=== PATIENT | male | born 1945 | race Hispanic/Latino ===

== ENCOUNTER 2017-05-14 09:41 | Inpatient (IN) | payer OTHER ==
[~2017-05-14 09:41] MED LIST: ISOVUE-370 76%-LOCM 1 ML ONE
--- NOTE | 2017-05-14 11:19 | RAD ---
TWO VIEWS CHEST: HISTORY: Fever. Patient on chemotherapy for prostate cancer. FINDINGS: PA and lateral views of the chest are obtained. Calcification of the aorta is seen. The lungs are well aerated. No evidence of active intrathoraci c disease is seen. No evidence of effusions, pneumonia, or pneumothorax is seen. IMPRESSION: No evidence of acute intrathoracic abnormality is seen. POS: [facility]
[2017-05-14 11:34] LABS: Hematocrit 30.8 % (42.0-52.0); Mean Platelet Volume 7.9 fL (7.4-10.4); White Blood Cell (WBC) Count 31.3 thou/uL (4.8-10.8)
[2017-05-14 11:44] LABS: Prothrombin Time 14.7 SEC (12.0-14.7)
[2017-05-14 11:45] LABS: PTT 41.3 SEC (22.9-36.1)
[2017-05-14 11:53] LABS: ALT (SGPT) 17 U/L (8-55); AST (SGOT) 35 U/L (5-34); Alkaline Phosphatase 225 U/L (40-150); Anion Gap 17 mmol/L (10-20); BUN (Urea Nitrogen) 20 mg/dL (8.4-25.7); Band 9 % (5-11); Bilirubin, Total 0.7 mg/dL (0.2-1.2); Calc. Creatinine Clearance 0 mL/min (70-130); Calcium 8.3 mg/dL (7.8-10.44); Carbon Dioxide 17 mmol/L (23-31); Chloride 98 mmol/L (98-107); Estimated GFR-MDRD 65; Globulin 3.2 g/dL (2.4-3.5); Lipase 25 U/L (8-78); Macrocytosis SLIGHT = 6-15 cells (100X) (0-5/hpf); Magnesium 1.9 mg/dL (1.6-2.6); Metamyelocyte 1 % (0-0); Neutrophil 83 % (42-75); Poikilocytosis SLIGHT = 6-15 cells (100X) (0-5/hpf); Protein, Total 6.6 g/dL (5.8-8.1)
[2017-05-14 11:54] LABS: Lactic Acid - Sepsis 2.4 mmol/L (0.5-2.2)
[2017-05-14 12:03] LABS: Troponin I Less than 0.010 ng/mL (< 0.028)
[2017-05-14] MEDS ORDERED: Sodium Chloride 0.9% 100 ML ONE ×2 (12:16→15:49)
[2017-05-14 13:32] LABS: Bacteria/HPF 1+ HPF (None Seen); RBC/HPF GREATER THAN 50-TNTC HPF (0-3); Squamous Epithelial 0-3 HPF (0-3)
[2017-05-14 13:35] LABS: Bilirubin Moderate (Negative); Blood, Urine Large (Negative); Glucose, Urine (Dipstick) Negative (Negative); Ketone, Urine Trace mg/dL (Negative); Nitrite Positive (Negative); Protein, Urine (Dipstick) 300 mg/dL (Neg-Trace)
[2017-05-14 13:37] LABS: Bacteria/HPF 4+ HPF (None Seen)
[2017-05-14 13:39] LABS: Bilirubin Negative (Negative); Blood, Urine Large (Negative); Glucose, Urine (Dipstick) Negative (Negative); Ketone, Urine Negative (Negative); Nitrite Negative (Negative); Protein, Urine (Dipstick) 300 mg/dL (Neg-Trace); Urobilinogen 0.2 mg/dL (0.2-1.0)
[2017-05-14 13:53] LABS: Hyaline Casts/LPF NONE SEEN LPF (0-3 Hyaline); Yeast-All Forms None Seen HPF (None Seen)
[2017-05-14 13:56] LABS: Hyaline Casts/LPF NONE SEEN LPF (0-3 Hyaline); RBC/HPF GREATER THAN 50-TNTC HPF (0-3); Yeast-All Forms None Seen HPF (None Seen)
[2017-05-14] MEDS ORDERED: Meropenem 1 GM VIAL ONE (15:49)
[2017-05-14] MEDS ORDERED: Norepinephrine 8 MG/0.9% NS 250 ML ONE (15:49)
[2017-05-14 16:29] LABS: Magnesium 1.7 mg/dL (1.6-2.6); Phosphorus 3.1 mg/dL (2.3-4.7)
--- NOTE | 2017-05-14 16:32 | CT ---
HISTORY: 71-year-old with history of fever, nausea. CONTRAST ENHANCED CT IMAGES ABDOMEN AND PELVIS 05/14/[address] images abdomen and pelvis performed. Unfortunately oral contrast was not given. CT images demonstrate some atelectasis in the lung bases. Bilateral nephrostomy tubes are in place. The liver and spleen are unremarkable. The gallbladder and pancreas are unremarkable. Adrenal glands are unremarkable. Cortical cysts seen in the right kidney. No dilated loops of small bowel seen. No evidence of periaortic lymphadenopathy seen. There is a moderate amount of stool in the ascending c olon. There appears to be stool also in the distal small bowel. This has resulted in some distal sma ll bowel dilatation. Atherosclerotic calcification of the abdominal aorta seen. IMPRESSION: 1. Radiopaque material in the bladder concerning for bladder neoplasm with occlusion of the dis chetan ureters. 2. Abnormal dilatation of the distal small bowel with stool extending from the colon into the d istal small bowel. POS: [facility]
--- NOTE | 2017-05-14 16:32 | PDOC.EVN ---
Event Note - Event Note Event Note: Patient seen and examined. Full code. DPOA- makes his own decisions with the help of family.
--- NOTE | 2017-05-14 16:43 | HP ---
DATE OF ADMISSION: 05/14/2017 PRIMARY CARE PHYSICIAN: None. PRIMARY ONCOLOGIST: Dr. Ronquillo. PRIMARY UROLOGIST: Dr. Hardy. CHIEF COMPLAINT: Fever. HISTORY OF PRESENT ILLNESS: Patient is a 71-year-old male with prostate cancer, currently on chemot herapy, who presented with fever over the last 24 hours. He also had some nausea; however, denies a ny other symptoms. His maximum temperature was 101. He currently has bilateral nephrostomy that wa s placed earlier this year. He was admitted for septic shock secondary to urinary tract infection i n January of this year. His C. diff antigen was also positive. He denies any flank pain, cough, short ness of breath, wheezing, altered mentation, diarrhea, or change in the consistency of his urine. In the emergency room, his blood pressure dropped to systolic 70s requiring a central line. His tem perature in the ER was 98.3 with respiration of 18, pulse rate of 131, O2 saturation of 97% on room air. His urinalysis was consistent with UTI. His WBC count was 31.3 with 83% neutrophils. PAST MEDICAL HISTORY: 1. Metastatic prostate cancer, currently on chemotherapy per Dr. Ronquillo. 2. Paroxysmal atrial fibrillation. 3. Septic shock secondary to urinary tract infection in 02/05. 4. Clostridium difficile antigen positive in 02/05. 5. Chronic anemia. 6. Bilateral hydronephrosis, status post bilateral nephrostomy tubes. PAST SURGICAL HISTORY: Bilateral nephrostomies. ALLERGIES: No known drug allergies. CURRENT HOME MEDICATIONS: Diltiazem once a day, dose unknown; prednisone 5 mg daily. The patient d oes not remember all of his home medications. We will try to obtain an accurate list when family timoteo palma. SOCIAL HISTORY: Patient currently lives at home with his family. No current use of smoking, alcoho l or drug use. FAMILY HISTORY: Negative for inheritable diseases. REVIEW OF SYSTEMS: The following complete review of systems was negative, unless otherwise mentione d in the HPI or below: CONSTITUTIONAL: Weight loss or gain, ability to conduct usual activities. SKIN: Rash, itching. EYES: Double vision, pain. ENT/MOUTH: Nose bleeding, neck stiffness, pain, tenderness. CARDIOVASCULAR: Palpitations, dyspnea on exertion, orthopnea. RESPIRATORY: Shortness of breath, wheezing, cough, hemoptysis, fever or night sweats. GASTROINTESTINAL: Poor appetite, abdominal pain, heartburn, nausea, vomiting, constipation, or diar janette. GENITOURINARY: Urgency, frequency, dysuria, nocturia. MUSCULOSKELETAL: Pain, swelling. NEUROLOGIC/PSYCHIATRIC: Anxiety, depression. ALLERGY/IMMUNOLOGIC: Skin rash, bleeding tendency. PHYSICAL EXAMINATION: VITAL SIGNS: As discussed above. GENERAL: A 71-year-old male in no apparent distress. Denies any pain. Thin built. HEENT: Head atraumatic, normocephalic. Sclerae anicteric. Dry mucous membranes. No oral lesion. NECK: Supple, no JVD appreciated. No carotid bruit. No neck stiffness. LUNGS: Clear to auscultation bilaterally with scattered rhonchi at bases. HEART: S1, S2 present. Regular rate and rhythm, tachycardic. No rubs or gallops. ABDOMEN: Soft, nontender, bowel sounds present. Bilateral nephrostomy noted without any drainage a round the tubes. Urine appeared clear. EXTREMITIES: No edema or calf tenderness. NEUROLOGIC: Grossly nonfocal, moves all 4 extremities. PSYCHIATRY: Alert, awake, oriented x3. SKIN: Warm and dry. LYMPH NODES: No palpable lymph nodes in the neck. PERIPHERAL VASCULAR: Radial pulses palpable bilaterally. MUSCULOSKELETAL: No joint swelling or tenderness. SKIN: Warm and dry. LYMPH NODES: No palpable lymph nodes in the neck. LABORATORY FINDINGS: 1. CBC showed WBC 31.3 with hemoglobin 9.9 and platelet of 173. 2. Chemistries showed sodium 128, potassium 4.2, chloride 98, bicarbonate 17, BUN 20, creatinine 1. 12. 3. Cardiac enzymes were normal. 4. BNP 103.9. 5. Lactic acid 2.4. 6. Urinalysis showed greater than 50 wbc's and rbc's with 4+ bacteria. Chest x-ray by my review was negative for infiltrate. Telemetry monitoring by my review showed sinu s tachycardia. IMPRESSION: 1. Severe sepsis with acute organ dysfunctions/septic shock, suspected secondary to urinary tract i nfection. 2. Urinary tract infection, complicated due to indwelling nephrostomy catheter. 3. Metastatic prostate cancer, currently on chemotherapy. 4. Paroxysmal atrial fibrillation, not an anticoagulation candidate due to history of malignancy. 5. History of Clostridium difficile antigen positive. 6. Chronic macrocytic anemia. 7. Lactic acidosis/metabolic acidosis secondary to sepsis. 8. Hyponatremia, probably secondary to dehydration/sepsis. 9. History of septic shock secondary to urinary tract infection with Citrobacter, Enterococcus and pseudomonas in January of this year. He was neutropenic at that time. 10. History of bilateral hydronephrosis, status post bilateral percutaneous nephrostomy tubes. PLAN: The patient will be monitored in the Intensive Care Unit. Critical Care will be consulted. We will start him on Levophed with empiric antibiotics to cover for ESBL. We will continue IV fluid s. Confirm home medications. Deep venous thrombosis prophylaxis. We will check serum osmolality d ue to hyponatremia. We will also check cortisol and CRP. We will consider a stress dose of steroid s if his blood pressure does not respond. We will repeat lactic acid. Plan of care was discussed with the patient and he stated understanding LEVEL OF RISK: High. CONDITION OF THE PATIENT: Critical.
--- NOTE | 2017-05-14 16:45 | RAD ---
AP VIEW OF THE CHEST: 05/14/17 INDICATION: Emergency exam. COMPARISON: Prior exam dated 05/14/17. FINDINGS: Since the comparison examination there has been interval placement of a right subclavian central will ous catheter. The catheter tip projects in the region of the distal SVC. No air space consolidation, pleural effusion, or pneumothorax is evident. Heart size is accentuated by exam technique. IMPRESSION: New right subclavian central venous catheter. POS: [facility]
[2017-05-14] MEDS ORDERED: Ondansetron HCl/PF 4 MG/2 ML Vial ONE (16:56)
[2017-05-14] MEDS ORDERED: Norepinephrine 8 MG/250 ML BAG IVPB PRN (20:33)
[2017-05-14] MEDS ORDERED: Sodium Chloride 0.45% 1,000 ML IV SCH (20:45)
[2017-05-14] MEDS ORDERED: Acetaminophen 325 MG TAB PO PRN (20:49)
[2017-05-14] MEDS ORDERED: Ondansetron HCl/PF 4 MG/2 ML Vial IVP PRN (20:49)
[2017-05-14] MEDS ORDERED: Eucerin (Mineral Oil/Petrolatum,White) 30 gm Jar TOP PRN (20:49)
[2017-05-14] MEDS ORDERED: [UNRECOGNIZED DRUG - REMARK] IVPB PRN (20:49)
[2017-05-14] MEDS ORDERED: Ondansetron ODT 4 MG TAB PO PRN (20:49)
[2017-05-14] MEDS ORDERED: Norepinephrine 8 MG/0.9% NS 250 ML IVPB PRN (20:49)
[2017-05-14] MEDS ORDERED: Senokot 8.6 MG TAB PO PRN (20:49)
[2017-05-14] MEDS ORDERED: Loratadine 10 MG TAB PO PRN (20:49)
[2017-05-14] MEDS ORDERED: Nitroglycerin 0.4 MG TAB (25 Tab Bottle) PO PRN (20:49)
[2017-05-14] MEDS ORDERED: Labetalol HCl 100 MG/20 ML VIAL SLOW IVP PRN (20:49)
[2017-05-14] MEDS ORDERED: Diabetic Tussin 200 MG/10 ML UDCUP PO PRN (20:49)
[2017-05-14] MEDS ORDERED: Polyethylene Glycol 3350 17 GM Packet PO PRN (20:49)
[2017-05-14] MEDS ORDERED: Calcium Carbonate 500 MG ChewTAB PO PRN (20:49)
[2017-05-14] MEDS: Docusate 100 MG CAP PO SCH (21:39)
[2017-05-14] MEDS: Famotidine 20 MG TAB PO SCH (21:39)
[2017-05-14] MEDS: Heparin 5,000 UNITS/ML VIAL SC SCH ×2 (21:39→22:27)
[2017-05-14] MEDS: Dextrose 5 % And 0.9 % NaCl 1,000 ML IV SCH (21:42)
[2017-05-14] MEDS: Melatonin 3 MG TAB PO PRN (23:19)
[2017-05-14] MEDS: Meropenem 1 GM in Sodium Chloride 0.9% 100 ML IVPB SCH (23:36)
[2017-05-15] MEDS: Vancomycin HCl 500 MG in Sodium Chloride 0.9% 100 ML IVPB SCH ×2 (02:17→13:21)
[2017-05-15 04:51] LABS: ALT (SGPT) 14 U/L (8-55); AST (SGOT) 28 U/L (5-34); Alkaline Phosphatase 206 U/L (40-150); Anion Gap 12 mmol/L (10-20); BUN (Urea Nitrogen) 14 mg/dL (8.4-25.7); Bilirubin, Total 0.4 mg/dL (0.2-1.2); Calc. Creatinine Clearance 60 mL/min (70-130); Calcium 7.2 mg/dL (7.8-10.44); Carbon Dioxide 19 mmol/L (23-31); Chloride 108 mmol/L (98-107); Estimated GFR-MDRD 86; Globulin 2.6 g/dL (2.4-3.5); Protein, Total 5.2 g/dL (5.8-8.1)
--- NOTE | 2017-05-15 05:05 | CON ---
DATE OF CONSULTATION: 05/14/2017 INPATIENT CONSULTATION REASON FOR CONSULTATION: Sepsis. HISTORY OF PRESENT ILLNESS: A 71-year-old [place] male with history of metastatic prostate cancer with [place] sum 5+4, trilobar hyperplasia of the prostate, status post TURP, bilateral orchiectomy, radiation therapy in 2012 performed in the [facility]. He presented for new patient evaluation to establish urologic care in 08/2015. He initially presented with mild incomplete void of 124, was treated with Flomax. He was found to have diffuse metastatic disease with trigonal invasion, early rectal invasion, with diffusely metastatic disease. He has been on Taxotere, Zytiga, discontinued due to progression of disease. Patient has been on Zometa. He was also initiated on Xtandi in 10/2016, salvage chemo with Jevtana in 01/2017. cystoscopy demonstrated obliterate trigone with local invasive disease. Subsequently, he developed bilateral hydronephrosis due to tumor invasion of the trigone and has been managed with bilateral perc tubes and interval exchange by Interventional Radiology. The patient has been fully advised regarding his grim prognosis. Desired to proceed with bilateral perc tubes to prevent renal failure as he is undergoing salvage chemotherapy. He states that he is still undergoing Jevtana salvage chemotherapy, presented with fever of 101.6. He is currently hypotensive on akil drip appears comfortable. His bilateral perc tubes are in appropriate position, draining concentrated yellow urine, pink tinged. CT demonstrates no evidence of hydronephrosis or abscess. He is currently in ICU setting. PAST MEDICAL HISTORY: BPH, metastatic prostate cancer, David score of 5+4, medical oncologist Dr. Ronquillo. Atrial fibrillation followed by Dr. Monson ; Coumadin on hold due to intermittent gross hematuria, bilateral per tube PAST SURGICAL HISTORY: TURP in the [facility], bilateral simple orchiectomy also performed in the [facility], radiation therapy in 09/2012 in the [facility]. His prior cystoscopy demonstrated diffuse trigonal invasion in 2015. He has undergone bilateral nephrostomy tube since 10/2016. His recent bilateral perc tube exchange was performed on 04/21/2017. SOCIAL HISTORY: Former smoker, quit. ALLERGIES: No known drug allergies. CURRENT MEDICATIONS: Include Tylenol, calcium, vitamin B12, Cardizem, Colace, hydralazine, labetalol, meropenem, nitroglycerin, norepinephrine drip, Zofran, senna, and vancomycin. PHYSICAL EXAMINATION: VITAL SIGNS: In the emergency room, systolics in the 70s. Central line has been placed. Temperature 98, respiration rate 18, pulse of 131. GENERAL: Patient is a cachectic male, conversational, grossly metastatic lesion could be seen on his skull. LUNGS: Clear. ABDOMEN: Soft. Bilateral perc tubes are appropriately secured in position, draining concentrated yellow urine, pink tingled. EXTREMITIES: No cyanosis, clubbing, or edema. GENITOURINARY: Demonstrates circumcised phallus. Meatus is unremarkable. Bilateral scrotum is empty consistent with orchiectomy. Digital rectal exam demonstrates gross nodular prostate. PERTINENT LABORATORY DATA AND X-RAY FINDINGS: Creatinine is 1.1, lactic acid on admission is 2.4, currently 1.3. White count 31,000, hemoglobin 9.3, platelet 173. INR is 1.1, PTT is 41. Urinalysis demonstrates large blood, positive nitrites, greater than 50 wbc's, rbc's, proteinuria. Cultures have been sent. CT of the abdomen and pelvis on admission demonstrates bilateral perc tubes in appropriate position with no hydronephrosis. Trigonal bladder mass consistent with as known local invasion of the prostate into the bladder. BS 08/2016, demonstrates persistent/ progressive bony metastatic disease. IMPRESSION AND PLAN: 1. Mr. Shaffer is a 71-year-old male with diffusely metastatic prostate cancer, [place] score 5+4, status post transurethral resection of the prostate for benign prostatic hyperplasia symptoms, bilateral orchiectomy, radiation therapy in the [facility]. 2. Locally followed by Dr. Ronquillo for metastatic prostate cancer, refractory disease, currently on salvage, Jevtana. 3. 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 Repeat admission due to urosepsis, on pressors. Recommend Infectious Disease consult, Medical Oncology. Bilateral perc tubes are to continue. The patient does not require an indwelling urethral Root catheter as he has bilateral ureteral obstruction from metastatic local invasive prostate cancer. will follow along with you. The patient was previously counseled regarding palliative care, who did meet with the patient on last admission. [facility]ild[facility]
[2017-05-15 05:36] LABS: Band 5 % (5-11); Hematocrit 24.1 % (42.0-52.0); Macrocytosis MODERATE=16-30 cells (100X) (0-5/hpf); Mean Platelet Volume 8.5 fL (7.4-10.4); Metamyelocyte 19 % (0-0); Neutrophil 72 % (42-75); Red Blood Cell (RBC) Count 2.33 mill/uL (4.70-6.10); Schistocytes SLIGHT = 2-5 cells (100X) (0-1/hpf)
[2017-05-15] MEDS: Dextrose 5 % And 0.9 % NaCl 1,000 ML IV SCH ×3 (07:01→16:57)
[2017-05-15] MEDS: Famotidine 20 MG TAB PO SCH ×2 (09:07→20:00)
[2017-05-15] MEDS: HYDROcodone/Acetaminophen 5/325 mg Tablet PO PRN ×2 (09:07→20:01)
[2017-05-15] MEDS: Meropenem 1 GM in Sodium Chloride 0.9% 100 ML IVPB SCH ×2 (09:07→16:58)
[2017-05-15] MEDS: Docusate 100 MG CAP PO SCH ×2 (09:07→20:00)
[2017-05-15] MEDS: Cyanocobalamin (Vitamin B-12) 1,000 MCG TAB PO SCH (09:07)
[2017-05-15] MEDS: Multivit, Therapeutic 1 TAB PO SCH (09:08)
[2017-05-15] MEDS: Heparin 5,000 UNITS/ML VIAL SC SCH (09:09)
[2017-05-15] MEDS: Folic Acid 1 MG TAB PO SCH (09:09)
--- NOTE | 2017-05-15 11:35 | PDOC.PN ---
- Subjective Encounter Start Date: 05/15/17 Encounter Start Time: 10:55 Subjective: Expresses no specific complaint. -: Alert, in no distress. -: Expresses the desire to be DNR. - Objective Resuscitation Status: Resuscitation Status FULL:Full Resuscitation MAR Reviewed: Yes Vital Signs & Weight: Vital Signs (12 hours) Temp Pulse Resp Pulse Ox 05/15/17 08:00 98.5 F 97 24 H 05/15/17 07:00 98.5 F 05/15/17 06:40 100 05/15/17 04:00 98.3 F 05/15/17 00:00 98.8 F Weight Weight 116 lb 6.465 oz Most Recent Monitor Data Heart Rate from ECG 80 NIBP 104/76 NIBP BP-Mean 82 Respiration from ECG 26 SpO2 100 I&O: 05/14/17 05/15/17 05/16/17 06:59 06:59 06:59 Intake Total 1413 720 Output Total 1375 400 Balance 38 320 Result Diagrams: 05/15/17 04:00 05/15/17 04:00 Phys Exam - Physical Examination HEENT: sclera anicteric Neck: no JVD Respiratory: clear to auscultation bilateral Cardiovascular: RRR Gastrointestinal: soft, non-tender, no distention Musculoskeletal: no edema Psychiatric: A&O x 3 Dx/Plan (1) Bilateral hydronephrosis Code(s): N13.30 - UNSPECIFIED HYDRONEPHROSIS Status: Acute (2) Septic shock Code(s): A41.9 - SEPSIS, UNSPECIFIED ORGANISM; R65.21 - SEVERE SEPSIS WITH SEPTIC SHOCK Status: Acute Plan: continue current therapy. Comment: Improving..off levophed. BxC shows E. Coli. (3) UTI (urinary tract infection) Status: Acute Comment: per above.. (4) Atrial fibrillation Code(s): I48.91 - UNSPECIFIED ATRIAL FIBRILLATION Status: Chronic Plan: Not on heparin , due to hematuria, low platlet. Comment: Stable. (5) Hyponatremia Code(s): E87.1 - HYPO-OSMOLALITY AND HYPONATREMIA Status: Resolved (6) Leukocytosis (leucocytosis) Code(s): D72.829 - ELEVATED WHITE BLOOD CELL COUNT, UNSPECIFIED Status: Acute Comment: due to sepsis.. (7) Bilateral hydronephrosis Code(s): N13.30 - UNSPECIFIED HYDRONEPHROSIS Status: Acute Plan: seen by . Comment: s/p nephrostomy.. - Plan -: continue current therapy.DNR per patient's request. * .
[2017-05-15] MEDS: Saccharomyces boulardii 250 MG CAP PO SCH (11:36)
[2017-05-15] MEDS: Hydrocortisone Sod Succ/PF 100 mg/2 ml Vial IVP SCH ×2 (11:37→17:01)
--- NOTE | 2017-05-15 17:22 | PRG ---
DATE OF SERVICE: 05/15/2017 INPATIENT PROGRESS NOTE SUBJECTIVE: The patient without complaints, doing well. PHYSICAL EXAMINATION: VITAL SIGNS: T-max of 101.4, T-current 98, blood pressure 107/65, on 5 mcg of Levophed. I's and O's 1413 in and 1378 out, left nephrostomy tube 350, right 925. ABDOMEN: Soft. Nephrostomy tubes adequately secured demonstrating hematuria component, it was relatively clear yesterday. LABORATORY DATA: Today's, white count has decreased from 31-22, hemoglobin 9.9 , today is 8.0, platelets are 97, creatinine is 0.8. Urine culture preliminary gram-negative josef. Blood culture and E. coli, 1 out of 2 sets positive. Sensitivity is yet pending. IMPRESSION AND PLAN: 1. Mr. Shaffer is a pleasant 71-year-old male with history of high-grade prostate cancer, status post bilateral orchiectomy, transurethral resection of the prostate, radiation therapy in the [facility]. 2. The patient has failed standard treatment and has been on Jevtana with progression of disease. The patient is fully aware of his poor prognosis. 3. Bilateral ureteral obstruction due to trigonal invasion of metastatic prostate cancer, currently managed with bilateral NT ; currently on pressure support,on broad spectrum antibiotic therapy. patient was previously seen by Infectious Disease. It will be prudent to get Dr. Sanchez involved as well as there is recurrent bacteremia sepsis due to his comorbidities, immunocompromised state. 4. As he demonstrates hematuria component with decreased hemoglobin, recommend holding his heparin. We will notify Hospitalist. We will follow with you on this admission. The patient will most likely require a PICC line for outpatient IV antibiotic therapy. NANCID
--- NOTE | 2017-05-15 18:06 | CON ---
DATE OF CONSULTATION: 05/15/2017 REASON FOR CONSULTATION: Metastatic prostate cancer and sepsis. HISTORY OF PRESENT ILLNESS: The patient is a 71-year-old man with known metastatic prostate carcino ma for the past 1-2 years, treated in our office with hormonal therapy followed by, most recently, Lelo clayton this summer. He received his last dose with Neulasta support within the last 1-2 w eeks. He was admitted for fever and was found to be markedly hypotensive, prompting admission to [facility] Intensive Care Unit. He has now improved with antibiotics, fluids, but continues to require low d ose pressors. Cultures have shown an E. coli in blood and urine consistent with urosepsis. I am as ked to see the patient to provide further management and recommendations for this patient with metas tatic malignancy. ALLERGIES: None. MEDICATIONS ON ADMISSION: Low dose prednisone. CURRENT MEDICATIONS: Includes diltiazem, Pepcid, hydralazine, labetalol, and meropenem with intrave nous Levophed titrated to blood pressure. He also takes ondansetron as needed. He is on vancomycin intravenously as well. PAST MEDICAL HISTORY: The patient has no history of hypertension, diabetes mellitus, or atheroscler otic heart disease. He does have history of Clostridium difficile infection in January of this year. He did have an episode of septic shock in 01/2017, again, secondary to urinary tract infection. The re is a history of paroxysmal atrial fibrillation. PAST SURGICAL HISTORY: He has had bilateral nephrostomies. SOCIAL HISTORY: He lives at home with his family. He does not use alcohol or tobacco. FAMILY HISTORY: No relevant findings. REVIEW OF SYSTEMS: He denies significant cardiopulmonary, GI, , musculoskeletal, or neurological complaints. PHYSICAL EXAMINATION: VITAL SIGNS: Blood pressure 104/73, pulse 80 and regular, respirations 20. GENERAL: The patient is a well-developed and well-nourished man in no acute distress. He is alert, oriented, and cooperative. He is appropriate in conversation and appears comfortable. HEENT: The extraocular movements are intact. Pupils equal, round, and reactive to light. NECK: Supple. LUNGS: Clear. CARDIOVASCULAR: Regular rate and rhythm without murmur, rub, gallop or click. ABDOMEN: No tenderness, organomegaly, masses, bruits or ascites. EXTREMITIES: No clubbing, cyanosis or edema. There are percutaneous nephrostomy leg bags and on ea ch leg. LYMPH: No adenopathy. MUSCULOSKELETAL: No active arthritis. NEUROLOGICAL: No focal findings. LABORATORY: White blood cell count 22.0 with 72% neutrophils, 5 bands, 2 lymphocytes, 2 monocytes, 19 metamyelocytes. The hemoglobin is 8.0, MCV 104, and platelet count 97,000 decreased from 173,000 on admission. Chemistries show sodium 135, potassium 4.2, chloride 108 and carbon dioxide 19. Cre atinine 0.88. A random blood sugar is 133. The albumin is 2.6 and alkaline phosphatase 206. IMPRESSION: 1. Metastatic prostate carcinoma with bilateral ureteral obstruction requiring bilateral nephrostom ies. 2. Escherichia coli urosepsis. RECOMMENDATIONS: We will continue current antibiotic therapy and general supportive measures as he is improving. It should be noted that he did receive Neulasta within the last 10 days, which may ar tifactually increase the white blood cell count. No further specific oncological recommendations at this time. Thanks very much for allowing me to provide my recommendations.
--- NOTE | 2017-05-15 18:43 | CON ---
DATE OF SERVICE: 05/15/2017 A 71-year-old gentleman admitted with recurrent urosepsis who had been in the hospital here before s [facility] several times. He saw Dr. Hardy yesterday, his urologist. He had fever, chills, sweats. Marked weakness in the ER, he was hypotensive, started on fluids and Levophed. We have been consulted regarding the ICU care. He denies any difficulty breathing, coughing, or whe ezing. PAST MEDICAL HISTORY: Prostate cancer with multiple metastases, on chemotherapy. He has had bilate ral nephrostomy tubes in place. Past medical history, otherwise, pertinent for atrial fibrillation. His previous urine showed multiple organisms. PAST SURGICAL HISTORY: Cystoscopy, prostate surgery, orchiectomy, nephrostomy tubes. SOCIAL HISTORY: Presently, nonsmoker. MEDICATIONS: His medicine from home includes prednisone 5, vitamin, hydrocodone, Cardizem, and Cipr o. He is now started on meropenem. REVIEW OF SYSTEMS: Otherwise negative. PHYSICAL EXAMINATION: VITAL SIGNS: Blood pressure is improved 112/66, pulse 80, sats 97%, respirations 22. His I's and O 's are 1413 in and 1375 out. CHEST: Reveals decreased breath sounds, no wheezing. CARDIAC: Normal S1, S2. ABDOMEN: Soft, no masses. LABORATORY DATA: So far, his blood culture is growing E. coli. IMPRESSION: 1. Sepsis syndrome, probably secondary to a renal source. 2. Bilateral nephrostomy tube. PLAN: Continue meropenem, continue thiamine, vitamins C, and steroids. We will notify Dr. Rose.
[2017-05-15] MEDS: Melatonin 3 MG TAB PO PRN (21:59)
[2017-05-16] MEDS: Hydrocortisone Sod Succ/PF 100 mg/2 ml Vial IVP SCH ×4 (00:22→17:56)
[2017-05-16] MEDS: Meropenem 1 GM in Sodium Chloride 0.9% 100 ML IVPB SCH ×2 (00:23→08:00)
[2017-05-16 01:37] LABS: Vancomycin, Trough 6.9 ug/mL
[2017-05-16] MEDS: Vancomycin HCl 500 MG in Sodium Chloride 0.9% 100 ML IVPB SCH (02:58)
[2017-05-16] MEDS ORDERED: Vancomycin HCl 1 GM in Premix Bag 1 BAG IVPB SCH (03:00)
[2017-05-16] MEDS: Dextrose 5 % And 0.9 % NaCl 1,000 ML IV SCH ×2 (04:32→13:50)
[2017-05-16 05:58] LABS: ALT (SGPT) 10 U/L (8-55); AST (SGOT) 26 U/L (5-34); Alkaline Phosphatase 173 U/L (40-150); Anion Gap 10 mmol/L (10-20); BUN (Urea Nitrogen) 9 mg/dL (8.4-25.7); Bilirubin, Total 0.4 mg/dL (0.2-1.2); Calc. Creatinine Clearance 67 mL/min (70-130); Calcium 7.3 mg/dL (7.8-10.44); Carbon Dioxide 21 mmol/L (23-31); Chloride 107 mmol/L (98-107); Estimated GFR-MDRD Greater than 90; Globulin 2.3 g/dL (2.4-3.5); Protein, Total 4.7 g/dL (5.8-8.1)
[2017-05-16 06:27] LABS: Band 35 % (5-11); Hematocrit 21.3 % (42.0-52.0); Hypochromia SLIGHT = 6-15 cells (100X) (0-5/hpf); Metamyelocyte 3 % (0-0); Microcytosis SLIGHT = 6-15 cells (100X) (0-5/hpf); Neutrophil 60 % (42-75); Red Blood Cell (RBC) Count 2.04 mill/uL (4.70-6.10); White Blood Cell (WBC) Count 12.5 thou/uL (4.8-10.8)
--- NOTE | 2017-05-16 07:44 | PRG ---
DATE OF SERVICE: 05/16/2017 SUBJECTIVE: The patient without flank pain, complains of left nephrostomy tube leakage. Denies abdominal pain, nausea, vomiting, chest pain, shortness of breath. PHYSICAL EXAMINATION: VITAL SIGNS: Vasopressors has been off. Blood pressure currently is running at systolic 80s-94, diastolic 67, otherwise unremarkable. GENERAL: No fever for the last 36-48 hours. Left nephrostomy tube output 3500 , right 1200. ABDOMEN: Soft, nontender, nondistended. GENITOURINARY: Nephrostomy tube on the left was assessed as there is leakage, I was able to irrigate and aspirate appears to be in appropriate position; however, it is somewhat slow to aspirate. EXTREMITIES: No cyanosis, clubbing or edema. PERTINENT LABORATORY DATA: White count has decreased to 12,000 from 22,000, hemoglobin has decreased from 8-6.7, platelets 97,000-50,000, creatinine 0.7. Blood culture demonstrates E. coli, sensitivities pending, currently on meropenem and vancomycin. IMPRESSION AND PLAN: Mr. Shaffer is a 71-year-old male with history of metastatic prostate cancer, chemo refractory on salvage chemotherapy, immunocompromised state. The patient presents with E. coli urosepsis. 1. History of bilateral ureteral obstruction due to advanced prostate cancer, managed with bilateral perk tubes. His left nephrostomy tube was upsized to 10 Faroese caliber, exchange 04/21/[address] Oliva. He was tentatively scheduled for 6 week interval nephrostomy tube exchange 06/07, currently admitted for Escherichia coli urosepsis. We will transfuse 2 units due to anemia, patient was previously on heparin which was discontinued. Oncology following. Currently, he has thrombocytopenia and anemia. Recommend continue monitoring CBC. Medical evaluation regarding thrombocytopenia would be prudent, likely heparin induced. monitor his CBC and platelets closely. Patient is currently n.p.o., we will have Interventional Radiology perform a nephrostogram and possible nephrostomy tube exchange today. Continue meropenem and vancomycin, Infectious Disease consult pending. [facility]
--- NOTE | 2017-05-16 07:53 | PRG ---
DATE OF SERVICE: 05/16/2017 He was taken off the Levophed earlier this morning. He is scheduled to go down to specials to have his nephrostomy tubes adjusted today. PHYSICAL EXAMINATION: VITAL SIGNS: Temperature is 98.3, pulse 87, blood pressure 94/67, 24-hour intake is 4112, output 23 75. HEENT: Unremarkable. NECK: No JVD. CHEST: Clear. CARDIAC: S1 and S2 regular. ABDOMEN: Soft. EXTREMITIES: No edema. He has bilateral nephrostomy tubes extending to leg urinal bag in both legs . LABORATORY DATA: Sodium 134, potassium 3.6, chloride 107, CO2 21, BUN 9, creatinine 0.7, glucose 13 5. White blood cell count 12.5, hematocrit 21.3, platelet count 50. Cultures are growing out E. co li that is sensitive to everything except for Cipro, Levaquin, and Bactrim. ASSESSMENT: 1. Urosepsis. 2. Anemia of chronic disease. PLAN: 1. Discontinue the vancomycin since no Staph is growing from cultures. 2. Continue the meropenem. 3. Adjust nephrostomy tubes. 4. Will leave in ICU until he is done with interventional procedure.
--- NOTE | 2017-05-16 08:42 | PDOC.PN ---
- Subjective Encounter Start Date: 05/16/17 Encounter Start Time: 08:41 Patient seen and examined. No new complaints. No overnight events.\ feeling good today. No c/o pain today. - Objective Resuscitation Status: Resuscitation Status DNR:Do Not Resuscitate MAR Reviewed: Yes Vital Signs & Weight: Vital Signs (12 hours) Temp Pulse Ox 05/16/17 07:03 94 L 05/16/17 04:00 98.3 F 05/16/17 00:00 97.9 F Weight Weight 107 lb 5.842 oz Most Recent Monitor Data Heart Rate from ECG 77 NIBP 94/67 NIBP BP-Mean 73 Respiration from ECG 16 SpO2 100 I&O: 05/15/17 05/16/17 05/17/17 06:59 06:59 06:59 Intake Total 1413 4112.4 Output Total 1375 2375 Balance 38 1737.4 Result Diagrams: 05/16/17 04:45 05/16/17 04:45 Phys Exam - Physical Examination HEENT: sclera anicteric Neck: supple Respiratory: no wheezing, no rales Cardiovascular: RRR Gastrointestinal: soft Musculoskeletal: no edema Neurological: non-focal, moves all 4 limbs Psychiatric: normal affect, A&O x 3 Skin: no rash Dx/Plan (1) Bilateral hydronephrosis Code(s): N13.30 - UNSPECIFIED HYDRONEPHROSIS Status: Acute (2) Leukocytosis (leucocytosis) Code(s): D72.829 - ELEVATED WHITE BLOOD CELL COUNT, UNSPECIFIED Status: Acute Comment: due to sepsis.. (3) Septic shock Code(s): A41.9 - SEPSIS, UNSPECIFIED ORGANISM; R65.21 - SEVERE SEPSIS WITH SEPTIC SHOCK Status: Acute Comment: Improving..off levophed. BxC shows E. Coli. (4) UTI (urinary tract infection) Status: Acute Comment: per above.. (5) Sepsis Code(s): A41.9 - SEPSIS, UNSPECIFIED ORGANISM Status: Resolved - Plan cont current plan of care, plan discussed w/ family, continue antibiotics, DVT proph w/heparin * . Vanc stopped WBC better culture with Ecoli continue Merrem Nephrostomy tube exchange today. Appreciated PCCM, oncology and urology input. AM labs.
[2017-05-16] MEDS: Multivit, Therapeutic 1 TAB PO SCH ×2 (09:00→13:47)
[2017-05-16] MEDS: Folic Acid 1 MG TAB PO SCH ×2 (09:00→13:47)
[2017-05-16] MEDS: Cyanocobalamin (Vitamin B-12) 1,000 MCG TAB PO SCH (09:00)
[2017-05-16] MEDS: Docusate 100 MG CAP PO SCH ×3 (09:00→20:53)
[2017-05-16] MEDS: Famotidine 20 MG TAB PO SCH ×3 (09:00→20:53)
--- NOTE | 2017-05-16 11:53 | SPC ---
FLUOROSCOPIC GUIDED RIGHT NEPHROSTOMY CATHETER EXCHANGE FLUOROSCOPIC GUIDED LEFT PERCUTANEOUS NEPHROSTOMY CATHETER EXCHANGE BILATERAL NEPHROSTOGRAMS: FINDINGS: After explaining the procedure and answering all questions, Each flank and percutaneous nephrostomy drain was prepped and draped in the usual sterile fashion. A small amount of contrast was used to o pacify the nondilated right renal collecting system and ureter. Contrast material extended to the d istal right ureter but not into the urinary bladder. An 0.035 Bentsen wire was used to hold position, and the catheter was exchanged for a new 10 German percutaneous nephrostomy drain. The catheter was secured externally with 2-0 Ethilon suture and bu ffered local anesthesia and left draining to gravity. The left nephrostomy catheter was then carefully injected with a small amount of contrast material. The left renal collecting system and ureter was decompressed. Some leakage was confirmed at the ne phrostomy site. Initially, contrast material extended to but not beyond the left ureterovesicular j unction. At the end of the procedure, some contrast material was seen within the urinary bladder. A 0.035 Amplatz wire was used to hold position while the old left nephrostomy catheter was exchanged for a new 12 German locking loop nephrostomy catheter, with the coil placed in the nondilated left renal pelvis. Position was confirmed. The catheter was left draining to gravity and secured inspector scales ally with 2-0 Ethilon suture and buffered local anesthesia. The patient tolerated the procedure wel l and was returned in unchanged condition. IMPRESSION: 1. Technically successful bilateral percutaneous nephrostomy exchange, upsizing the left PCN to 12 German drainage catheter due to previous leaking. 2. Obstruction of the right ureterovesicular junction and partial obstruction of the left ureterove sicular junction. POS: KOFFI
[2017-05-16] MEDS: HYDROcodone/Acetaminophen 5/325 mg Tablet PO PRN ×2 (13:28→17:55)
[2017-05-16] MEDS: Saccharomyces boulardii 250 MG CAP PO SCH (13:30)
[2017-05-16] MEDS: cefTRIAXone\\ROCEPHIN 2 GM in Sodium Chloride 0.9% 100 ML IVPB SCH (13:58)
--- NOTE | 2017-05-16 15:40 | CON ---
DATE OF CONSULTATION: 05/16/2017 REASON FOR CONSULTATION: Bacteremia. HISTORY OF PRESENT ILLNESS: A 71-year-old gentleman, whom I had seen in 01/2017 when he presented w ith a history of metastatic prostate cancer, prior TURP and bilateral orchiectomy in [facility] as well as radiation therapy. When he arrived in [facility], he was seen by Dr. Hardy and dem onstrated postvoid residual increased, which was managed with Flomax. CT of bone then showed diffus e metastatic disease and local invasion of rectum and trigonal area. He developed progression of di sease with bilateral hydronephrosis, initially declined nephrostomy tube placement. He was given ch emotherapy and eventually underwent bilateral nephrostomy tube placement first one in December and second in January. I saw him in January with neutropenic fever and microbiology data included Citrobacter and E nterococcus and eventually he was transitioned to oral antimicrobial regimen and discharged. He is admitted at this time, which is the first admission after last discharge, has been referred because of fever and nausea. There is a reported C. diff antigen test positive. Initial exam showed a syst olic in the 70s, which required central line placement. Initial temperature 98.3, respiratory rate 18, pulse is 131, O2 sat 97%. White cell count was 31,000 with 83% neutrophils. The patient was gi will broad spectrum coverage with meropenem, which is still receiving; he had a dose of vancomycin as well. Currently, Mr. Shaffer is sitting up in bed, eating a big hamburger. He had his stents replac ed this morning and feels much better. No headaches, visual symptoms, sore throat, odynophagia, dys phagia, no cough or sputum production or chest pain. No abdominal pain. No neurological symptoms. PAST MEDICAL HISTORY: BPH, prostate cancer with bone mets and local invasion, urinary obstruction r equiring bilateral nephrostomy tubes, chemotherapy with a Taxol derivative, history of atrial fibril lation on and off anticoagulation due to prior hematuria. PAST SURGICAL HISTORY: Includes TURP in [facility], orchiectomy bilateral, RXT. SOCIAL HISTORY: Former smoker, immigrant from [facility]. CURRENT MEDICATION LIST: Includes [place], ascorbic acid, diltiazem, docusate, Pepcid, Solu-Cortef, m eropenem, he had a dose of vancomycin and thiamine. PHYSICAL EXAMINATION: VITAL SIGNS: T-max 101.4 on arrival, he is down to 98.3, blood pressure 94/67, pulse 77, supplement ation of 2 L, O2 sat 94%. SKIN: With bilateral nephrostomy tubes which have been replaced this morning by Radiology. The pat ient has central line in place in the right subclavian location. No lymphadenopathy. HEENT: Ocular movements are conjugate. Sclerae are white. Oral cavity with moist oral mucosa, no lesions. NECK: Supple. LUNGS: With symmetric air entry. HEART: S1, S2, regular rate. ABDOMEN: Soft. Not distended. No ascites. No bladder distention. EXTREMITIES: Moves his extremities equally without focal weakness, although he is diffusely weak an d trace edema in lower extremities. Pulses are 1+ in dorsalis pedis. Plantar responses are flexor. No clonus. NEUROLOGIC: His cognitive function appears to be intact. LABORATORY DATA: White cell count is down to 12,000, hemoglobin 6.7, MCV 104, platelets 50,000. IN R 1.1. Sodium 134, creatinine 0.72 with a normal liver profile except for alkaline phosphatase 173, which is probably bone origin. Albumin 2.4. Urinalysis with greater than 50 wbc's, greater than 5 0 rbc's. Vancomycin trough 6.9. Microbiology with E. coli with a very broad susceptibility profile except for quinolones. It is also resistant to Bactrim. It is susceptible to ampicillin. ASSESSMENT: Metastatic prostate cancer with bone and local invasion, and urosepsis secondary to larry rly susceptible Escherichia coli except for quinolones and Bactrim. The patient has had stents repl aced and will transition him to oral IV Rocephin and eventually for discharge planning, transition t o amoxicillin 500 mg 3 times daily. Duration of therapy around 2 weeks.
[2017-05-16] MEDS: Melatonin 3 MG TAB PO PRN (21:38)
[2017-05-17 04:40] LABS: Hematocrit 28.2 % (42.0-52.0); Mean Platelet Volume 11.7 fL (7.4-10.4); Red Blood Cell (RBC) Count 2.83 mill/uL (4.70-6.10); White Blood Cell (WBC) Count 5.6 thou/uL (4.8-10.8)
[2017-05-17] MEDS: Dextrose 5 % And 0.9 % NaCl 1,000 ML IV SCH ×3 (05:12→22:19)
[2017-05-17 05:13] LABS: ALT (SGPT) 8 U/L (8-55); AST (SGOT) 21 U/L (5-34); Alkaline Phosphatase 116 U/L (40-150); Anion Gap 13 mmol/L (10-20); BUN (Urea Nitrogen) 11 mg/dL (8.4-25.7); Bilirubin, Total 0.3 mg/dL (0.2-1.2); Calc. Creatinine Clearance 67 mL/min (70-130); Calcium 7.2 mg/dL (7.8-10.44); Carbon Dioxide 19 mmol/L (23-31); Chloride 108 mmol/L (98-107); Estimated GFR-MDRD Greater than 90; Globulin 2.4 g/dL (2.4-3.5); Protein, Total 4.9 g/dL (5.8-8.1)
[2017-05-17] MEDS: Hydrocortisone Sod Succ/PF 100 mg/2 ml Vial IVP SCH ×5 (05:13→23:46)
[2017-05-17 05:59] LABS: Anisocytosis SLIGHT = 6-15 cells (100X) (0-5/hpf); Band 4 % (5-11); Macrocytosis MODERATE=16-30 cells (100X) (0-5/hpf); Metamyelocyte 22 % (0-0); Myelocyte 1 % (0-0); Neutrophil 66 % (42-75); Ovalocytes SLIGHT = 2-5 cells (100X) (0-1/hpf); Tear Drops SLIGHT = 2-5 cells (100X) (0-1/hpf)
--- NOTE | 2017-05-17 07:24 | PRG ---
DATE OF SERVICE: 05/17/2017 SUBJECTIVE: The patient is feeling well. Denies chest pain, shortness of breath. PHYSICAL EXAMINATION: VITAL SIGNS: Stable. He is off pressors, 98.6, 99, 114/70. I's and O's 3 liters in, the left neph rostomy tube 880, right nephrostomy tube 810. Bilateral neph tube demonstrating red tinge hematuria . No clots draining uneventfully with no significant leak. ABDOMEN: Soft, nontender, nondistended, no CVA tenderness. EXTREMITIES: No cyanosis, clubbing or edema. LABORATORY DATA: This morning, white count 5, hemoglobin 9.1 appropriately after 2 units of packed RBCs, platelets have decreased to 32,000. Creatinine 0.7. IMPRESSION AND PLAN: 1. Mr. Shaffer is a 71-year-old male with metastatic prostate cancer, [place] score metastatic prosta te cancer progression of disease chemo refractory status post TURP, radiation therapy, bilateral orc hiectomy in the [facility]. 2. Bilateral hydronephrosis, secondary to ureteral obstruction from local invasion of prostate canc er, bilateral neph tubes have been changed due to leakage. 3. Anemia, status post 2 units of packed RBCs. 4. Thrombocytopenia. Heparin has been discontinued. Dr. Rose will provide platelet transfusion today, he is off pressors, stable to be transferred to Medical Floor/Oncology. Recommend Hematolog y assessment regarding thrombocytopenia. Fall precaution advised due to low platelet count, increas ed risk of bleeding episode. I appreciate Infectious Disease consult, antibiotic regimen advised by Dr. Sanchez.
--- NOTE | 2017-05-17 07:27 | PRG ---
DATE OF SERVICE: 05/17/2017 He is doing well, had no acute complaints. His urostomy tubes were reconfigured yesterday. PHYSICAL EXAMINATION: VITAL SIGNS: Temperature is 98.6, pulse 64, blood pressure 114/70. He is on no vasopressors, his O 2 sat is 99%. Total intake for 24 hours 3072, output 2215. HEENT: Unremarkable. NECK: No JVD. CHEST: Clear to auscultation. CARDIAC: S1 and S2 regular. ABDOMEN: Soft. EXTREMITIES: No edema. His urine is bloody. LABORATORY DATA: White blood cell count 5.6, hematocrit 28.2, and platelet count 32. Sodium 136, p otassium 3.7, chloride 108, CO2 19, BUN 11, creatinine 0.7, glucose 143. ASSESSMENT: 1. Metastatic prostate cancer. 2. Ureteral obstruction. 3. Escherichia coli sepsis. PLAN: 1. He will be transferred out to the floor. He will be given platelets for his thrombocytopenia. 2. He will continue IV Rocephin. He will continue hydrocortisone, thiamine, and vitamin C for the next couple of days. 3. Increase activity as tolerated.
[2017-05-17] MEDS: Docusate 100 MG CAP PO SCH ×2 (09:09→20:22)
[2017-05-17] MEDS: Multivit, Therapeutic 1 TAB PO SCH (09:09)
[2017-05-17] MEDS: Folic Acid 1 MG TAB PO SCH (09:09)
[2017-05-17] MEDS: Famotidine 20 MG TAB PO SCH ×2 (09:09→20:19)
[2017-05-17] MEDS: Cyanocobalamin (Vitamin B-12) 1,000 MCG TAB PO SCH (10:19)
[2017-05-17] MEDS: Saccharomyces boulardii 250 MG CAP PO SCH (10:19)
--- NOTE | 2017-05-17 12:49 | PDOC.PN ---
- Subjective Encounter Start Date: 05/17/17 Encounter Start Time: 12:46 Patient seen and examined. No new complaints. No overnight events feels better today. at bedside No pain reported. No N/V. - Objective Resuscitation Status: Resuscitation Status DNR:Do Not Resuscitate MAR Reviewed: Yes Vital Signs & Weight: Vital Signs (12 hours) Temp Pulse Pulse Resp BP BP Pulse Ox 05/17/17 09:27 97.4 F L 86 18 122/75 100 05/17/17 09:05 98.2 F 86 20 128/88 98 05/17/17 08:32 99.0 F 88 18 120/82 98 05/17/17 08:11 98.4 F 87 20 115/80 97 05/17/17 08:00 98.2 F 86 20 98 05/17/17 07:00 98.4 F 05/17/17 06:43 99 05/17/17 06:42 99 05/17/17 04:00 98.6 F 05/17/17 01:24 100 Weight Admit Weight 107 lb Weight 112 lb 6.972 oz Most Recent Monitor Data Heart Rate from ECG 81 NIBP 128/88 NIBP BP-Mean 107 Respiration from ECG 20 SpO2 99 I&O: 05/16/17 05/17/17 05/18/17 06:59 06:59 06:59 Intake Total 4112.4 3072 974 Output Total 2375 2115 190 Balance 1737.4 957 784 Result Diagrams: 05/17/17 03:41 05/17/17 03:41 Phys Exam - Physical Examination Constitutional: NAD HEENT: sclera anicteric Neck: supple Respiratory: no wheezing, no rales Cardiovascular: RRR Gastrointestinal: soft Musculoskeletal: no edema Neurological: non-focal, moves all 4 limbs Psychiatric: normal affect, A&O x 3 Skin: no rash Dx/Plan (1) Bilateral hydronephrosis Code(s): N13.30 - UNSPECIFIED HYDRONEPHROSIS Status: Acute (2) Leukocytosis (leucocytosis) Code(s): D72.829 - ELEVATED WHITE BLOOD CELL COUNT, UNSPECIFIED Status: Acute Comment: due to sepsis.. (3) Septic shock Code(s): A41.9 - SEPSIS, UNSPECIFIED ORGANISM; R65.21 - SEVERE SEPSIS WITH SEPTIC SHOCK Status: Acute Comment: Improving..off levophed. BxC shows E. Coli. (4) UTI (urinary tract infection) Status: Acute Comment: per above.. - Plan cont current plan of care, continue antibiotics, PT/OT, social worker masters, DVT proph w/SCDs * . continue Abx which was changed to Rocephin No heparin SCDS PT to eval and treat Appreciate input from urology, PCCM and ID. s/p PRBC and platelets. AM labs. Monitor counts. f/u with Onc for recs.
[2017-05-17] MEDS: cefTRIAXone\\ROCEPHIN 2 GM in Sodium Chloride 0.9% 100 ML IVPB SCH (14:54)
[2017-05-17] MEDS: HYDROcodone/Acetaminophen 5/325 mg Tablet PO PRN (20:24)
[2017-05-17] MEDS: Melatonin 3 MG TAB PO PRN (20:41)
[2017-05-18] MEDS: Hydrocortisone Sod Succ/PF 100 mg/2 ml Vial IVP SCH ×3 (06:07→17:22)
[2017-05-18 06:19] LABS: Band 14 % (5-11); Hematocrit 28.9 % (42.0-52.0); Mean Platelet Volume 12.3 fL (7.4-10.4); Metamyelocyte 3 % (0-0); Neutrophil 64 % (42-75); Nucleated RBC 1 % (0); Red Blood Cell (RBC) Count 2.91 mill/uL (4.70-6.10); White Blood Cell (WBC) Count 3.4 thou/uL (4.8-10.8)
--- NOTE | 2017-05-18 07:13 | PRG ---
DATE OF SERVICE: 05/18/2017 SUBJECTIVE: The patient without complaints, doing well. PHYSICAL EXAMINATION: VITAL SIGNS: Stable. He is afebrile. I's and O's 3045 in, 2900 out, left nephrostomy tube. 1525, right 1175. ABDOMEN: Soft, nontender, nondistended. No CVA tenderness. Bilateral neph tubes draining transparent red urine output. EXTREMITIES: No cyanosis, clubbing, edema. LABORATORY DATA: White count 3.4, hemoglobin stable at 9.4, platelets improved after transfusion of platelets yesterday of 53. IMPRESSION AND PLAN: 1. Mr. Shaffer is a 71-year-old male with history of metastatic prostate cancer, status post transurethral resection of prostate, bilateral orchiectomy, radiation therapy in the [facility]. 2. Chemo refractory disease on salvage chemo. 3. Admitted for recurrent urosepsis. 4. Bilateral NT secondary to ureteral obstruction from local invasion of the trigone. 5. Thrombocytopenia. The patient had his nephrostomy tube exchanged 05/16 with no subsequent leakage. From sepsis perspective, he is doing well off pressors, hemodynamically stable. Monitor CBC. From a urologic perspective, the patient is cleared to be discharged once hematuria is relatively clear, hemoglobin/PLT stable. Antibiotic regimen per Infectious Disease. We will continue to perform interval nephrostomy tube exchanges per Interventional Radiology. I appreciate Medical Oncology consult. Contraindicated for heparin, Lovenox anticoagulation for thrombosis prophylaxis due to hematuria, thrombocytopenia. MTDD
--- NOTE | 2017-05-18 07:26 | PDOC.PN ---
- Subjective Encounter Start Date: 05/18/17 Encounter Start Time: 07:23 - Objective Resuscitation Status: Resuscitation Status DNR:Do Not Resuscitate MAR Reviewed: Yes Vital Signs & Weight: Vital Signs (12 hours) Temp Pulse Resp BP Pulse Ox 05/17/17 23:52 98.1 F 05/17/17 19:49 99.0 F 94 16 98 05/17/17 19:33 99.0 F 94 16 120/77 98 Weight Admit Weight 107 lb Weight 112 lb 6.972 oz Most Recent Monitor Data Heart Rate from ECG 81 NIBP 128/88 NIBP BP-Mean 107 Respiration from ECG 20 SpO2 99 I&O: 05/17/17 05/18/17 05/19/17 06:59 06:59 06:59 Intake Total 3072 5345 Output Total 2221 2900 Balance 957 9795 Result Diagrams: 05/18/17 05:43 05/17/17 03:41 Phys Exam - Physical Examination Constitutional: NAD HEENT: moist MMs, sclera anicteric Neck: no nodes, no JVD Respiratory: no wheezing, no rales, no rhonchi Cardiovascular: no significant murmur, no rub Gastrointestinal: soft, non-tender, positive bowel sounds Neurological: non-focal, moves all 4 limbs Lymphatic: no nodes Psychiatric: normal affect Skin: no rash, normal turgor -: b/l perc neph tubes with bloody urine Dx/Plan (1) Bilateral hydronephrosis Code(s): N13.30 - UNSPECIFIED HYDRONEPHROSIS Status: Acute (2) Septic shock Code(s): A41.9 - SEPSIS, UNSPECIFIED ORGANISM; R65.21 - SEVERE SEPSIS WITH SEPTIC SHOCK Status: Acute Comment: Improving..off levophed. BxC shows E. Coli. (3) UTI (urinary tract infection) Status: Acute Comment: per above.. - Plan Metastatic Prostate Cancer s/p TURP with b/l Ureteral obstruction * s/p bilateral percutaneous nephrostomy tubes E. coli UTI with septic shock * pressors weaned off * appreciate Urology, Pulm and ID input * continue Rocephin - upon discharge, will convert to Amoxicillin 500mg PO TID for 2 weeks * check labs in AM Physical Debility * PT Dispo: Oncology unit.
[2017-05-18] MEDS: Docusate 100 MG CAP PO SCH ×2 (08:21→20:50)
[2017-05-18] MEDS: Dextrose 5 % And 0.9 % NaCl 1,000 ML IV SCH ×2 (08:22→19:03)
[2017-05-18] MEDS: Cyanocobalamin (Vitamin B-12) 1,000 MCG TAB PO SCH (08:22)
[2017-05-18] MEDS: Multivit, Therapeutic 1 TAB PO SCH (08:22)
[2017-05-18] MEDS: Folic Acid 1 MG TAB PO SCH (08:22)
[2017-05-18] MEDS: Famotidine 20 MG TAB PO SCH ×3 (10:35→20:51)
[2017-05-18] MEDS: Saccharomyces boulardii 250 MG CAP PO SCH (13:11)
[2017-05-18] MEDS: cefTRIAXone\\ROCEPHIN 2 GM in Sodium Chloride 0.9% 100 ML IVPB SCH (13:14)
--- NOTE | 2017-05-18 13:20 | PRG ---
DATE OF SERVICE: 05/18/2017 He is feeling better, noticed changed from a more hemorrhagic content of the nephrostomy bags. His spontaneous urethral voiding also has that color. No respiratory symptoms or abdominal pain, no laura rrhea. He has been afebrile. Lungs clear. S1, S2, regular rate. Bilateral nephrostomy tubes. Abdomen is soft. Moves all extremities equally. Cognitive function appears to be intact. LABORATORY DATA: White cell count 3.4, hemoglobin 9.4, platelets 53,000, differential with 64% neut rophils, 14% lymphocytes, 14% bands actually. Sodium 136, creatinine 0.72 with normal transaminases . Microbiology with the quite susceptible E. coli except for quinolones. The plan is to transition to amoxicillin or ampicillin 500 mg 3 times a day for discharge planning for 2 weeks of treatment d uration. ASSESSMENT AND DISCUSSION: Metastatic prostate cancer with bone local invasion, urosepsis with obs truction. The patient has had stents replaced and is currently receiving Rocephin to be transitione d to amoxicillin for discharge planning.
[2017-05-18] MEDS ORDERED: Temazepam 15 MG CAP PO PRN (21:03)
[2017-05-18] MEDS: Temazepam 15 MG CAP PO SCH (21:25)
[2017-05-19] MEDS: Dextrose 5 % And 0.9 % NaCl 1,000 ML IV SCH ×3 (04:00→21:28)
[2017-05-19 04:42] LABS: Band 13 % (5-11); Mean Platelet Volume 10.8 fL (7.4-10.4); Metamyelocyte 3 % (0-0); Neutrophil 61 % (42-75); Nucleated RBC 1 % (0); Red Blood Cell (RBC) Count 2.84 mill/uL (4.70-6.10); White Blood Cell (WBC) Count 3.7 thou/uL (4.8-10.8)
[2017-05-19 04:48] LABS: Anion Gap 13 mmol/L (10-20); BUN (Urea Nitrogen) 7 mg/dL (8.4-25.7); Calc. Creatinine Clearance 74 mL/min (70-130); Calcium 7.4 mg/dL (7.8-10.44); Carbon Dioxide 25 mmol/L (23-31); Chloride 106 mmol/L (98-107); Estimated GFR-MDRD Greater than 90
[2017-05-19] MEDS: Hydrocortisone Sod Succ/PF 100 mg/2 ml Vial IVP SCH ×2 (06:41)
--- NOTE | 2017-05-19 07:29 | PDOC.PN ---
- Subjective Encounter Start Date: 05/19/17 Encounter Start Time: 07:25 - Objective Resuscitation Status: Resuscitation Status DNR:Do Not Resuscitate MAR Reviewed: Yes Vital Signs & Weight: Vital Signs (12 hours) Temp Pulse Resp BP BP Pulse Ox 05/19/17 04:00 98.7 F 84 16 125/80 96 05/18/17 23:40 97.9 F 99 16 140/88 100 05/18/17 20:00 98.4 F 90 16 99 05/18/17 19:42 98.4 F 90 16 139/85 99 Weight Admit Weight 107 lb Weight 135 lb 6.4 oz Most Recent Monitor Data Heart Rate from ECG 81 NIBP 128/88 NIBP BP-Mean 107 Respiration from ECG 20 SpO2 99 I&O: 05/18/17 05/19/17 05/20/17 06:59 06:59 06:59 Intake Total 5345 2570 Output Total 2900 3975 Balance 2445 -1405 Result Diagrams: 05/19/17 03:58 05/19/17 03:58 Phys Exam - Physical Examination Constitutional: NAD HEENT: moist MMs, sclera anicteric Neck: no nodes, no JVD Respiratory: no wheezing, no rales, no rhonchi Cardiovascular: no significant murmur, no rub Gastrointestinal: soft, non-tender, positive bowel sounds Psychiatric: normal affect Dx/Plan (1) Bilateral hydronephrosis Code(s): N13.30 - UNSPECIFIED HYDRONEPHROSIS Status: Acute (2) Septic shock Code(s): A41.9 - SEPSIS, UNSPECIFIED ORGANISM; R65.21 - SEVERE SEPSIS WITH SEPTIC SHOCK Status: Acute Comment: Improving..off levophed. BxC shows E. Coli. (3) UTI (urinary tract infection) Status: Acute Comment: per above.. - Plan Metastatic Prostate Cancer s/p TURP with b/l Ureteral obstruction * s/p bilateral percutaneous nephrostomy tubes * check labs in AM E. coli UTI with septic shock * pressors weaned off * appreciate Urology, Pulm and ID input * continue Rocephin - upon discharge, will convert to Amoxicillin 500mg PO TID for 2 weeks * check labs in AM Physical Debility * PT Hypokalemia * will replace today to prevent cardiac arrhythmias * check K and Mg in AM Dispo: Oncology unit.
[2017-05-19] MEDS ORDERED: Potassium Chloride 20 MEQ TAB PO SCH (07:30)
--- NOTE | 2017-05-19 07:33 | PRG ---
DATE OF SERVICE: 05/19/2017 SUBJECTIVE: The patient without complaints. OBJECTIVE: VITAL SIGNS: Stable, afebrile. I's and O's 2670 in, 3975 out. Left nephrostomy 2325. Right nephrostomy tube 1650, no significant leakage per patient, no CVA tenderness. ABDOMEN: Soft, nontender, nondistended. Bilateral nephrostomy tube is in appropriate position. I did irrigate the right nephrostomy tube as the patient was concerned about asymmetric output. He continues to have hematuria per nephrostomy tube. The right has more hematuria component than the left. I did irrigate and flush the right nephrostomy tube with a small scant clot evacuated, irrigates without difficulty. There appears to be a small kink in the tubing which resecured. Patient reassured. LABORATORY DATA: White count 3.7, hemoglobin 9.2, platelets 60,000. Renal function stable, creatinine of 0.68. IMPRESSION AND PLAN: 1. Mr. Shaffer is a 71-year-old male with metastatic prostate cancer, status post transurethral resection of prostate, bilateral orchiectomy, radiation therapy in the [facility]. 2. Chemo refractory disease. Recently finished salvage chemo. 3. Admitted for recurrent Escherichia coli urosepsis. Sepsis has resolved. The patient is hemodynamically stable. 4. Pancytopenia, decreased platelets status post 2 units, transfusion of platelets, platelet count is improving. He continues to have hematuria; however , hemoglobin is stable. If decreased hemoglobin would recommend transfusion of blood products as needed. I discussed with patient regarding contraindicates of anticoagulation, aspirin, ibuprofen products as well. 5. Recheck CBC, if H\H, platelets, continues to increase, consideration for discharge tomorrow if cleared by Medical, Oncology Service. I do recommend close followup with Medical Oncology as he needs his CBC monitored. He has routine follow up with me early May. ROBERTO
--- NOTE | 2017-05-19 08:50 | PRG ---
DATE OF SERVICE: 05/19/2017 SUBJECTIVE: The patient seems to be doing reasonably well. He still has blood in his urine. PHYSICAL EXAMINATION: VITAL SIGNS: Temperature is 98.0, pulse 101, respiratory rate 20, O2 saturation 97%. HEENT: Unremarkable. NECK: No JVD. CHEST: Clear. CARDIAC: S1 and S2 regular. ABDOMEN: Soft. EXTREMITIES: No edema. ASSESSMENT: 1. Prostate cancer which is metastatic. 2. Urostomy tubes in both kidneys with bloody urine. 3. History of Escherichia coli sepsis. PLAN: The hydrocortisone can be changed to oral prednisone. Thiamine will be stopped. Vitamin C h as been stopped.
[2017-05-19] MEDS: Famotidine 20 MG TAB PO SCH ×2 (09:42→21:25)
[2017-05-19] MEDS: Folic Acid 1 MG TAB PO SCH (09:42)
[2017-05-19] MEDS: Potassium Chloride 20 MEQ TAB PO SCH ×2 (09:42→18:23)
[2017-05-19] MEDS: Multivit, Therapeutic 1 TAB PO SCH (09:42)
[2017-05-19] MEDS: Cyanocobalamin (Vitamin B-12) 1,000 MCG TAB PO SCH (09:43)
[2017-05-19] MEDS: Saccharomyces boulardii 250 MG CAP PO SCH (09:43)
[2017-05-19] MEDS: Docusate 100 MG CAP PO SCH ×2 (09:43→21:13)
[2017-05-19] MEDS: predniSONE 5 MG TAB PO SCH (09:46)
[2017-05-19 10:14] VITALS: BMI 21.2
[2017-05-19] MEDS: HYDROcodone/Acetaminophen 5/325 mg Tablet PO PRN ×2 (12:31→18:23)
[2017-05-19] MEDS: cefTRIAXone\\ROCEPHIN 2 GM in Sodium Chloride 0.9% 100 ML IVPB SCH (12:33)
[2017-05-19] MEDS ORDERED: Melatonin 3 MG TAB PO PRN (18:37)
[2017-05-19] MEDS: Temazepam 15 MG CAP PO SCH (21:13)
[2017-05-19] MEDS: Melatonin 3 MG TAB PO PRN (21:25)
[2017-05-20 04:54] LABS: Anion Gap 10 mmol/L (10-20); BUN (Urea Nitrogen) 6 mg/dL (8.4-25.7); Calc. Creatinine Clearance 90 mL/min (70-130); Calcium 7.4 mg/dL (7.8-10.44); Carbon Dioxide 26 mmol/L (23-31); Chloride 107 mmol/L (98-107); Estimated GFR-MDRD Greater than 90; Magnesium 1.2 mg/dL (1.6-2.6)
[2017-05-20 04:56] LABS: Band 12 % (5-11); Mean Platelet Volume 10.1 fL (7.4-10.4); Neutrophil 76 % (42-75); Red Blood Cell (RBC) Count 2.51 mill/uL (4.70-6.10); White Blood Cell (WBC) Count 5.8 thou/uL (4.8-10.8)
[2017-05-20 05:02] LABS: Phosphorus 1.1 mg/dL (2.3-4.7)
[2017-05-20] MEDS ORDERED: Potassium Chloride 40 MEQ in Sodium Chloride 0.9% 500 ML IVPB SCH (05:30)
[2017-05-20] MEDS ORDERED: Potassium Phosphate 30 MMOL in Sodium Chloride 0.9% 500 ML IVPB SCH (05:30)
[2017-05-20] MEDS: Dextrose 5 % And 0.9 % NaCl 1,000 ML IV SCH (05:30)
--- NOTE | 2017-05-20 07:22 | PRG ---
DATE OF SERVICE: 05/20/2017 SUBJECTIVE: The patient without complaints, resting comfortably. OBJECTIVE: VITAL SIGNS: Stable. GENERAL: I's and O's are 2570 in, 3970 out, left nephrostomy tube 2325, right 1650, degree of hematuria is improving, transparent light red, no clots, minimal leakage. ABDOMEN: Soft, nontender, nondistended. Bilateral perk tube is in appropriate position. EXTREMITIES: No cyanosis, clubbing or edema. PERTINENT LABORATORY DATA: White blood cell count 5.8, hemoglobin 8.2, platelet count has improved to 83,000. Potassium 2.5, which has been replaced. Creatinine is 0.6. IMPRESSION AND PLAN: Mr. Shaffer is a 71-year-old male with history of metastatic prostate cancer, status post transurethral resection of prostate, bilateral orchiectomy, radiation therapy in the [facility]. 1. Progression of metastatic disease, chemo refractory. 2. Immunocompromised state. 3. Current admission due to Escherichia coli urosepsis, resolved. Outpatient antibiotic regimen per infectious disease 4. Pancytopenia, multifactorial. The patient previously had no significant hematuria per nephrostomy tube, hematuria secondary to thrombocytopenia.. With improving platelet count, degree of hematuria continues to improve; however, persistent. His platelet count is on the rise, which is reassuring. He is hemodynamically stable. 5. Hypokalemia. Recommend the patient be on daily regimen of potassium replacement. We will recheck H\H this afternoon, if stable, from urologic perspective, the patient may be discharged home with bilateral PCNT. I did discuss the case with Dr. Ronquillo, who will see the patient in next week Tue/ or Tuesday for repeat CBC. Patient's case discussed with hospitalist, due to hypokalemia will need observation overnight for recheck potassium. Discharge when medically stable. Appointment with in chart. . Dr. Small from [facility] covering me this weekend if needed. ROBERTO
[2017-05-20] MEDS ORDERED: Potassium Chloride 20 MEQ TAB PO SCH (07:45)
[2017-05-20] MEDS ORDERED: Magnesium Sulfate 4 GM, Admixture Fee 1 EACH in Sodium Chloride 0.9% 250 ML 250 ML IVPB SCH (08:30)
[2017-05-20] MEDS: Cyanocobalamin (Vitamin B-12) 1,000 MCG TAB PO SCH (09:39)
[2017-05-20] MEDS: Docusate 100 MG CAP PO SCH ×2 (09:39→20:38)
[2017-05-20] MEDS: Magnesium Oxide 400 MG TAB PO SCH (09:40)
[2017-05-20] MEDS: Famotidine 20 MG TAB PO SCH ×2 (09:40→20:38)
[2017-05-20] MEDS: Multivit, Therapeutic 1 TAB PO SCH (09:40)
[2017-05-20] MEDS: Folic Acid 1 MG TAB PO SCH (09:40)
[2017-05-20] MEDS: predniSONE 5 MG TAB PO SCH (09:42)
[2017-05-20] MEDS: Saccharomyces boulardii 250 MG CAP PO SCH (09:47)
[2017-05-20] MEDS: HYDROcodone/Acetaminophen 5/325 mg Tablet PO PRN ×2 (09:47→18:38)
[2017-05-20 10:59] LABS: Hematocrit 26.3 % (42.0-52.0)
[2017-05-20] MEDS: cefTRIAXone\\ROCEPHIN 2 GM in Sodium Chloride 0.9% 100 ML IVPB SCH (12:35)
[2017-05-20] MEDS: K-Phos Neutral 250 MG TAB PO SCH ×3 (12:35→20:38)
--- NOTE | 2017-05-20 13:58 | PDOC.PN ---
- Subjective Encounter Start Date: 05/20/17 Encounter Start Time: 08:00 Patient seen and examined. No new complaints. No overnight events - Objective Resuscitation Status: Resuscitation Status DNR:Do Not Resuscitate MAR Reviewed: Yes Vital Signs & Weight: Vital Signs (12 hours) Temp Pulse Resp BP Pulse Ox 05/20/17 08:00 98.0 F 94 16 97 05/20/17 07:27 98.0 F 94 16 128/72 97 05/20/17 03:40 99.4 F 88 16 128/80 97 Weight Admit Weight 107 lb Weight 142 lb 11.2 oz Most Recent Monitor Data Heart Rate from ECG 81 NIBP 128/88 NIBP BP-Mean 107 Respiration from ECG 20 SpO2 99 I&O: 05/19/17 05/20/17 05/21/17 06:59 06:59 06:59 Intake Total 2570 360 Output Total 3975 2800 650 Balance -1405 -2800 -290 Result Diagrams: 05/20/17 10:45 05/20/17 04:04 Phys Exam - Physical Examination Constitutional: NAD Respiratory: no wheezing, no rhonchi Cardiovascular: RRR, no rub Gastrointestinal: soft, non-tender, positive bowel sounds Nephrostomy tube + Musculoskeletal: no edema Neurological: moves all 4 limbs Dx/Plan - Plan DVT proph w/SCDs IMPRESSION: 1. Severe sepsis with acute organ dysfunctions/septic shock secondary to E coli urinary tract infection with bacteremia 2. Urinary tract infection, complicated due to indwelling nephrostomy catheter. 3. Electrolyte abnormality - Hypokalemia, hypophosphatemia, hypomagnesemia. 4. Paroxysmal atrial fibrillation, not an anticoagulation candidate due to history of malignancy. 5. History of Clostridium difficile antigen positive. 6. Chronic macrocytic anemia - s/p PRBC 7. Lactic acidosis/metabolic acidosis secondary to sepsis. 8. Hyponatremia, probably secondary to dehydration/sepsis. 9. History of septic shock secondary to urinary tract infection with Citrobacter, Enterococcus and pseudomonas in January of this year. 10. History of bilateral hydronephrosis, status post bilateral percutaneous nephrostomy tubes. 11. Thrombocytopenia s/p transfusion 12. Metastatic prostate cancer, currently on chemotherapy. PLAN: * Replace electrolytes * Cont other meds as below * AM labs * Possible dc in AM if stable Review of Systems - Review of Systems Constitutional: negative: Fever, Chills, Sweats, Weakness, Malaise, Other Respiratory: negative: Cough, Dry, Shortness of Breath, Hemoptysis, SOB with Excertion, Pleuritic Pain, Sputum, Wheezing Cardiovascular: negative: Chest Pain, Palpitations, Orthopnea, Paroxysmal Noc. Dyspnea, Edema, Light Headedness, Other Gastrointestinal: negative: Nausea, Vomiting, Abdominal Pain, Diarrhea, Constipation, Melena, Hematochezia, Other - Medications/Allergies Allergies/Adverse Reactions: Allergies Allergy/AdvReac Type Severity Reaction Status Date / Time No Known Allergies Allergy Verified 04/20/17 08:40 Medications: Current Medications Acetaminophen (Tylenol) 650 mg PO Q4H PRN PRN Reason: Headache/Fever or Pain Last Admin: 05/14/17 22:14 Dose: 650 mg Hydrocodone Bitart/Acetaminophen ([place] 5/325) 1 tab PO Q6H PRN PRN Reason: Pain Last Admin: 05/20/17 09:47 Dose: 1 tab Hydrocodone Bitart/Acetaminophen ([place] 5/325) 2 tab PO Q6H PRN PRN Reason: Moderate to Severe Pain (6-10) Last Admin: 05/19/17 18:23 Dose: 2 tab Albuterol/Ipratropium (Duoneb) 3 ml NEB [id number] PRN PRN Reason: SOB &/or Wheezing Calcium Carbonate (Tums) 1,000 mg PO Q4H PRN PRN Reason: Heartburn or Indigestion Cyanocobalamin (Vitamin B-12) 1,000 mcg PO DAILY [facility] Last Admin: 05/20/17 09:39 Dose: 1,000 mcg Diltiazem HCl (Cardizem) 30 mg PO Q6HR PRN PRN Reason: HR >120 sustained Docusate Sodium (Colace) 100 mg PO BID [facility] Last Admin: 05/20/17 09:39 Dose: Not Given Famotidine (Pepcid) 20 mg PO BID [facility] Last Admin: 05/20/17 09:40 Dose: 20 mg Folic Acid (Folvite) 1 mg PO DAILY [facility] Last Admin: 05/20/17 09:40 Dose: 1 mg Guaifenesin (Robitussin Sf) 200 mg PO Q4H PRN PRN Reason: Cough Hydralazine HCl (Apresoline) 5 mg SLOW IVP Q4H PRN PRN Reason: SBP Greater Than 180 Ceftriaxone Sodium 2 gm/ (Sodium Chloride) 100 mls @ 200 mls/hr IVPB Q24HR [facility] Last Admin: 05/20/17 12:35 Dose: 100 mls Labetalol HCl (Normodyne) 10 mg SLOW IVP Q4H PRN PRN Reason: Systolic BP > 180 Loratadine (Claritin) 10 mg PO DAILYPRN PRN PRN Reason: Sinus Symptoms Magnesium Oxide (Magnesium Oxide) 400 mg PO DAILY [facility] Last Admin: 05/20/17 09:40 Dose: 400 mg Melatonin (Melatonin) 3 mg PO HSPRN PRN PRN Reason: Insomnia Last Admin: 05/19/17 21:25 Dose: 3 mg Melatonin (Melatonin) 3 mg PO HS PRN PRN Reason: Insomnia Mineral Oil/White Petrolatum (Eucerin Cream) 0 gm TOP BIDPRN PRN PRN Reason: Dry Skin Multivitamins (Theragran) 1 tab PO DAILY [facility] Last Admin: 05/20/17 09:40 Dose: 1 tab Nitroglycerin (Nitrostat) 0.4 mg PO Q5MIN PRN PRN Reason: Chest Pain Ondansetron HCl (Zofran Odt) 4 mg PO Q6H PRN PRN Reason: Nausea/Vomiting Ondansetron HCl (Zofran) 4 mg IVP Q6H PRN PRN Reason: Nausea/Vomiting Phosphorus (Kphos Neutral) 500 mg PO QID-WM [facility] Last Admin: 05/20/17 12:35 Dose: 500 mg Polyethylene Glycol (Miralax) 17 gm PO DAILY PRN PRN Reason: Constipation Potassium Chloride (K-Dur) 40 meq PO DAILY [facility] Prednisone (Prednisone) 15 mg PO DAILY [facility] Last Admin: 05/20/17 09:42 Dose: 15 mg Saccharomyces Boulardii (Florastor) 250 mg PO 1100 [facility] Last Admin: 05/20/17 09:47 Dose: 250 mg Senna (Senokot) 2 tab PO HSPRN PRN PRN Reason: Constipation Sodium Chloride (Flush - Normal Saline) 10 ml IVF PRN PRN PRN Reason: Saline Flush Last Admin: 05/15/17 20:01 Dose: 10 ml Temazepam (Restoril) 15 mg PO HS [facility] Last Admin: 05/19/17 21:13 Dose: Not Given
[2017-05-20] MEDS: Temazepam 15 MG CAP PO SCH (20:38)
[2017-05-21 05:55] LABS: Anion Gap 12 mmol/L (10-20); BUN (Urea Nitrogen) 5 mg/dL (8.4-25.7); BUN/Creatinine Ratio 6.85; Calc. Creatinine Clearance 87 mL/min (70-130); Calcium 7.5 mg/dL (7.8-10.44); Carbon Dioxide 27 mmol/L (23-31); Chloride 103 mmol/L (98-107); Estimated GFR-MDRD Greater than 90; Magnesium 1.9 mg/dL (1.6-2.6); Phosphorus 3.1 mg/dL (2.3-4.7)
[2017-05-21] MEDS ORDERED: Potassium Chloride 20 MEQ TAB PO SCH (09:00)
[2017-05-21] MEDS ORDERED: DILTIAZEM HCL 120 MG PO SCH (09:00)
[2017-05-21] MEDS: HYDROcodone/Acetaminophen 5/325 mg Tablet PO PRN (09:06)
[2017-05-21] MEDS: Magnesium Oxide 400 MG TAB PO SCH (09:08)
[2017-05-21] MEDS: Folic Acid 1 MG TAB PO SCH (09:08)
[2017-05-21] MEDS: Multivit, Therapeutic 1 TAB PO SCH (09:08)
[2017-05-21] MEDS: Famotidine 20 MG TAB PO SCH (09:08)
[2017-05-21] MEDS: predniSONE 5 MG TAB PO SCH (09:08)
[2017-05-21] MEDS: Cyanocobalamin (Vitamin B-12) 1,000 MCG TAB PO SCH (09:09)
[2017-05-21] MEDS: K-Phos Neutral 250 MG TAB PO SCH ×2 (09:09→15:04)
[2017-05-21] MEDS: Docusate 100 MG CAP PO SCH (09:09)
--- NOTE | 2017-05-21 09:10 | DIS ---
DATE OF ADMISSION: 05/14/2017 DATE OF DISCHARGE: 05/21/2017 DISCHARGE DISPOSITION: Home. FOLLOWUP: Follow up with primary care physician, Dr. Ronquillo in 1 week. Please note that patient does not follow any other primary care physician. ALLERGIES: No known drug allergies. CODE STATUS: DO NOT RESUSCITATE. The patient was seen and examined on the day of discharge. Denies any new complaints. Patient is a febrile with blood pressure of 131/90. DISCHARGE MEDICATIONS: 1. Amoxicillin 500 mg every 8 hourly for next week. 2. Ciprofloxacin 500 mg as directed, during nephrostomy change. 3. Diltiazem 120 mg daily. 4. Waldron as needed. 5. Multivitamin 1 tablet daily. 6. Potassium chloride 20 mEq daily for the next 7 days. 7. Prednisone 15 mg daily for next 4 days, then 10 mg daily for the next 4 days, then resume home d ose of 5 mg daily. 8. Repeat labs in less than 1 week is recommended. Primary care physician is advised to follow. INPATIENT CONSULTANTS: Urology, Dr. Hardy; Pulmonary, Dr. Rose; Oncology, Dr. Ronquillo. BRIEF HOSPITAL COURSE: Patient is a 71-year-old male with prostate cancer, currently on chemotherap y who presented to the hospital with fever along with nausea. His maximum temperature at home was 1 01. He was admitted in 01/2017 for UTI with septic shock. Please refer to the history and physical dated 05/14/2017 for further details. The patient was admitted to the Intensive Care Unit with a diagnosis of severe sepsis with acute org an dysfunction/septic shock secondary to UTI. His urine culture and blood culture both were positiv e for E. coli. Stool for C. difficile was negative. He was placed on pressors with broad spectrum antibiotics. He was then transferred to the medical floor. He underwent nephrostomy tube change. He was also seen by Infectious Disease, Dr. Sanchez. He was started on stress dose steroid that has b een gradually tapered. He also had some electrolyte imbalance including potassium of 2.6, phosphoru s of 1.1, magnesium of 1.2 that has been replaced. He will follow up with Dr. Ronquillo next week. Repeat electrolyte in a week is recommended. Primary care physician is advised to follow. He also received 2 units of blood transfusion and 1 unit of platelets during this hospital stay. FINAL DIAGNOSES: 1. Severe sepsis with acute organ dysfunction/septic shock secondary to Escherichia coli urinary tr act infection with Escherichia coli bacteremia. 2. Complicated urinary tract infection. Patient has 2 indwelling nephrostomy catheters. 3. Metastatic prostate cancer, currently on chemotherapy. 4. Paroxysmal atrial fibrillation, not a candidate for anticoagulation. 5. History of Clostridium difficile antigen positive in the past. Clostridium difficile antigen an d toxin were both negative this admission. 6. Chronic microcytic anemia. Patient received 2 units of packed red blood cells this hospital sta y. 7. Metabolic acidosis/lactic acidosis on admission, resolved. 8. Hyponatremia. 9. Multiple electrolyte imbalance including hypokalemia. 10. Hypophosphatemia and hypomagnesemia, replaced. 11. History of septic shock secondary to urinary tract infection with Citrobacter, Enterococcus, an d Pseudomonas in 01/2017. 12. History of bilateral hydronephrosis, status post bilateral percutaneous nephrostomy tubes. 13. Thrombocytopenia, status post transfusion this admission. 14. Moderate protein calorie malnutrition. 15. DO NOT RESUSCITATE. 16. Elevated inflammatory markers. 17. Plan of care was discussed with the patient, he stated understanding. Total time coordinating the discharge of this patient was 33 minutes.
[2017-05-21] MEDS: Saccharomyces boulardii 250 MG CAP PO SCH (11:36)
[2017-05-21] MEDS: cefTRIAXone\\ROCEPHIN 2 GM in Sodium Chloride 0.9% 100 ML IVPB SCH (11:36)
[2017-05-21 11:59] VITALS: BP 138/69; TEMP 98.3
--- NOTE | 2017-05-21 14:28 | PRG ---
DATE OF SERVICE: 05/21/2017 SUBJECTIVE: The patient is well known to me for metastatic prostate cancer. He has been on chemoth erapy. He was admitted with E. coli urosepsis. Today, he is feeling better. He does not have any pain. OBJECTIVE: VITAL SIGNS: Temperature 98.3, pulse 127, blood pressure 138/69. Chest, heart and abdomen were unremarkable except for tachycardia. LABORATORY DATA: WBC today is 5800, which is improving compared to 3400 on 05/18 and 3700 on 05/19. Hemoglobin is 8.5 and platelet count is 83,000, which again shows progressive improvement compared to 60,000 on 05/19 and 53,000 on 05/18. I have asked patient to keep his previous appointment to yoselin hernandez in next week Tuesday. He does not need to be seen on Tuesday. If he has any problem, he ruth l get in touch with me.
== END 2017-05-21 15:17 | disposition home or self-care (01) | DRG 698 ==
LOC: ERS 09:41 → CCU 20:25 → ONC 05-17 09:34
PROVIDERS: ADMIT Internal Medicine; ATTEND Internal Medicine
PROC: 0T25X0Z Change Drainage Device in Kidney, External Approach (ICD-10-PCS; principal; 2017-05-16)
PROC: 0T25X0Z Change Drainage Device in Kidney, External Approach (ICD-10-PCS; 2017-05-16)
PROC: BT13YZZ Fluoroscopy of Bilateral Kidneys using Other Contrast (ICD-10-PCS; 2017-05-16)
PROC: 30233N1 Transfusion of Nonautologous Red Blood Cells into Peripheral Vein, Percutaneous Approach (ICD-10-PCS; 2017-05-16)
PROC: 30233R1 Transfusion of Nonautologous Platelets into Peripheral Vein, Percutaneous Approach (ICD-10-PCS; 2017-05-16)
DX: N99.521 Infection of incontinent external stoma of urinary tract (principal); A41.51 Sepsis due to Escherichia coli [E. coli]; R65.21 Severe sepsis with septic shock; D61.818 Other pancytopenia; E87.2 Acidosis; C79.51 Secondary malignant neoplasm of bone; E83.42 Hypomagnesemia; D69.6 Thrombocytopenia, unspecified; E87.1 Hypo-osmolality and hyponatremia; N39.0 Urinary tract infection, site not specified; Z66 Do not resuscitate; I48.0 Paroxysmal atrial fibrillation; E86.0 Dehydration; C61 Malignant neoplasm of prostate; Y84.6 Urinary catheterization as the cause of abnormal reaction of the patient, or of later complication, without mention of misadventure at the time of the procedure; Y73.3 Surgical instruments, materials and gastroenterology and urology devices (including sutures) associated with adverse incidents; D53.9 Nutritional anemia, unspecified; E87.6 Hypokalemia; E83.39 Other disorders of phosphorus metabolism; N13.9 Obstructive and reflux uropathy, unspecified; Z87.891 Personal history of nicotine dependence
CPT/HCPCS: 36415; 36430; 36556; 50431; 50435; 71010; 71020; 74177; 80048; 80053; 80069; 80202; 81003; 81015; 82533; 82553; 83605; 83690; 83735; 83880; 83930; 84100; 84484; 85007; 85025; 85027; 85610; 85730; 86140; 86850; 86900; 86901; 87040; 87077; 87086; 87149; 87186; 87324; 87449; 93005; 94760; 96361; 96365; 96366; 96367; 96368; 96375; C1729; G8978-GP-CJ; G8979-GP-CJ; G8980-GP-CJ; J0696; J1644; J1720; J2185; J2405; J3370; J3411; J3475; J3480; J7042; J7050; P9016; P9035

== ENCOUNTER 2017-05-30 09:42 | Outpatient (CLI) | payer OTHER ==
--- NOTE | 2017-05-30 14:37 | NM ---
WHOLE BODY BONE SCAN: Date: 05/30/17 HISTORY: Malignant neoplasm of prostate. RADIOPHARMACEUTICAL: 33 mCi technetium-99m MDP injected intravenously. COMPARISON: 09/16/16. FINDINGS: There are multiple foci of abnormally increased tracer localization in the skeleton consistent with metastatic disease. The calvarial activity is again seen with a new small focus in the right orbital wall. There has been increase in area of uptake in the strenum, right proximal femur, mid thoracic spine, and right lateral ribs since the last study. New foci of increased uptake is seen in the upper thora cic spine, left side of the manubrium sterna, right 8th and left 10th ribs. A new focus of uptake is also seen in the right iliac crest and the cervical spine. There is tracer excretion by the kidneys. Bilateral nephrostomy tubes are present. IMPRESSION: Interval worsening of osseous metastatic disease since 05/30/17. POS: [facility]
== END 2017-05-30 09:43 | disposition home or self-care (01) ==
LOC: NM 09:42
PROVIDERS: ATTEND Internal Medicine Medical Oncology
DX: C79.51 Secondary malignant neoplasm of bone (principal); C61 Malignant neoplasm of prostate
CPT/HCPCS: 78306; A9503

== ENCOUNTER 2017-06-07 08:10 | Day surgery (SDC) | payer OTHER ==
[~2017-06-07 08:10] MED LIST changes: +FLU VACC TS2017-18 (>65YR) 0.5 ML SYRINGE IM ONE; -ISOVUE-370 76%-LOCM 1 ML ONE
[2017-06-07 08:56] VITALS: BP 106/73; TEMP 97.6
--- NOTE | 2017-06-07 10:47 | SPC ---
BILATERAL PERCUTANEOUS NEPHROSTOMY TUBE REPLACEMENT: Date: 06-07-17 History: Malignant neoplasm prostate with bilateral ureteral obstructions. Fluoroscopy: Total fluoroscopy time is 2.6 [place] [address] mGy*cm\S\2. Technique: After informed consent was obtained, the bilateral nephrostomy tubes and surrounding area s were prepped and draped in the usual sterile fashion. The right nephrostomy tube was punctured with an 18 gauge needle and contrast was injected for nephr ostogram which demonstrates defects in the region of the catheter and UVJ with tortuosity and mild d ilatation of the right ureter. The nephrostomy tube was then cut and exchanged over a .035 inch [place] on guidewire for a new 10 Ethiopian percutaneous nephrostomy tube. The original nephrostomy tube was co iled within a upper pole infundibulum. As a result, the catheter was repositioned with the pigtail p ortion within the right renal pelvis. Contrast injection was performed indicating good positioning o f the nephrostomy tube. Catheter was sutured in place utilizing 2-0 ethilon suture material sutured in place to gravity drainage. The left nephrostomy tube was then punctured with an 18 gauge needle and nephrostogram was performed . Catheter was cut and exchanged over a .035 inch [place] guidewire for a new 12 Ethiopian nephrostomy t ube. The distal portion of the nephrostomy tube was positioned in the renal pelvis. No significant h ydronephrosis was present but there is mild dilation of the left ureter. Catheter was flushed and pl aced to gravity drainage. Catheter was secured in place utilizing 2-0 ethilon suture material. Dress ings were placed at each nephrostomy tube site. Patient tolerated the procedure well and without immediate complication. IMPRESSION: Technically successful bilateral nephrostomy tube exchanges. POS: [facility]
[2017-06-07] MEDS ORDERED: Iopamidol 370 76% 50 ML VIAL FS ONE (16:13)
== END 2017-06-07 10:10 | disposition home or self-care (01) ==
LOC: SPEC 08:10
PROVIDERS: ATTEND Urology
PROC: 0T9330Z Drainage of Right Kidney Pelvis with Drainage Device, Percutaneous Approach (ICD-10-PCS; principal; 2017-06-07)
PROC: 0T9430Z Drainage of Left Kidney Pelvis with Drainage Device, Percutaneous Approach (ICD-10-PCS; principal; 2017-06-07)
DX: N13.1 Hydronephrosis with ureteral stricture, not elsewhere classified (principal); C79.82 Secondary malignant neoplasm of genital organs; I48.0 Paroxysmal atrial fibrillation; D64.9 Anemia, unspecified; Z79.899 Other long term (current) drug therapy; Z87.440 Personal history of urinary (tract) infections; Z87.891 Personal history of nicotine dependence; Z66 Do not resuscitate
CPT/HCPCS: 50431; 50435; C1729

== ENCOUNTER 2017-07-02 08:04 | Inpatient (IN) | payer OTHER ==
[2017-07-02 08:32] LABS: #Basophils 0.1 thou/uL (0.0-0.2); #Lymphocytes 0.5 thou/uL (1.20-3.40); #Monocytes 0.1 thou/uL (0.11-0.59); #Neutrophils 9.5 thou/uL (1.40-6.50); %Basophils 0.5 % (0.0-1.0); %Eosinophils 0.4 % (0.0-10.0); %Lymphocytes 5.3 % (21.0-51.0); %Monocytes 0.8 % (0.0-10.0); Hematocrit 28.4 % (42.0-52.0); Red Blood Cell (RBC) Count 3.11 mill/uL (4.70-6.10); White Blood Cell (WBC) Count 10.2 thou/uL (4.8-10.8)
[2017-07-02 08:48] LABS: Bilirubin Negative (Negative); Blood, Urine Small (Negative); Glucose, Urine (Dipstick) Negative (Negative); Ketone, Urine Negative (Negative); Nitrite Positive (Negative); Protein, Urine (Dipstick) 100 mg/dL (Neg-Trace); Urobilinogen 0.2 mg/dL (0.2-1.0)
[2017-07-02 08:50] LABS: Bacteria/HPF 4+ HPF (None Seen); Hyaline Casts/LPF 7-10 HYALINE CAST LPF (0-3 Hyaline)
[2017-07-02 08:52] LABS: ALT (SGPT) 22 U/L (8-55); AST (SGOT) 23 U/L (5-34); Alkaline Phosphatase 116 U/L (40-150); Anion Gap 20 mmol/L (10-20); BUN (Urea Nitrogen) 25 mg/dL (8.4-25.7); Bilirubin, Total 0.3 mg/dL (0.2-1.2); Calc. Creatinine Clearance 0 mL/min (70-130); Calcium 8.2 mg/dL (7.8-10.44); Carbon Dioxide 19 mmol/L (23-31); Chloride 97 mmol/L (98-107); Estimated GFR-MDRD 63; Globulin 3.5 g/dL (2.4-3.5); Protein, Total 6.7 g/dL (5.8-8.1)
[2017-07-02 08:59] LABS: Troponin I 0.032 ng/mL (< 0.028)
[2017-07-02] MEDS ORDERED: SODIUM CHLORIDE 0.9% IVPB SCH (09:00)
[2017-07-02] MEDS ORDERED: GENTAMICIN SULFATE IVPB SCH (09:00)
[2017-07-02] MEDS ORDERED: cefTRIAXone\\ROCEPHIN 2 GM in Sodium Chloride 0.9% 100 ML IVPB SCH (09:00)
[2017-07-02 09:02] LABS: Yeast-All Forms 1+ HPF (None Seen)
--- NOTE | 2017-07-02 09:11 | RAD ---
SINGLE VIEW OF THE CHEST: COMPARISON: 05/14/17. HISTORY: Atrial fibrillation with shortness of breath. FINDINGS: A single view of the chest shows a normal-size cardiomediastinal silhouette with atherosclerotic bushra cifications in the aorta. There is no evidence of consolidation, mass, or pleural effusion. Increa sed interstitial lung markings are present. IMPRESSION: No evidence of acute cardiopulmonary disease. POS: [facility]
[2017-07-02] MEDS ORDERED: Bisacodyl 5 MG TAB PO PRN (10:37)
[2017-07-02] MEDS ORDERED: Ondansetron HCl/PF 4 MG/2 ML Vial IVP PRN (10:37)
[2017-07-02] MEDS ORDERED: Mag-Al 1200 mg/1200 mg/30 ML UDCUP PO PRN (10:37)
[2017-07-02] MEDS ORDERED: Calcium Carbonate 500 MG ChewTAB PO PRN (10:37)
[2017-07-02] MEDS ORDERED: Senokot 8.6 MG TAB PO PRN (10:37)
[2017-07-02] MEDS ORDERED: Lorazepam 1 MG TAB PO PRN (10:39)
[2017-07-02] MEDS ORDERED: traMADol HCl 50 MG TAB PO PRN (10:39)
[2017-07-02] MEDS ORDERED: hydrALAZINE 20 MG/ML VIAL SLOW IVP PRN (10:39)
[2017-07-02] MEDS ORDERED: Nitroglycerin 0.4 MG TAB (25 Tab Bottle) SL PRN (10:39)
[2017-07-02] MEDS ORDERED: Loratadine 10 MG TAB PO PRN (10:39)
[2017-07-02] MEDS ORDERED: cloNIDine 0.1 MG TAB PO PRN (10:39)
[2017-07-02] MEDS ORDERED: Benzonatate 100 MG CAP PO PRN (10:39)
[2017-07-02] MEDS ORDERED: Diabetic Tussin 200 MG/10 ML UDCUP PO PRN (10:39)
[2017-07-02] MEDS ORDERED: Fluconazole 100 MG TAB PO SCH ×2 (10:45→13:00)
[2017-07-02] MEDS ORDERED: DILTIAZEM HCL 120 MG PO SCH (11:15)
--- NOTE | 2017-07-02 11:53 | HP ---
DATE OF ADMISSION: 07/02/2017 PRIMARY CARE PHYSICIAN: None. The patient follows up with Oncology, Dr. Ronquillo, as PCP for now. CHIEF COMPLAINT: Generalized weakness and poor appetite. HISTORY OF PRESENT ILLNESS: Mr. Shaffer is a very pleasant 72-year-old Citizen Of [place] male with past medica l history of metastatic prostate cancer, on chemotherapy, status post bilateral nephrostomy tubes pl acement for hydronephrosis as well as history of paroxysmal atrial fibrillation, who presented to [facility] emergency room with the above-mentioned complaints. History is mainly obtained by the patient him self and supplemented by his family present in the room. Electronic medical records have been revie wed extensively and case has been discussed with the admitting ER physician. The patient was last admitted to our facility about a month ago in April. At that time, he was treated for severe sepsis secondary to Escherichia coli. He was positive for E. coli UTI as well as bacteremia. It was sensitive to amoxicillin, which he has received for 2 weeks post-discharge. The patient reports that he has been feeling fine up until the last 2-3 days. He has been feeling g enerally weak and has noticed poor appetite. He has not noted any fever or chills. He is not nause ous or throwing up. He has not noticed any pain in his abdomen or has any diarrhea. No chest pain, shortness of breath, cough either. He has not noted any changes in the color of his urine in the b ag or has noticed any hematuria. Because the last time he waited before coming to the hospital and developed severe infection, the family decided to bring him early on for workup. The patient report s that he has currently stopped the chemotherapy 3 weeks ago, as he was feeling very weak and felt t hat his immune system cannot go on any longer. He is currently on hospice, but they are more or les s providing as needed basis care including the wound care for his nephrostomy tube. He does not req uire much of the pain medications except for [place] here and there. Upon presentation to the emergency room, his blood pressure was 116/91, but he was tachycardic to 11 3 with atrial fibrillation on the EKG. He was saturating 100% on room air and is afebrile. Further workup revealed neutrophilia with normal WBC count, but urinalysis as expected has +1 yeast, +4 jennifer teria, multiple WBCs, and large leukocyte esterase. His lactic acid is elevated to 3, and he is mil dly acidotic as well. Based on these findings, a presumptive diagnosis of sepsis secondary to UTI i s being made. He has received vancomycin, gentamicin, and Rocephin in the ER and is now being admit andrés for sepsis. At the time of my examination in the emergency room, he looks quite nontoxic and is comfortable. PAST MEDICAL HISTORY: 1. Recent severe sepsis with organ dysfunction and septic shock secondary to E. coli UTI and E. col i bacteremia in 04/2017. 2. History of bilateral hydronephrosis, status post indwelling nephrostomy tubes. 3. History of metastatic prostate cancer. 4. Paroxysmal atrial fibrillation, not on anticoagulation due to hematuria. 5. History of Clostridium difficile. 6. Chronic microcytic anemia. 7. Moderate protein-calorie malnutrition. PAST SURGICAL HISTORY: Bilateral nephrostomy tube placement. ALLERGIES: No known medication allergies. MEDICATIONS: Cardizem 5 mg once a day. The patient does not remember all of his home medications, but he was discharged in April 2017 on the following. Cardizem 120 mg daily, [place] as needed, m ultivitamin as needed. SOCIAL HISTORY: The patient is and lives with his family. No history of drug, tobacco, or alcohol abuse. FAMILY HISTORY: Negative for any inheritable diseases. He denies any coronary artery disease, stro ke, or cancers running in his family. REVIEW OF SYSTEMS: The following complete review of systems was negative, unless otherwise mentione d in the HPI or below: Constitutional: Weight loss or gain, ability to conduct usual activities. Skin: Rash, itching. Eyes: Double vision, pain. ENT/Mouth: Nose bleeding, neck stiffness, pain, tenderness. Cardiovascular: Palpitations, dyspnea on exertion, orthopnea. Respiratory: Shortnes s of breath, wheezing, cough, hemoptysis, fever or night sweats. Gastrointestinal: Poor appetite, abdominal pain, heartburn, nausea, vomiting, constipation, or diarrhea. Genitourinary: Urgency, fr equency, dysuria, nocturia. Musculoskeletal: Pain, swelling. Neurologic/Psychiatric: Anxiety, de pression. Allergy/Immunologic: Skin rash, bleeding tendency. It is negative except for those ment ioned in the history and physical. LABORATORY EXAMINATION: CBC shows WBCs of 10.2, platelet count of 158. He has 93% neutrophils. He moglobin is 8.8 with hematocrit of 28.4. Serum chemistries show sodium of 132, chloride 97, bicarbo belkis of 19, blood sugar of 138. Lactic acid is elevated to 3.0. His renal function is within mary l limits. His estimated GFR of 63. Cardiac enzymes in the indeterminate range at 0.032. BNP is 10 4. Urinalysis as above. It has small blood and 11-20 rbcs. Chest x-ray, by my review, has no evid ence to suggest any infiltrates. No pulmonary edema or pleural effusion noticed. A 12-lead EKG, by my review, shows atrial fibrillation with ventricular rate of 112 beats per minute. Nonspecific ST and T-wave changes. PHYSICAL EXAMINATION: VITAL SIGNS: Most recent vital signs include temperature 98.4, pulse of 108, blood pressure 128/83, respirations 20, saturating 98% on room air. GENERAL EXAMINATION: In no acute distress, lying comfortably in bed, awake, alert, oriented x3. Ap pears well nourished and nontoxic. HEENT EXAMINATION: Mucous membranes slightly dry. No oropharyngeal exudate or erythema. Head is n ormocephalic, atraumatic. Pupils are equal and reactive to light and accommodation. Extraocular mo vements intact. NECK: Supple without any lymphadenopathy, JVD, or bruit. CHEST: Clear to auscultation without any wheezing, rales, or rhonchi. CARDIOVASCULAR: Regular rate and rhythm is irregular and tachycardic. No murmurs appreciable. ABDOMEN: Soft, nontender, nondistended. No guarding, rebound, or rigidity. Percutaneous nephrosto my tubes draining bilaterally in the leg bags, which appears to be cloudy urine. No blood noticed. Foul smell noticed. EXTREMITIES: Free of any cyanosis, clubbing, or edema. NEUROLOGICAL EXAMINATION: Nonfocal. SKIN: Free of any rashes or bruises. Warm and dry to touch. PSYCHIATRIC: Normal affect. VASCULAR: A +2 pedal pulses felt bilaterally. IMPRESSION AND PLAN: 1. Sepsis, likely secondary to recurrent urinary tract infection. The patient is immunocompromised , and for this reason, we will start him on broad-spectrum IV antibiotics. His urine culture has be en reviewed and he had Escherichia coli, which was fairly sensitive except for levofloxacin and Bact rim. We will also add Diflucan given urinary yeast. He will be continued on gentle IV fluid hydrat ion, and we will consult Urology as well as Infectious Disease Services for further recommendations. It is difficult to tell whether this is a colonization or a true infection. However, given the ad vanced prostate cancer and presence of nephrostomy tube and immunocompromised status, we will treat it aggressively for now. Fortunately, he is hemodynamically stable except for his rapid ventricular rate with known history of atrial fibrillation. 2. Paroxysmal atrial fibrillation with rapid ventricular response. The patient is not a candidate for anticoagulation. He still appears to have microscopic hematuria. At this time, he will be rk andrés conservatively with rate control. We will continue with Cardizem and add digoxin if the heart r ate does not respond. Patient follows up with Dr. Monson, as an outpatient for Cardiology. 3. Hyponatremia, likely secondary to dehydration with hypochloremia. As above, we will provide him with hydration with normal saline. 4. Lactic acidosis/metabolic acidosis secondary to sepsis. 5. History of bilateral hydronephrosis. He is status post bilateral percutaneous nephrostomy tubes . We will consult Urology for recommendations regarding the treatment for possible urinary tract in fection. 6. History of metastatic prostate cancer. The patient will continue to follow up with Dr. Ronquillo as an outpatient. Currently, he has halted his chemotherapy and is on hospice. We will consult pa lliative care team as needed while in the hospital. 7. Code status: The patient has out of hospital DNR. 8. Deep vein thrombosis and GI prophylaxis with sequential compression devices and proton pump inhi bitors. DISPOSITION: Mr. Shaffer is currently being admitted to telemetry unit for sepsis secondary to urinar y tract infection and atrial fibrillation with RVR. Further management will depend upon his clinica l course. Estimated length of stay is at least 2-3 midnight at this time.
[2017-07-02] MEDS: Sodium Chloride 0.9% 1,000 ML IV SCH (15:18)
--- NOTE | 2017-07-02 17:37 | CON ---
ER CONSULTATION NOTE DATE OF CONSULTATION: 07/02/2017 REASON FOR CONSULTATION: Weakness. HISTORY OF PRESENT ILLNESS: Mr. Shaffer is a 72-year-old male with advanced metastatic prostate cancer, hormone chemo refractory with bilateral hydronephrosis due to gross trigonal local invasion of his prostate cancer. The patient has previously been admitted for the urosepsis where he presents with significant leukocytosis, high fever. This usually has occurred while patient was undergoing chemotherapy, immunocompromised with neutropenic fever. The patient was followed by Dr. Ronquillo, Medical Oncology. He has had hospice care in which routine check with hospice service every other day at home. He desires to continue home hospice care upon conversation today. The patient has been seen by medical service, Dr. Oliveira. I did speak with her regarding patient's clinical course. It is unclear why the patient is being admitted. He does not have clinical picture of sepsis. He is afebrile with no significant leukocytosis. Urinalysis has been obtained by the emergency room via nephrostomy tube as he does not void per urethra significantly enough due to trigonal invasion. As expected, there is urinalysis suspicious for urinary tract infection component; however, it appears to be a colonized component due to bilateral nephrostomy tube as he is asymptomatic. The patient states that he had grossly poor appetite for the last few days, and therefore has had weakness. Due to weakness, he presents to the emergency room. PAST MEDICAL HISTORY: BPH, prostate cancer, David score 5+4, history of atrial fibrillation, history of recurrent intermittent hematuria in the past, on anticoagulation. PAST SURGICAL HISTORY: 1. Transurethral resection of prostate in the [facility]. 2. Bilateral orchiectomy in the [facility] 2012. 3. Radiation therapy in the [facility] 2012. 4. Prior cystoscopy demonstrated gross trigonal invasion with bilateral ureteral obstruction. 5. The patient has undergone interval nephrostomy tube exchanges; last changed 06/07/2017. 6. Bilateral 10-Ugandan catheters. SOCIAL HISTORY: He is a former smoker, quit. He lives with his family with home hospice. HOME MEDICATIONS: Include [place]. ALLERGIES: No known drug allergies. PHYSICAL EXAMINATION: GENERAL: Currently in the emergency room, he appears to be alert and oriented. He has lost significant weight from our last conversation in exam. VITAL SIGNS: He is afebrile 98.7. Blood pressure 120/80, pulse is 100 and respiration 18. Pain rated as 0. He has been provided broad-spectrum antibiotics including gentamicin, Rocephin and vancomycin in the ER. 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 He appears to have significant loss or weight since I last saw him. HEART: Regular rate. LUNGS: Clear. Decreased inspiratory effort. ABDOMEN: Soft. GENITOURINARY: Demonstrates bilateral NT tubes draining concentrated yellow urine with no significant hematuria, bilateral orchiectomy empty scrotum exam. Digital rectal exam demonstrates grossly nodular abnormal VALERIE consistent with metastatic locally invasive prostate cancer. EXTREMITIES: No cyanosis, clubbing or edema. PERTINENT LABORATORY DATA: White count 10, hemoglobin 8.8, which is his baseline. His hemoglobin 2 months ago was 8.5, platelet 158, 93 segs. BUN 25, creatinine stable at 1.1. Urinalysis is yellow, positive nitrites, 11-20 rbc's , 7-10 epithelials, greater than 50 wbc's. IMPRESSION/PLAN: Mr. Shaffer is a 72-year-old male with; 1. Advanced metastatic prostate cancer, hormone chemo refractory with trigonal invasion. Prognosis poor/dismal. 2. Bilateral ureteral obstruction due to local invasion of trigone, The patient has transitioned to hospice palliative care, presented to the ER for weakness. I did discuss with the patient in lengthy detail regarding indications for admission. He does not appear to have grossly septic parameters. I informed the patient that generalized weakness is likely a component of his poor appetite for the last few weeks, and progressive advanced prostate cancer. I spoke with Medical Service, if patient is medically cleared , patient may be discharged back to home with hospice care. ROBERTO
--- NOTE | 2017-07-02 17:41 | CON ---
DATE OF CONSULTATION: 07/02/2017 REASON FOR CONSULTATION: Weakness and possible infection. HISTORY OF PRESENT ILLNESS: A 72-year-old known to me from prior admission when he presented with h istory of metastatic prostate cancer with TURP, bilateral orchiectomy in [facility] and radiation t herapy and now with evidence of diffuse metastatic disease, invasion of rectum and trigonal area wit h bilateral hydronephrosis, which led to placement of bilateral nephrostomy tubes. The patient has been given chemotherapy as well. I initially saw him in January with neutropenic fever and eventually transitioned to oral antimicrobial therapy and discharged and then readmitted in April with E. c krista bacteremia resistance only to quinolones and Bactrim. Patient was given IV Rocephin and transit ioned to amoxicillin for discharge planning and now he presented to because of fairly rapid onset of weakness and anorexia. No fever or chills. No respiratory symptoms. No abdominal pain. Still escalante s bilateral nephrostomy tubes. No diarrhea, no bleeding. Patient reportedly has been admitted to [facility]. Initial findings showed a BP of 116/91, tachycardia at 113 and O2 sat 100%. His initi al labs with a white cell count of 10.2 with 90% neutrophils, platelets 158 with hemoglobin 8.8. So dium 132, creatinine 1.15 which is a little bit higher than his baseline. Liver profile normal. Tr oponin 0.032 and albumin 3.2. Urinalysis greater than 50 wbc's. Microbiology thus far with Marisol albicans in urine sample from about a month ago. Current admission include two sets of blood cultu res and culture pending at this time. Mr. Shaffer has improved. He is awake and alert. Denies any h eadaches, visual symptoms, sore throat, odynophagia or dysphagia. No cough or sputum production. N o chest pain. No back pain, no abdominal pain or diarrhea. Voiding without difficulty. No joint s ymptoms. He is feeling better than when he was admitted. PAST MEDICAL HISTORY: Metastatic prostate cancer, bone and local invasion, urinary obstruction with bilateral nephrostomy tubes, recent admission to hospice care and atrial fibrillation on and off an ticoagulation. PAST SURGICAL HISTORY: TURP in [facility] orchiectomy and radiation therapy. SOCIAL HISTORY: Former smoker. 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 MEDICATIONS LIST: Currently, receiving Robitussin, Claritin, Ativan, Nitrostat, Zofran, Senokot, va ncomycin. He was given cefepime as well. PHYSICAL EXAMINATION: VITAL SIGNS: T-max 97.8, BP 140/80, pulse 102, respirations 18 and O2 sat 99%. SKIN: Shows bilateral nephrostomy tubes. No Root catheter, peripheral IV access. No lymphadenopa thy. HEENT: Ocular movements are conjugate, alopecia. Oral cavity unremarkable. NECK: Supple. No jugular venous distention. LUNGS: With symmetric air entry. No crackles or wheezing. HEART: S1 and S2 with irregular rate. No S3 or S4. ABDOMEN: Soft, not distended. EXTREMITIES: Moves all extremities equally. No focal weakness. NEUROLOGIC: Plantar responses were flexor. No clonus. Cognitive function appears to be intact. LABORATORY AND X-RAY FINDINGS: Lab data has been reviewed above. Chest x-ray with no acute cardiop ulmonary disease. ASSESSMENT: Metastatic prostate cancer, currently in hospice care, admitted with nonspecific weakne ss and tachycardia. DISCUSSION: Differential diagnosis includes recrudescence of urine infection, possible associated b acteremia, volume depletion associated with decreased oral intake or a combination of the above. Si nce patient has been admitted to hospice, I think it would be reasonable to discharge him back home on oral third generation cephalosporin. If the family has decided against the hospice, then resumpt ion of active management with monitoring blood cultures and continuation of antimicrobial therapy wo uld be reasonable, but if he agree to maintain in the hospice care, then I think that discharge plan johnson with oral antimicrobials would be more appropriate.
[2017-07-02] MEDS: HYDROcodone/Acetaminophen 5/325 mg Tablet PO PRN (20:59)
[2017-07-02] MEDS ORDERED: Vancomycin HCl 1 GM in Sodium Chloride 0.9% 250 ML 250 ML IVPB SCH (21:00)
[2017-07-02] MEDS: Cefepime 2 GM, Syringe 2.5 ML in Sterile Water 10 ML SLOW IVP SCH (21:00)
[2017-07-02] MEDS: Famotidine 20 MG TAB PO SCH (21:00)
[2017-07-02] MEDS ORDERED: Cefepime 2 GM in Sodium Chloride 0.9% 100 ML IVPB SCH (21:00)
[2017-07-02] MEDS: Vancomycin HCl 1 GM in Premix Bag 1 BAG IVPB SCH (21:01)
[2017-07-02 22:43] VITALS: BMI 18.8
[2017-07-03] MEDS: Sodium Chloride 0.9% 1,000 ML IV SCH ×3 (03:45→20:23)
[2017-07-03 06:03] LABS: #Lymphocytes 0.4 thou/uL (1.20-3.40); #Monocytes 0.1 thou/uL (0.11-0.59); #Neutrophils 5.6 thou/uL (1.40-6.50); %Eosinophils 0.8 % (0.0-10.0); %Lymphocytes 6.2 % (21.0-51.0); %Monocytes 1.5 % (0.0-10.0); Hematocrit 24.9 % (42.0-52.0); Mean Platelet Volume 8.3 fL (7.4-10.4); Red Blood Cell (RBC) Count 2.74 mill/uL (4.70-6.10); White Blood Cell (WBC) Count 6.1 thou/uL (4.8-10.8)
[2017-07-03 06:29] LABS: Anion Gap 12 mmol/L (10-20); BUN (Urea Nitrogen) 16 mg/dL (8.4-25.7); Calc. Creatinine Clearance 64 mL/min (70-130); Calcium 7.5 mg/dL (7.8-10.44); Carbon Dioxide 22 mmol/L (23-31); Chloride 105 mmol/L (98-107); Estimated GFR-MDRD Greater than 90
[2017-07-03] MEDS: Fluconazole 100 MG TAB PO SCH (09:46)
[2017-07-03] MEDS: Famotidine 20 MG TAB PO SCH ×2 (09:46→20:28)
[2017-07-03] MEDS: Enoxaparin Sodium 40 MG/0.4 ML SYRINGE SC SCH (09:47)
[2017-07-03] MEDS: Cefepime 2 GM, Syringe 2.5 ML in Sterile Water 10 ML SLOW IVP SCH ×2 (09:48→20:28)
[2017-07-03] MEDS: Vancomycin HCl 1 GM in Premix Bag 1 BAG IVPB SCH (09:48)
--- NOTE | 2017-07-03 10:21 | PDOC.PN ---
- Subjective Encounter Start Date: 07/03/17 Encounter Start Time: 10:19 Subjective: feels better. ate this mormning.no fever/chills. -: no SOB/CP. -: discussed care." i prefer to be treated fully for infection" - Objective Resuscitation Status: Resuscitation Status DNR:Do Not Resuscitate Vital Signs & Weight: Vital Signs (12 hours) Temp Pulse Resp BP Pulse Ox 07/03/17 07:29 98 F 96 18 117/76 99 07/03/17 04:00 99.7 F H 84 18 108/71 100 07/03/17 00:00 98.8 F 97 20 100/70 97 07/02/17 22:45 97.0 F L 87 20 129/83 95 Weight Weight 120 lb 3.2 oz I&O: 07/02/17 07/03/17 07/04/17 06:59 06:59 06:59 Intake Total 1260 Output Total 2275 Balance -1015 Result Diagrams: 07/03/17 05:22 07/03/17 05:22 Additional Labs: Microbiology 07/02/17 08:44 Venous blood - Left Hand Blood Culture - Preliminary Gram Negative Otoniel 07/02/17 08:44 Venous blood - Left Hand Blood Culture - Preliminary Gram Negative Otoniel 07/02/17 08:41 Venous blood - Right Hand Blood Culture - Preliminary Escherichia coli 07/02/17 08:41 Venous blood - Right Hand Blood Culture - Preliminary Escherichia coli 07/02/17 08:25 Urine Nephrostomy tube Urine Culture - Preliminary Gram Negative Otoniel Non-Hemolytic Streptococcus Laboratory Tests 05/14/17 05/14/17 05/15/17 11:02 15:41 04:00 Lactic Acid Phosphorus 3.1 Magnesium 1.7 Alkaline Phosphatase 225 H 206 H 05/16/17 05/17/17 07/02/17 04:45 03:41 08:20 Lactic Acid 3.0 H Phosphorus Magnesium Alkaline Phosphatase 173 H 116 07/02/17 14:02 Lactic Acid 2.8 H Phosphorus Magnesium Alkaline Phosphatase Phys Exam - Physical Examination Constitutional: NAD looks better HEENT: PERRLA, moist MMs, sclera anicteric, oral pharynx no lesions Neck: no nodes, no JVD, supple, full ROM Respiratory: no wheezing, no rales, no rhonchi, clear to auscultation bilateral Cardiovascular: RRR, no significant murmur, no rub, gallop Gastrointestinal: soft, non-tender, no distention, positive bowel sounds b/l nephrostomy tubes in place w cloudy urine in bags Musculoskeletal: no edema, pulses present Neurological: non-focal, normal sensation, moves all 4 limbs Psychiatric: normal affect, A&O x 3 Skin: no rash Dx/Plan (1) Gram-negative bacteremia Code(s): R78.81 - BACTEREMIA Status: Acute (2) UTI (urinary tract infection) Status: Acute Comment: per above.. (3) Sepsis Code(s): A41.9 - SEPSIS, UNSPECIFIED ORGANISM Status: Resolved (4) Paroxysmal atrial fibrillation Code(s): I48.0 - PAROXYSMAL ATRIAL FIBRILLATION Status: Acute (5) Prostate cancer metastatic to bone Code(s): C61 - MALIGNANT NEOPLASM OF PROSTATE; C79.51 - SECONDARY MALIGNANT NEOPLASM OF BONE Status: Acute (6) Nephrostomy tubes in place Status: Acute (7) Anemia of chronic disease Code(s): D63.8 - ANEMIA IN OTHER CHRONIC DISEASES CLASSIFIED ELSEWHERE Status : Acute - Plan continue antibiotics, PT/OT, respiratory therapy, incentive spirometry, out of bed/ambulate, DVT proph w/SCDs Cont broad spectrum IV ABx.pt wants to be fully treated. -: palliative team consulted for home hospice post DC -: appreciate ID and urology input. -: monitor renal Fx. cont IVF. -: am labs.transfuse PRBC if Hb <7 * . Review of Systems - Review of Systems Constitutional: Weakness, Malaise. negative: Fever, Chills, Sweats, Other Respiratory: negative: Cough, Dry, Shortness of Breath, Hemoptysis, SOB with Excertion, Pleuritic Pain, Sputum, Wheezing Cardiovascular: negative: Chest Pain, Palpitations, Orthopnea, Paroxysmal Noc. Dyspnea, Edema, Light Headedness, Other Gastrointestinal: negative: Nausea, Vomiting, Abdominal Pain, Diarrhea, Constipation, Melena, Hematochezia, Other Genitourinary: negative: Dysuria, Frequency, Incontinence, Hematuria, Retention , Other Musculoskeletal: negative: Neck Pain, Shoulder Pain, Arm Pain, Back Pain, Hand Pain, Leg Pain, Foot Pain, Other Neurological: negative: Weakness, Numbness, Incoordination, Change in Speech, Confusion, Seizures, Other - Medications/Allergies Allergies/Adverse Reactions: Allergies Allergy/AdvReac Type Severity Reaction Status Date / Time No Known Allergies Allergy Verified 06/06/17 08:12 Medications: Current Medications Acetaminophen (Tylenol) 650 mg PO Q4H PRN PRN Reason: Headache/Fever or Pain Hydrocodone Bitart/Acetaminophen ([place] 5/325) 1 tab PO Q4H PRN PRN Reason: Moderate Pain (4-6) Last Admin: 07/02/17 20:59 Dose: 1 tab Al Hydroxide/Mg Hydroxide (Maalox) 30 ml PO Q6H PRN PRN Reason: Heartburn or Indigestion Benzonatate (Tessalon) 100 mg PO Q4H PRN PRN Reason: Cough Bisacodyl (Dulcolax) 10 mg PO DAILYPRN PRN PRN Reason: Constipation Calcium Carbonate (Tums) 1,000 mg PO Q4H PRN PRN Reason: Heartburn or Indigestion Clonidine (Catapres) 0.1 mg PO Q4H PRN PRN Reason: Systolic BP > 160 Diltiazem HCl (Cardizem Cd) 120 mg PO DAILY [facility] Last Admin: 07/03/17 09:45 Dose: 120 mg Enoxaparin Sodium (Lovenox) 40 mg SC 0900 [facility] Last Admin: 07/03/17 09:47 Dose: 40 mg Famotidine (Pepcid) 20 mg PO BID [facility] Last Admin: 07/03/17 09:46 Dose: 20 mg Fluconazole (Diflucan) 100 mg PO DAILY [facility] Last Admin: 07/03/17 09:46 Dose: 100 mg Guaifenesin (Robitussin Sf) 200 mg PO Q4H PRN PRN Reason: Cough Hydralazine HCl (Apresoline) 10 mg SLOW IVP Q4H PRN PRN Reason: Systolic BP > 170 Hydroxyzine Pamoate (Vistaril) 25 mg PO Q6H PRN PRN Reason: Itching Sodium Chloride (Normal Saline 0.9%) 1,000 mls @ 75 mls/hr IV .[id number] [facility] Last Admin: 07/03/17 03:45 Dose: 1,000 mls Vancomycin HCl 1 gm/ Device 200 mls @ 133.333 mls/hr IVPB Q12HR [facility] Last Admin: 07/03/17 09:48 Dose: 200 mls Cefepime HCl 2 gm/ Syringe 2.5 (ml/ Sterile Water) 12.5 mls @ 150 mls/hr SLOW IVP Q12HR [facility] Last Admin: 07/03/17 09:48 Dose: 12.5 mls Loratadine (Claritin) 10 mg PO DAILYPRN PRN PRN Reason: Sinus Symptoms Lorazepam (Ativan) 1 mg PO Q4H PRN PRN Reason: Anxiety/Agitation Miscellaneous Medication (Pharmacy To Dose) 0 each IVPB ASDIR PRN PRN Reason: Pharmacy to Dose [facility] AND ELIEZER Nitroglycerin (Nitrostat) 0.4 mg SL Q5MIN PRN PRN Reason: Chest Pain Ondansetron HCl (Zofran) 4 mg IVP Q6H PRN PRN Reason: Nausea/Vomiting Senna (Senokot) 2 tab PO HSPRN PRN PRN Reason: Constipation Tramadol HCl (Ultram) 50 mg PO Q4H PRN PRN Reason: Moderate Pain (4-6)
[2017-07-03] MEDS ORDERED: cefTRIAXone\\ROCEPHIN 1 GM in Sodium Chloride 0.9% 100 ML IVPB SCH (10:30)
[2017-07-03] MEDS: HYDROcodone/Acetaminophen 5/325 mg Tablet PO PRN (15:44)
[2017-07-03 20:22] LABS: Vancomycin, Trough 19.2 ug/mL
[2017-07-03] MEDS: Vancomycin HCl 750 MG in Sodium Chloride 0.9% 250 ML 250 ML IVPB SCH (21:30)
[2017-07-04] MEDS: HYDROcodone/Acetaminophen 5/325 mg Tablet PO PRN ×3 (00:03→18:06)
[2017-07-04 05:42] LABS: #Lymphocytes 0.4 thou/uL (1.20-3.40); #Monocytes 0.2 thou/uL (0.11-0.59); #Neutrophils 5.5 thou/uL (1.40-6.50); %Basophils 0.1 % (0.0-1.0); %Eosinophils 0.7 % (0.0-10.0); %Lymphocytes 6.9 % (21.0-51.0); %Monocytes 2.9 % (0.0-10.0); Hematocrit 23.3 % (42.0-52.0); Mean Platelet Volume 8.3 fL (7.4-10.4); Red Blood Cell (RBC) Count 2.57 mill/uL (4.70-6.10); White Blood Cell (WBC) Count 6.1 thou/uL (4.8-10.8)
[2017-07-04 06:07] LABS: Anion Gap 11 mmol/L (10-20); BUN (Urea Nitrogen) 16 mg/dL (8.4-25.7); Calc. Creatinine Clearance 63 mL/min (70-130); Calcium 7.6 mg/dL (7.8-10.44); Carbon Dioxide 21 mmol/L (23-31); Chloride 106 mmol/L (98-107); Estimated GFR-MDRD 90
--- NOTE | 2017-07-04 07:46 | PRG ---
DATE OF SERVICE: 07/04/2017 SUBJECTIVE: The patient seen and examined. PHYSICAL EXAMINATION: VITAL SIGNS: Stable. Afebrile. T-max of 100.7 yesterday afternoon. I's and O 's 3580 in, 3550 out, one bowel movement. : Bilateral nephrostomy tubes with concentrated yellow urine. ABDOMEN: Soft, nontender, nondistended with no CVA tenderness. IMPRESSION AND PLAN: Mr. Shaffer is a 72-year-old male with history of advanced metastatic prostate cancer, hormone, chemo resistant with progression of multiple metastatic disease. 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 He is established with home hospice. He presented over the weekend due to generalized feeling of malaise. Cultures noted. Infectious Disease consult appreciated. Blood culture, urine culture demonstrates E. coli. Patient is hemodynamically stable. I did discuss with the patient again regarding indications for inpatient admission versus home hospice/ palliative care. As the patient is already well known to hospice palliative care service, I do recommend palliative care, due to his terminal disease. The patient has noncurable progressive prostate cancer with poor prognosis. I do believe the patient has been somewhat in denial regarding his terminal diagnosis. From a urologic perspective, the patient may be discharged with oral antibiotic regimen, but I will leave the final decision up to Infectious Disease. He states this morning that he is open to be discharged home with ongoing palliative care. If issues with decision making process, I do recommend Palliative Care consult revisit with patient and family. ROBERTO
--- NOTE | 2017-07-04 08:41 | PDOC.PN ---
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 - Objective Resuscitation Status: Resuscitation Status DNR:Do Not Resuscitate MAR Reviewed: Yes Vital Signs & Weight: Vital Signs (12 hours) Temp Pulse Resp BP Pulse Ox 07/04/17 08:00 98.5 F 81 20 100 07/04/17 05:23 98.5 F 81 20 106/68 98 07/04/17 04:00 98.0 F 86 18 114/66 100 07/04/17 00:00 99.2 F 95 20 126/75 100 Weight Weight 120 lb 4.8 oz I&O: 07/03/17 07/04/17 07/05/17 06:59 06:59 06:59 Intake Total 1260 3580 Output Total 2275 3550 Balance -1015 30 Result Diagrams: 07/04/17 05:31 07/04/17 05:31 Additional Labs: Microbiology 07/02/17 08:44 Venous blood - Left Hand Blood Culture - Preliminary Gram Negative Otoniel 07/02/17 08:41 Venous blood - Right Hand Blood Culture - Preliminary Escherichia coli 07/02/17 08:25 Urine Nephrostomy tube Urine Culture - Preliminary Escherichia coli Non-Hemolytic Streptococcus Phys Exam - Physical Examination Constitutional: NAD HEENT: PERRLA, moist MMs, sclera anicteric, oral pharynx no lesions Neck: no nodes, no JVD, supple, full ROM Respiratory: no wheezing, no rales, no rhonchi, clear to auscultation bilateral Cardiovascular: RRR, no significant murmur, no rub, gallop Gastrointestinal: soft, non-tender, no distention, positive bowel sounds Musculoskeletal: no edema, pulses present Neurological: non-focal, normal sensation, moves all 4 limbs Psychiatric: normal affect, A&O x 3 Skin: no rash Dx/Plan (1) Gram-negative bacteremia Code(s): R78.81 - BACTEREMIA Status: Acute (2) UTI (urinary tract infection) Status: Acute Comment: per above.. (3) Sepsis Code(s): A41.9 - SEPSIS, UNSPECIFIED ORGANISM Status: Resolved (4) Paroxysmal atrial fibrillation Code(s): I48.0 - PAROXYSMAL ATRIAL FIBRILLATION Status: Acute (5) Prostate cancer metastatic to bone Code(s): C61 - MALIGNANT NEOPLASM OF PROSTATE; C79.51 - SECONDARY MALIGNANT NEOPLASM OF BONE Status: Acute (6) Nephrostomy tubes in place Status: Acute (7) Anemia of chronic disease Code(s): D63.8 - ANEMIA IN OTHER CHRONIC DISEASES CLASSIFIED ELSEWHERE Status : Acute - Plan PT/OT, social group worker, out of bed/ambulate, DVT proph w/SCDs discussed w ID.will need protracted IV ABx for optimal treatment. -: Will need PICC.Pt wants full tretment. -: will once again ,have PCT talk w him and cont ABx for now -: cont supportive care. Monitor H/h.transfuse as needed -: Hemodynamically stable. * . Review of Systems - Medications/Allergies Allergies/Adverse Reactions: Allergies Allergy/AdvReac Type Severity Reaction Status Date / Time No Known Allergies Allergy Verified 06/06/17 08:12 Medications: Current Medications Acetaminophen (Tylenol) 650 mg PO Q4H PRN PRN Reason: Headache/Fever or Pain Hydrocodone Bitart/Acetaminophen ([place] 5/325) 1 tab PO Q4H PRN PRN Reason: Moderate Pain (4-6) Last Admin: 07/04/17 00:03 Dose: 1 tab Al Hydroxide/Mg Hydroxide (Maalox) 30 ml PO Q6H PRN PRN Reason: Heartburn or Indigestion Benzonatate (Tessalon) 100 mg PO Q4H PRN PRN Reason: Cough Bisacodyl (Dulcolax) 10 mg PO DAILYPRN PRN PRN Reason: Constipation Calcium Carbonate (Tums) 1,000 mg PO Q4H PRN PRN Reason: Heartburn or Indigestion Clonidine (Catapres) 0.1 mg PO Q4H PRN PRN Reason: Systolic BP > 160 Diltiazem HCl (Cardizem Cd) 120 mg PO DAILY [facility] Last Admin: 07/03/17 09:45 Dose: 120 mg Enoxaparin Sodium (Lovenox) 40 mg SC 0900 [facility] Last Admin: 07/03/17 09:47 Dose: 40 mg Famotidine (Pepcid) 20 mg PO BID [facility] Last Admin: 07/03/17 20:28 Dose: 20 mg Fluconazole (Diflucan) 100 mg PO DAILY [facility] Last Admin: 07/03/17 09:46 Dose: 100 mg Guaifenesin (Robitussin Sf) 200 mg PO Q4H PRN PRN Reason: Cough Hydralazine HCl (Apresoline) 10 mg SLOW IVP Q4H PRN PRN Reason: Systolic BP > 170 Hydroxyzine Pamoate (Vistaril) 25 mg PO Q6H PRN PRN Reason: Itching Sodium Chloride (Normal Saline 0.9%) 1,000 mls @ 75 mls/hr IV .[id number] [facility] Last Admin: 07/03/17 20:23 Dose: 1,000 mls Cefepime HCl 2 gm/ Syringe 2.5 (ml/ Sterile Water) 12.5 mls @ 150 mls/hr SLOW IVP Q12HR [facility] Last Admin: 07/03/17 20:28 Dose: 12.5 mls Vancomycin HCl 750 mg/ Sodium (Chloride) 250 mls @ 250 mls/hr IVPB Q12HR [facility] Last Admin: 07/03/17 21:30 Dose: 250 mls Loratadine (Claritin) 10 mg PO DAILYPRN PRN PRN Reason: Sinus Symptoms Lorazepam (Ativan) 1 mg PO Q4H PRN PRN Reason: Anxiety/Agitation Miscellaneous Medication (Pharmacy To Dose) 0 each IVPB ASDIR PRN PRN Reason: Pharmacy to Dose [facility] AND ELIEZER Nitroglycerin (Nitrostat) 0.4 mg SL Q5MIN PRN PRN Reason: Chest Pain Ondansetron HCl (Zofran) 4 mg IVP Q6H PRN PRN Reason: Nausea/Vomiting Senna (Senokot) 2 tab PO HSPRN PRN PRN Reason: Constipation Tramadol HCl (Ultram) 50 mg PO Q4H PRN PRN Reason: Moderate Pain (4-6)
[2017-07-04] MEDS: Cefepime 2 GM, Syringe 2.5 ML in Sterile Water 10 ML SLOW IVP SCH ×2 (09:42→22:35)
[2017-07-04] MEDS: Vancomycin HCl 750 MG in Sodium Chloride 0.9% 250 ML 250 ML IVPB SCH ×2 (09:42→22:35)
[2017-07-04] MEDS: Famotidine 20 MG TAB PO SCH ×3 (09:43→22:43)
[2017-07-04] MEDS: Fluconazole 100 MG TAB PO SCH (09:43)
[2017-07-04] MEDS: Enoxaparin Sodium 40 MG/0.4 ML SYRINGE SC SCH (09:43)
--- NOTE | 2017-07-04 15:10 | PDOC.EVN ---
Event Note - Event Note Event Note: Discussed ID recs for 2 week IV ABx with pt. he wants to pursue this and would like to see if this can be done at Home via HH agency.Will order PICC line. CM updated and order placed for
[2017-07-04] MEDS: Sodium Chloride 0.9% 1,000 ML IV SCH (16:09)
--- NOTE | 2017-07-04 16:47 | PRG ---
DATE OF SERVICE: 07/04/2017 SUBJECTIVE: Feeling better. No headaches, shortness of breath or chest pain, no abdominal pain. PHYSICAL EXAMINATION: VITAL SIGNS: T-max 99.2, blood pressure 119/80, pulse 81, respirations 20. GENERAL: Appears in no distress, oriented and alert. LUNGS: Clear. HEART: S1, S2, regular rate. ABDOMEN: Soft. Nephrostomy tubes. Urine is clear. NEUROLOGIC: Nonfocal. LABORATORY DATA: White cell count 6.1, hemoglobin 10.3, platelets 124. Sodium 135, creatinine 0.84 and microbiology with 2 sets of positive blood cultures. The organism is E. coli resistant to nubia olones and Bactrim only. ASSESSMENT AND DISCUSSION: Metastatic prostate cancer, currently on hospice care, admitted with thuy lim, tachycardia, now found to be bacteremic. We will continue Rocephin after discussion with rosana kuo, they prefer active treatment, so Rocephin for 2 weeks per PICC line placement and then transiti on to oral Augmentin for another 2 weeks after that.
[2017-07-04] MEDS: Acetaminophen 325 MG TAB PO PRN (22:34)
[2017-07-05] MEDS: hydrOXYzine Pamoate 25 mg Capsule PO PRN (00:07)
[2017-07-05] MEDS: HYDROcodone/Acetaminophen 5/325 mg Tablet PO PRN (05:59)
[2017-07-05 06:24] LABS: Anion Gap 11 mmol/L (10-20); BUN (Urea Nitrogen) 10 mg/dL (8.4-25.7); Calc. Creatinine Clearance 67 mL/min (70-130); Calcium 7.6 mg/dL (7.8-10.44); Carbon Dioxide 22 mmol/L (23-31); Chloride 107 mmol/L (98-107); Estimated GFR-MDRD Greater than 90
[2017-07-05] MEDS: Sodium Chloride 0.9% 1,000 ML IV SCH (07:17)
[2017-07-05 08:23] LABS: Vancomycin, Trough 21.4 ug/mL
--- NOTE | 2017-07-05 08:40 | PRG ---
DATE OF SERVICE: 07/05/2017 SUBJECTIVE: The patient is feeling well. Denies nausea, vomiting or chills. OBJECTIVE: VITAL SIGNS: Stable. He has been afebrile. I's and O's 2965 in, 3700 out, nephrostomy tube is katerin ining uneventfully with clear yellow urine. ABDOMEN: Soft, nontender, nondistended. LABORATORY DATA: White count 6, hemoglobin 7.3, which has been stable, platelet 124. Renal functio n stable at 0.79. IMPRESSION AND PLAN: Mr. Shaffer is a 72-year-old male with history of metastatic prostate cancer, ch emo hormone refractory on hospice palliative care. The patient admitted for weakness, found to have bacteremia. He is hemodynamically stable, has chosen active treatment for UTI; therefore Infectiou s Disease is planning PICC line with Rocephin, transitioning to amoxicillin. He has routine follow up with me for interval nephrostomy tube exchange as an outpatient. Discharge home from urologic pe rspective with hospice continuing hospice care. We will sign off.
[2017-07-05] MEDS ORDERED: Potassium Chloride 20 MEQ TAB PO SCH (09:15)
[2017-07-05] MEDS: Vancomycin HCl 750 MG in Sodium Chloride 0.9% 250 ML 250 ML IVPB SCH ×2 (10:47→21:22)
[2017-07-05] MEDS: Cefepime 2 GM, Syringe 2.5 ML in Sterile Water 10 ML SLOW IVP SCH ×2 (10:47→21:22)
[2017-07-05] MEDS: Enoxaparin Sodium 40 MG/0.4 ML SYRINGE SC SCH (10:48)
[2017-07-05] MEDS: Fluconazole 100 MG TAB PO SCH (10:48)
[2017-07-05] MEDS: Famotidine 20 MG TAB PO SCH ×2 (10:48→21:22)
--- NOTE | 2017-07-05 12:06 | SPC ---
ULTRASOUND-GUIDED LEFT UPPER EXTREMITY PICC LINE PLACEMENT: HISTORY: Bacteremia. COMPARISON: None. FINDINGS: Technically successful ultrasound-guided PICC line placement of the left upper extremity. Trim nate th is 45 cm. The single lumen catheter does flush and aspirate without difficulty. TECHNIQUE: Consent obtained for a left upper extremity PICC line placement. The left arm was prepped and drape d in a sterile fashion. Lidocaine 1%, buffered with sodium bicarbonate, was used for local anesthes ia. Under ultrasound guidance, a micropuncture needle was used to cannulate the basilic vein. A 0. 018 guide wire was advanced through then needle, to the level of the superior vena cava. The tract was dilated. A single lumen 5 Portuguese catheter was advanced through the wire. The wire was removed. The single lumen 5 Portuguese catheter does flush and aspirate without difficulty. Dark red blood was aspirated. The patient tolerated the procedure well. No immediate or post procedure complications . IMPRESSION: Successful left PICC with US guidance. POS: KOFFI
--- NOTE | 2017-07-05 13:51 | PDOC.PN ---
- Subjective Encounter Start Date: 07/05/17 Encounter Start Time: 13:50 Subjective: feels much better. appetite has improved. -: no nausea/vomiting/diarrhea - Objective Resuscitation Status: Resuscitation Status DNR:Do Not Resuscitate MAR Reviewed: Yes Vital Signs & Weight: Vital Signs (12 hours) Temp Pulse Resp BP BP Pulse Ox 07/05/17 11:55 98.1 F 95 18 135/78 97 07/05/17 10:48 133 H 115/58 L 07/05/17 07:40 97.7 F 83 18 96 07/05/17 07:34 97.7 F 83 18 115/58 L 96 07/05/17 04:00 98.4 F 83 18 125/80 99 Weight Admit Weight 118 lb 4.8 oz Weight 120 lb I&O: 07/04/17 07/05/17 07/06/17 06:59 06:59 06:59 Intake Total 3580 2965 Output Total 3550 3700 Balance 30 -735 Result Diagrams: 07/04/17 05:31 07/05/17 05:38 Phys Exam - Physical Examination Constitutional: NAD HEENT: PERRLA, moist MMs, sclera anicteric, oral pharynx no lesions Neck: no nodes, no JVD, supple, full ROM Respiratory: no wheezing, no rales, no rhonchi, clear to auscultation bilateral Cardiovascular: RRR, no significant murmur Gastrointestinal: soft, non-tender, no distention, positive bowel sounds Musculoskeletal: no edema, pulses present Neurological: non-focal, normal sensation, moves all 4 limbs Psychiatric: normal affect, A&O x 3 Skin: no rash Dx/Plan (1) Gram-negative bacteremia Code(s): R78.81 - BACTEREMIA Status: Acute (2) UTI (urinary tract infection) Status: Acute Comment: per above.. (3) Sepsis Code(s): A41.9 - SEPSIS, UNSPECIFIED ORGANISM Status: Resolved (4) Paroxysmal atrial fibrillation Code(s): I48.0 - PAROXYSMAL ATRIAL FIBRILLATION Status: Acute (5) Prostate cancer metastatic to bone Code(s): C61 - MALIGNANT NEOPLASM OF PROSTATE; C79.51 - SECONDARY MALIGNANT NEOPLASM OF BONE Status: Acute (6) Nephrostomy tubes in place Status: Acute (7) Anemia of chronic disease Code(s): D63.8 - ANEMIA IN OTHER CHRONIC DISEASES CLASSIFIED ELSEWHERE Status : Acute - Plan DVT proph w/SCDs s/p PICC line.cont rocephin X 2 weeks then PO augmentin -: DC home when IV ABx aranged. -: hemodynamically stable. * . Review of Systems - Review of Systems Constitutional: negative: Fever, Chills, Sweats, Weakness, Malaise, Other ENT: negative: Ear Pain, Ear Discharge, Nose Pain, Nose Discharge, Nose Congestion, Mouth Pain, Mouth Swelling, Throat Pain, Throat Swelling, Other Respiratory: negative: Cough, Dry, Shortness of Breath, Hemoptysis, SOB with Excertion, Pleuritic Pain, Sputum, Wheezing Cardiovascular: negative: Chest Pain, Palpitations, Orthopnea, Paroxysmal Noc. Dyspnea, Edema, Light Headedness, Other Gastrointestinal: negative: Nausea, Vomiting, Abdominal Pain, Diarrhea, Constipation, Melena, Hematochezia, Other Genitourinary: negative: Dysuria, Frequency, Incontinence, Hematuria, Retention , Other Musculoskeletal: negative: Neck Pain, Shoulder Pain, Arm Pain, Back Pain, Hand Pain, Leg Pain, Foot Pain, Other Neurological: negative: Weakness, Numbness, Incoordination, Change in Speech, Confusion, Seizures, Other - Medications/Allergies Allergies/Adverse Reactions: Allergies Allergy/AdvReac Type Severity Reaction Status Date / Time No Known Allergies Allergy Verified 06/06/17 08:12 Medications: Current Medications Acetaminophen (Tylenol) 650 mg PO Q4H PRN PRN Reason: Headache/Fever or Pain Last Admin: 07/04/17 22:34 Dose: 650 mg Hydrocodone Bitart/Acetaminophen ([place] 5/325) 1 tab PO Q4H PRN PRN Reason: Moderate Pain (4-6) Last Admin: 07/05/17 05:59 Dose: 1 tab Al Hydroxide/Mg Hydroxide (Maalox) 30 ml PO Q6H PRN PRN Reason: Heartburn or Indigestion Benzonatate (Tessalon) 100 mg PO Q4H PRN PRN Reason: Cough Bisacodyl (Dulcolax) 10 mg PO DAILYPRN PRN PRN Reason: Constipation Calcium Carbonate (Tums) 1,000 mg PO Q4H PRN PRN Reason: Heartburn or Indigestion Clonidine (Catapres) 0.1 mg PO Q4H PRN PRN Reason: Systolic BP > 160 Diltiazem HCl (Cardizem Cd) 120 mg PO DAILY [facility] Last Admin: 07/05/17 10:48 Dose: 120 mg Enoxaparin Sodium (Lovenox) 40 mg SC 0900 [facility] Last Admin: 07/05/17 10:48 Dose: 40 mg Famotidine (Pepcid) 20 mg PO BID [facility] Last Admin: 07/05/17 10:48 Dose: 20 mg Fluconazole (Diflucan) 100 mg PO DAILY [facility] Last Admin: 07/05/17 10:48 Dose: 100 mg Guaifenesin (Robitussin Sf) 200 mg PO Q4H PRN PRN Reason: Cough Hydralazine HCl (Apresoline) 10 mg SLOW IVP Q4H PRN PRN Reason: Systolic BP > 170 Hydroxyzine Pamoate (Vistaril) 25 mg PO Q6H PRN PRN Reason: Itching Last Admin: 07/05/17 00:07 Dose: 25 mg Sodium Chloride (Normal Saline 0.9%) 1,000 mls @ 75 mls/hr IV .[id number] [facility] Last Admin: 07/05/17 07:17 Dose: Not Given Cefepime HCl 2 gm/ Syringe 2.5 (ml/ Sterile Water) 12.5 mls @ 150 mls/hr SLOW IVP Q12HR [facility] Last Admin: 07/05/17 10:47 Dose: 12.5 mls Vancomycin HCl 750 mg/ Sodium (Chloride) 250 mls @ 250 mls/hr IVPB Q12HR [facility] Last Admin: 07/05/17 10:47 Dose: 250 mls Loratadine (Claritin) 10 mg PO DAILYPRN PRN PRN Reason: Sinus Symptoms Lorazepam (Ativan) 1 mg PO Q4H PRN PRN Reason: Anxiety/Agitation Miscellaneous Medication (Pharmacy To Dose) 0 each IVPB ASDIR PRN PRN Reason: Pharmacy to Dose [facility] Nitroglycerin (Nitrostat) 0.4 mg SL Q5MIN PRN PRN Reason: Chest Pain Ondansetron HCl (Zofran) 4 mg IVP Q6H PRN PRN Reason: Nausea/Vomiting Senna (Senokot) 2 tab PO HSPRN PRN PRN Reason: Constipation Sodium Chloride (Flush - Normal Saline) 10 ml IVF Q12HR [facility] Last Admin: 07/05/17 10:49 Dose: 10 ml Sodium Chloride (Flush - Normal Saline) 10 ml IVF PRN PRN PRN Reason: Saline Flush Tramadol HCl (Ultram) 50 mg PO Q4H PRN PRN Reason: Moderate Pain (4-6) Last Admin: 07/04/17 22:34 Dose: 50 mg
[2017-07-05] MEDS ORDERED: HYDROcodone/Acetaminophen 5/325 mg Tablet PO PRN (18:02)
[2017-07-06] MEDS: hydrOXYzine Pamoate 25 mg Capsule PO PRN (00:13)
[2017-07-06] MEDS: HYDROcodone/Acetaminophen 5/325 mg Tablet PO PRN (00:13)
[2017-07-06 05:20] LABS: Anion Gap 13 mmol/L (10-20); BUN (Urea Nitrogen) 11 mg/dL (8.4-25.7); Calc. Creatinine Clearance 55 mL/min (70-130); Calcium 7.7 mg/dL (7.8-10.44); Carbon Dioxide 20 mmol/L (23-31); Chloride 108 mmol/L (98-107); Estimated GFR-MDRD 77
[2017-07-06] MEDS: Sodium Chloride 0.9% 1,000 ML IV SCH ×3 (05:30→21:55)
[2017-07-06] MEDS: Enoxaparin Sodium 40 MG/0.4 ML SYRINGE SC SCH (08:22)
[2017-07-06] MEDS: Famotidine 20 MG TAB PO SCH ×2 (08:22→21:55)
[2017-07-06] MEDS: Fluconazole 100 MG TAB PO SCH (08:22)
[2017-07-06 08:45] LABS: Vancomycin, Trough 21.7 ug/mL
[2017-07-06] MEDS ORDERED: Protamine Sulfate 50 MG/5 ML VIAL ONE (12:51)
[2017-07-06] MEDS: Cefepime 2 GM, Syringe 2.5 ML in Sterile Water 10 ML SLOW IVP SCH ×2 (13:51→21:55)
[2017-07-06] MEDS: Vancomycin HCl 750 MG in Sodium Chloride 0.9% 250 ML 250 ML IVPB SCH ×2 (13:52→21:54)
--- NOTE | 2017-07-06 16:16 | PDOC.PN ---
- Subjective Encounter Start Date: 07/06/17 Encounter Start Time: 09:00 Subjective: NO NEW COMPLAINTS - Objective Resuscitation Status: Resuscitation Status DNR:Do Not Resuscitate MAR Reviewed: Yes Vital Signs & Weight: Vital Signs (12 hours) Temp Pulse Resp BP Pulse Ox 07/06/17 11:45 100.1 F H 125 H 16 125/78 95 07/06/17 08:30 98.9 F 100 16 97 07/06/17 08:22 100 07/06/17 08:00 98.9 F 100 14 130/77 97 Weight Admit Weight 118 lb 4.8 oz Weight 121 lb 8 oz I&O: 07/05/17 07/06/17 07/07/17 06:59 06:59 06:59 Intake Total 2965 3015 Output Total 3700 1975 Balance -735 1040 Result Diagrams: 07/04/17 05:31 07/06/17 04:25 Phys Exam - Physical Examination Constitutional: NAD HEENT: PERRLA, moist MMs, sclera anicteric Neck: supple, full ROM Respiratory: clear to auscultation bilateral Cardiovascular: irregular Gastrointestinal: soft, non-tender Musculoskeletal: pulses present Neurological: non-focal, moves all 4 limbs Psychiatric: normal affect, A&O x 3 Deviation from normal: PICC LINE RT THORAX Dx/Plan (1) Anemia of chronic disease Code(s): D63.8 - ANEMIA IN OTHER CHRONIC DISEASES CLASSIFIED ELSEWHERE Status : Acute (2) Gram-negative bacteremia Code(s): R78.81 - BACTEREMIA Status: Acute (3) Nephrostomy tubes in place Status: Acute (4) Paroxysmal atrial fibrillation Code(s): I48.0 - PAROXYSMAL ATRIAL FIBRILLATION Status: Acute (5) Prostate cancer metastatic to bone Code(s): C61 - MALIGNANT NEOPLASM OF PROSTATE; C79.51 - SECONDARY MALIGNANT NEOPLASM OF BONE Status: Acute (6) Bilateral hydronephrosis Code(s): N13.30 - UNSPECIFIED HYDRONEPHROSIS Status: Acute Comment: s/p nephrostomy.. (7) UTI (urinary tract infection) Status: Acute Comment: per above.. (8) Sepsis Code(s): A41.9 - SEPSIS, UNSPECIFIED ORGANISM Status: Resolved - Plan cont current plan of care, continue antibiotics, neonatal social worker REQUIRES IV ROCEPHIN FOR [address] ROBERTSON -: PAYOR APPROVAL PENDING * .
[2017-07-07 05:04] LABS: #Eosinphils 0.1 thou/uL (0.0-0.7); #Lymphocytes 0.4 thou/uL (1.20-3.40); #Monocytes 0.2 thou/uL (0.11-0.59); #Neutrophils 5.6 thou/uL (1.40-6.50); %Basophils 0.2 % (0.0-1.0); %Monocytes 2.9 % (0.0-10.0); Hematocrit 23.8 % (42.0-52.0); Mean Platelet Volume 8.4 fL (7.4-10.4); Red Blood Cell (RBC) Count 2.63 mill/uL (4.70-6.10); White Blood Cell (WBC) Count 6.3 thou/uL (4.8-10.8)
[2017-07-07 05:17] LABS: Anion Gap 11 mmol/L (10-20); BUN (Urea Nitrogen) 12 mg/dL (8.4-25.7); Calc. Creatinine Clearance 65 mL/min (70-130); Calcium 8.1 mg/dL (7.8-10.44); Carbon Dioxide 21 mmol/L (23-31); Chloride 107 mmol/L (98-107); Estimated GFR-MDRD Greater than 90
--- NOTE | 2017-07-07 07:45 | PDOC.PN ---
- Subjective Encounter Start Date: 07/07/17 Encounter Start Time: 06:30 Subjective: feels fine this morning - Objective Resuscitation Status: Resuscitation Status DNR:Do Not Resuscitate MAR Reviewed: Yes Vital Signs & Weight: Vital Signs (12 hours) Temp Pulse Resp BP Pulse Ox 07/07/17 04:00 98.7 F 101 H 22 H 124/78 100 Weight Admit Weight 118 lb 4.8 oz Weight 121 lb 9.6 oz I&O: 07/06/17 07/07/17 07/08/17 06:59 06:59 06:59 Intake Total 3015 2410 Output Total 1974 3295 Balance 1040 -885 Result Diagrams: 07/07/17 04:07 07/07/17 04:07 Phys Exam - Physical Examination Constitutional: NAD HEENT: PERRLA, moist MMs, sclera anicteric Neck: supple, full ROM Respiratory: clear to auscultation bilateral Cardiovascular: irregular Gastrointestinal: soft, non-tender Musculoskeletal: no edema, pulses present Neurological: non-focal, moves all 4 limbs Psychiatric: normal affect, A&O x 3 Dx/Plan (1) Anemia of chronic disease Code(s): D63.8 - ANEMIA IN OTHER CHRONIC DISEASES CLASSIFIED ELSEWHERE Status : Acute (2) Gram-negative bacteremia Code(s): R78.81 - BACTEREMIA Status: Acute (3) Nephrostomy tubes in place Status: Acute (4) Paroxysmal atrial fibrillation Code(s): I48.0 - PAROXYSMAL ATRIAL FIBRILLATION Status: Acute (5) Prostate cancer metastatic to bone Code(s): C61 - MALIGNANT NEOPLASM OF PROSTATE; C79.51 - SECONDARY MALIGNANT NEOPLASM OF BONE Status: Acute (6) Bilateral hydronephrosis Code(s): N13.30 - UNSPECIFIED HYDRONEPHROSIS Status: Acute Comment: s/p nephrostomy.. (7) UTI (urinary tract infection) Status: Acute Comment: per above.. (8) Sepsis Code(s): A41.9 - SEPSIS, UNSPECIFIED ORGANISM Status: Resolved - Plan cont current plan of care, continue antibiotics IV ABX RX APPROVED, HOME TOMORROW WITH HOME HEALTH * .
--- NOTE | 2017-07-07 08:24 | PRG ---
DATE OF SERVICE: 07/06/2017 SUBJECTIVE: Feeling better and ready to go home. No respiratory symptoms or abdominal pain. No laura rrhea. OBJECTIVE: VITAL SIGNS: Had a temperature max of 100.1, now 98.7; pulse 101; blood pressure 120/70. GENERAL: Awake, alert, oriented, in no distress. LUNGS: With symmetric air entry. HEART: S1, S2, regular rate. ABDOMEN: Soft, not distended. Stents in place and Root catheter. EXTREMITIES: Moves all extremities equally. LABORATORY DATA: White cell count 6.3, hemoglobin 7.8, platelets 150, ____% neutrophils. Creatinine 0.83. No new microbiology information. The patient has a PICC line in place. ASSESSMENT AND DISCUSSION: Metastatic prostate cancer, on hospice care. To be continued on Rocephin for 2 weeks and then transitioned to Augmentin after that. The patient will likely experience recru descence of these complications in the future.
[2017-07-07] MEDS: Famotidine 20 MG TAB PO SCH ×2 (08:45→20:20)
[2017-07-07] MEDS: Fluconazole 100 MG TAB PO SCH (08:45)
[2017-07-07] MEDS: Enoxaparin Sodium 40 MG/0.4 ML SYRINGE SC SCH (08:46)
[2017-07-07] MEDS: Vancomycin HCl 750 MG in Sodium Chloride 0.9% 250 ML 250 ML IVPB SCH (08:46)
[2017-07-07] MEDS ORDERED: Metoprolol Tartrate 5 MG/5 ML VIAL ONE (11:28)
[2017-07-07] MEDS ORDERED: Metoprolol Tartrate 5 MG/5 ML VIAL IVP SCH (11:30)
[2017-07-07] MEDS: Cefepime 2 GM, Syringe 2.5 ML in Sterile Water 10 ML SLOW IVP SCH (11:58)
[2017-07-07] MEDS: Sodium Chloride 0.9% 1,000 ML IV SCH ×2 (13:40→13:41)
[2017-07-07] MEDS: Acetaminophen 325 MG TAB PO PRN (16:19)
[2017-07-07] MEDS ORDERED: cefTRIAXone\\ROCEPHIN 1 GM, Syringe 0.4 ML in Sterile Water 9.6 ML SLOW IVP SCH (16:45)
[2017-07-08] MEDS: Sodium Chloride 0.9% 1,000 ML IV SCH ×2 (03:11→14:59)
[2017-07-08 05:47] LABS: Anion Gap 11 mmol/L (10-20); BUN (Urea Nitrogen) 11 mg/dL (8.4-25.7); Calc. Creatinine Clearance 61 mL/min (70-130); Calcium 7.9 mg/dL (7.8-10.44); Carbon Dioxide 22 mmol/L (23-31); Chloride 107 mmol/L (98-107); Estimated GFR-MDRD 86
[2017-07-08] MEDS ORDERED: Potassium Chloride 20 MEQ TAB PO SCH ×2 (06:15→09:45)
[2017-07-08 08:39] LABS: Vancomycin, Trough 14.3 ug/mL
[2017-07-08] MEDS ORDERED: cefTRIAXone\\ROCEPHIN 2 GM in Sodium Chloride 0.9% 100 ML IVPB SCH (09:00)
[2017-07-08] MEDS: Fluconazole 100 MG TAB PO SCH (09:22)
[2017-07-08] MEDS: Enoxaparin Sodium 40 MG/0.4 ML SYRINGE SC SCH (09:22)
[2017-07-08] MEDS: Famotidine 20 MG TAB PO SCH (09:22)
--- NOTE | 2017-07-08 11:46 | PDOC.PN ---
- Subjective Encounter Start Date: 07/08/17 Encounter Start Time: 07:00 Subjective: feels good, wants to go home - Objective Resuscitation Status: Resuscitation Status DNR:Do Not Resuscitate MAR Reviewed: Yes Vital Signs & Weight: Vital Signs (12 hours) Temp Pulse Resp BP Pulse Ox 07/08/17 07:47 98.2 F 98 17 121/79 98 07/08/17 04:00 98.9 F 88 18 111/65 97 Weight Admit Weight 118 lb 4.8 oz Weight 124 lb 4.8 oz I&O: 07/07/17 07/08/17 07/09/17 06:59 06:59 06:59 Intake Total 2410 3250 Output Total 3295 2800 Balance -885 450 Result Diagrams: 07/07/17 04:07 07/08/17 04:53 Phys Exam - Physical Examination HEENT: PERRLA, moist MMs Neck: no JVD, supple Respiratory: no wheezing, no rales Cardiovascular: RRR, no significant murmur Gastrointestinal: soft, non-tender, positive bowel sounds has 2 nephrostomy tubes+ Musculoskeletal: pulses present, edema present Neurological: non-focal, moves all 4 limbs Psychiatric: A&O x 3 Dx/Plan (1) Bacteremia due to Escherichia coli Code(s): R78.81 - BACTEREMIA Status: Acute (2) Hypokalemia Code(s): E87.6 - HYPOKALEMIA Status: Acute (3) Anemia of chronic disease Code(s): D63.8 - ANEMIA IN OTHER CHRONIC DISEASES CLASSIFIED ELSEWHERE Status : Chronic (4) Nephrostomy tubes in place Status: Chronic (5) Paroxysmal atrial fibrillation Code(s): I48.0 - PAROXYSMAL ATRIAL FIBRILLATION Status: Chronic (6) Prostate cancer metastatic to bone Code(s): C61 - MALIGNANT NEOPLASM OF PROSTATE; C79.51 - SECONDARY MALIGNANT NEOPLASM OF BONE Status: Chronic (7) Sepsis Code(s): A41.9 - SEPSIS, UNSPECIFIED ORGANISM Status: Resolved Qualifiers: Sepsis type: Escherichia coli Qualified Code(s): A41.51 - Sepsis due to Escherichia coli [E. coli] - Plan is on ceftriaxone, to continue for 11 more days then augmentin per -: replace potassium, bmp on , is on oral kdur 20meq daily for 10 days -: may dc home * . Review of Systems - Medications/Allergies Allergies/Adverse Reactions: Allergies Allergy/AdvReac Type Severity Reaction Status Date / Time No Known Allergies Allergy Verified 06/06/17 08:12 Medications: Current Medications Acetaminophen (Tylenol) 650 mg PO Q4H PRN PRN Reason: Headache/Fever or Pain Last Admin: 07/07/17 16:19 Dose: 650 mg Hydrocodone Bitart/Acetaminophen ([place] 5/325) 1 tab PO Q4H PRN PRN Reason: Moderate Pain (4-6) Last Admin: 07/06/17 00:13 Dose: 1 tab Hydrocodone Bitart/Acetaminophen ([place] 5/325) 2 tab PO Q6H PRN PRN Reason: Pain Last Admin: 07/07/17 23:29 Dose: 2 tab Al Hydroxide/Mg Hydroxide (Maalox) 30 ml PO Q6H PRN PRN Reason: Heartburn or Indigestion Benzonatate (Tessalon) 100 mg PO Q4H PRN PRN Reason: Cough Bisacodyl (Dulcolax) 10 mg PO DAILYPRN PRN PRN Reason: Constipation Calcium Carbonate (Tums) 1,000 mg PO Q4H PRN PRN Reason: Heartburn or Indigestion Clonidine (Catapres) 0.1 mg PO Q4H PRN PRN Reason: Systolic BP > 160 Diltiazem HCl (Cardizem Cd) 120 mg PO DAILY [facility] Last Admin: 07/08/17 09:22 Dose: 120 mg Enoxaparin Sodium (Lovenox) 40 mg SC 0900 [facility] Last Admin: 07/08/17 09:22 Dose: 40 mg Famotidine (Pepcid) 20 mg PO BID [facility] Last Admin: 07/08/17 09:22 Dose: 20 mg Fluconazole (Diflucan) 100 mg PO DAILY [facility] Last Admin: 07/08/17 09:22 Dose: 100 mg Guaifenesin (Robitussin Sf) 200 mg PO Q4H PRN PRN Reason: Cough Hydralazine HCl (Apresoline) 10 mg SLOW IVP Q4H PRN PRN Reason: Systolic BP > 170 Hydroxyzine Pamoate (Vistaril) 25 mg PO Q6H PRN PRN Reason: Itching Last Admin: 07/06/17 00:13 Dose: 25 mg Sodium Chloride (Normal Saline 0.9%) 1,000 mls @ 75 mls/hr IV .[id number] [facility] Last Admin: 07/08/17 03:11 Dose: 1,000 mls Ceftriaxone Sodium 2 gm/ (Sodium Chloride) 100 mls @ 200 mls/hr IVPB 0900 [facility] Last Admin: 07/08/17 09:23 Dose: 100 mls Loratadine (Claritin) 10 mg PO DAILYPRN PRN PRN Reason: Sinus Symptoms Lorazepam (Ativan) 1 mg PO Q4H PRN PRN Reason: Anxiety/Agitation Miscellaneous Medication (Pharmacy To Dose) 0 each IVPB ASDIR PRN PRN Reason: Pharmacy to Dose [facility] AND ELIEZER Nitroglycerin (Nitrostat) 0.4 mg SL Q5MIN PRN PRN Reason: Chest Pain Ondansetron HCl (Zofran) 4 mg IVP Q6H PRN PRN Reason: Nausea/Vomiting Senna (Senokot) 2 tab PO HSPRN PRN PRN Reason: Constipation Sodium Chloride (Flush - Normal Saline) 10 ml IVF Q12HR [facility] Last Admin: 07/08/17 09:23 Dose: Not Given Sodium Chloride (Flush - Normal Saline) 10 ml IVF PRN PRN PRN Reason: Saline Flush Last Admin: 07/07/17 17:35 Dose: 10 ml Tramadol HCl (Ultram) 50 mg PO Q4H PRN PRN Reason: Moderate Pain (4-6) Last Admin: 07/04/17 22:34 Dose: 50 mg
[2017-07-08 16:10] VITALS: BP 117/68; TEMP 98.2
== END 2017-07-08 18:01 | disposition home health service (06) | DRG 872 ==
LOC: ERS 08:04 → 2NO 13:07
PROVIDERS: ADMIT Internal Medicine; ATTEND Internal Medicine
PROC: 02HV33Z Insertion of Infusion Device into Superior Vena Cava, Percutaneous Approach (ICD-10-PCS; principal; 2017-07-05)
PROC: B548ZZA Ultrasonography of Superior Vena Cava, Guidance (ICD-10-PCS; 2017-07-05)
DX: A41.51 Sepsis due to Escherichia coli [E. coli] (principal); E44.0 Moderate protein-calorie malnutrition; E87.2 Acidosis; C79.11 Secondary malignant neoplasm of bladder; C78.5 Secondary malignant neoplasm of large intestine and rectum; C79.51 Secondary malignant neoplasm of bone; E87.1 Hypo-osmolality and hyponatremia; E86.0 Dehydration; C61 Malignant neoplasm of prostate; N39.0 Urinary tract infection, site not specified; Z68.1 Body mass index [BMI] 19.9 or less, adult; E87.8 Other disorders of electrolyte and fluid balance, not elsewhere classified; I48.0 Paroxysmal atrial fibrillation; D50.9 Iron deficiency anemia, unspecified; Z96.0 Presence of urogenital implants; Z92.21 Personal history of antineoplastic chemotherapy; Z51.5 Encounter for palliative care; Z16.23 Resistance to quinolones and fluoroquinolones; Z92.3 Personal history of irradiation; N13.5 Crossing vessel and stricture of ureter without hydronephrosis; Z87.891 Personal history of nicotine dependence; E87.6 Hypokalemia; D64.89 Other specified anemias
CPT/HCPCS: 36415; 36416; 36569; 71010; 80048; 80053; 80202; 81003; 81015; 82248; 82553; 83605; 83615; 83880; 84100; 84153; 84484; 84550; 85025; 87040; 87077; 87086; 87149; 87186; 93005; 94760; 96365; 96367; A4216; C1751; G8978-GP-CN; G8979-GP-CK; G8987-GO-CJ; G8988-GO-CJ; G8989-GO-CJ; J0360; J0692; J0696; J1580; J1650; J2720; J3370; J7050; Q0177

== ENCOUNTER 2017-07-28 07:15 | Day surgery (SDC) | payer OTHER ==
[2017-07-28 08:13] VITALS: BP 148/97; TEMP 97.6; BMI 19.4
[2017-07-28] MEDS ORDERED: Iopamidol 300 61% 100 ML VIAL FS ONE (11:46)
--- NOTE | 2017-07-28 11:58 | SPC ---
HISTORY: Patient with chronic nephrostomy tubes. We are being asked to perform fluoroscopically guided nephro stomy tube exchanges. RADIATION DOXIMETRY: 2.1 minutes of fluoroscopy and DAP of 10.8 Gy per cm2. PROCEDURE: Informed consent was obtained from the patient. The right and left nephrostomy tube sites were prepp ed and draped in the usual sterile manner. Each of the nephrostomy tubes were injected, to confirm p osition. Each nephrostomy tube was cut. An 0.035 short Amplatz wire was introduced and positioned i nto the right and left collecting systems, appropriately. The old nephrostomy tube was removed. A 1 0 [place] right-sided and a 12 [place] left-sided nephrostomy tube was placed over the wire, into the r ight and left collecting systems, respectively. IMPRESSION: Successful right and left nephrostomy tube exchanges. POS: [facility]
== END 2017-07-28 09:30 | disposition home or self-care (01) ==
LOC: SPEC 07:15
PROVIDERS: ATTEND Urology
PROC: 0T25X0Z Change Drainage Device in Kidney, External Approach (ICD-10-PCS; principal; 2017-07-28)
DX: Z43.6 Encounter for attention to other artificial openings of urinary tract (principal); N13.1 Hydronephrosis with ureteral stricture, not elsewhere classified; C79.82 Secondary malignant neoplasm of genital organs; C79.51 Secondary malignant neoplasm of bone; I48.0 Paroxysmal atrial fibrillation; Z87.440 Personal history of urinary (tract) infections; Z85.46 Personal history of malignant neoplasm of prostate; Z79.899 Other long term (current) drug therapy; Z90.79 Acquired absence of other genital organ(s); Z87.891 Personal history of nicotine dependence
CPT/HCPCS: 50430; 50431; 50435; 75984; C1729; C1769

== ENCOUNTER 2017-08-18 09:55 | Inpatient (IN) | payer OTHER ==
--- NOTE | 2017-08-18 10:41 | RAD ---
AP CHEST: Indication: Chest pain, fever. Bloody bowel movements. FINDINGS: There is mild cardiomegaly. Lungs are clear. No pleural effusion is evident. No acute osseous abnorma lity is evident. IMPRESSION: Stable mild cardiomegaly when compared to the prior dated 07-02-17. No definite acute cardiopulmonary abnormality is evident. POS: [facility]
[2017-08-18 10:44] LABS: Hemoglobin 11.5 g/dL (14.0-18.0); Red Blood Cell (RBC) Count 4.01 mill/uL (4.70-6.10); White Blood Cell (WBC) Count 10.1 thou/uL (4.8-10.8)
[2017-08-18 10:45] LABS: Mean Corpuscular HGB CONC 31.7 g/dL (32.0-36.0); Mean Corpuscular Hemoglobin 28.6 pg (27.0-31.0); Mean Corpuscular Volume 90.3 fl (80.0-94.0); Platelet Count 262 thou/uL (130-400); RBC Distribution Width 18.5 % (11.5-14.5)
[2017-08-18 10:54] LABS: ALT (SGPT) 14 U/L (8-55); AST (SGOT) 23 U/L (5-34); Albumin 3.1 g/dL (3.4-4.8); Alkaline Phosphatase 163 U/L (40-150); Anion Gap 16 mmol/L (10-20); BUN (Urea Nitrogen) 14 mg/dL (8.4-25.7); Bilirubin, Total 0.4 mg/dL (0.2-1.2); CK (CPK) 108 U/L (30-200); Calc. Creatinine Clearance 0 mL/min (70-130); Calcium 8.4 mg/dL (7.8-10.44); Carbon Dioxide 23 mmol/L (23-31); Chloride 91 mmol/L (98-107); Estimated GFR-MDRD 80; Glucose 105 mg/dL (80-115); INR-International Normal Ratio 1.2; PTT 38.9 SEC (22.9-36.1); Potassium 4.1 mmol/L (3.5-5.1); Protein, Total 6.1 g/dL (5.8-8.1); Sodium 126 mmol/L (136-145)
[2017-08-18 11:01] LABS: CKMB 0.5 ng/mL (0-6.6); Troponin I 0.032 ng/mL (< 0.028)
[2017-08-18 11:32] LABS: Band 48 % (5-11); Lymphocytes 12 % (21-51); MDiff Complete? YES; Monocytes 2 % (0-10); Neutrophil 37 % (42-75); Reactive Lymphocytes 1 % (0-10)
--- NOTE | 2017-08-18 13:50 | HP ---
PRIMARY CARE PHYSICIAN: [facility] call admission. REASON FOR ADMISSION: Generalized weakness, influenza A, diarrhea, atrial fibrillation with rapid ve ntricular response. HISTORY OF PRESENT ILLNESS: A 72-year-old [place] male who has underlying history of metastatic pro state cancer as well as he has bilateral nephrostomy tube for hydronephrosis and he also has a histor y of paroxysmal atrial fibrillation. The patient lives at home and he has home health and hospice ca re. He has no DNR order. Patient reports that about 3 weeks ago, he was constipated and home health nurse gave him stool softener. On Tuesday, he was given stool softener about 3 weeks ago and Tuesday he started having diarrhea. First week he also had blackish bowel movement. At that time, patient's instructed him to go to the emergency room, but patient refused. Every day, he was having at l east 3 or 4 bowel movements during daytime as well as couple of times during night time, most of the time it was liquidy and foul smelling and mixed with stool. He did not have any melenotic stool subs equently. His diarrhea persisted and this is the third week he has ongoing diarrhea. He was becomin g more and more weak and last week he did not eat well. He was feeling exhausted difficult to ambula te. Last night, patient had similar diarrhea and he went to restroom and it took almost 20 minutes to com e out and that is why his checked on him and he was found on the floor. He did not lose conscio usness, but patient reports that because of his overall weakness, he was not able make to the bedroom . He did not injure anywhere. After going to bedroom, the patient had another bowel movement which was containing bright red blood per rectum. Patient was so weak that it was very difficult to ambula te. His is the only caregiver and she was worried about and that is why she checked temperature and his temperature was slightly elevated and that is why he was sent to the emergency room and this time, patient agreed to come to the ER. Patient's family member also tried to come to the emergency room on , but the patient al so refused at that time, but as patient becoming more and more weak and that is why he agreed to come to the ER today. When he came to the ER, he was having atrial fibrillation with RVR. He was given some Cardizem bolus and IV fluid. After that his heart rate reduced. was hesitant to take him home back with this weakness and that is why we decided to keep this patient in the hospital for further evaluation and treatment. Today in the emergency room, routine blood tests showed bandemia, indeterminate troponin and hyponatremia. The patient lost several pounds of weight over the last couple of weeks. Initiall y, patient was hypotensive in the emergency room with low grade fever. REVIEW OF SYSTEMS: The following complete review of systems was negative, unless otherwise mentioned in the HPI or below: Constitutional: Weight loss or gain, ability to conduct usual activities. Skin: Rash, itching. Eyes: Double vision, pain. ENT/Mouth: Nose bleeding, neck stiffness, pain, tenderness. Cardiovascular: Palpitations, dyspnea on exertion, orthopnea. Respiratory: Shortness of breath, wheezing, cough, hemoptysis, fever or night sweats. Gastrointestinal: Poor appetite, abdominal pain, heartburn, nausea, vomiting, constipation, or diarr hea. Genitourinary: Urgency, frequency, dysuria, nocturia. Musculoskeletal: Pain, swelling. Neurologic/Psychiatric: Anxiety, depression. Allergy/Immunologic: Skin rash, bleeding tendency. Please see my HPI for pertinent positives and negatives. All other review of systems reviewed and ne gative except as mentioned in the HPI. Notably, patient also had nausea, vomiting, and poor appetite . He denies any hematuria. He denies any headache, focal neurological deficit. He did not have any radiation therapy for his prostate cancer, but he had brain radiation for metastasis. PAST MEDICAL HISTORY: History of severe sepsis and septic shock due to Escherichia coli urinary trac t infection, bacteremia, and E. coli in 04/2017, bilateral hydronephrosis with bilateral nephrostomy tube requiring periodic extends through radiology metastatic prostate cancer, paroxysmal atrial fibri llation, not a candidate for chronic anticoagulation due to hematuria history, history of Clostridium difficile diarrhea, chronic microcytic anemia, moderate protein calorie malnutrition. PAST SURGICAL HISTORY: Bilateral nephrostomy tube placement. PAST PSYCHIATRIC HISTORY: Insomnia. ALLERGIES: No known drug allergies. CURRENT HOME MEDICATIONS: Vitamin D3 5000 units p.o. daily, Decadron 4 mg p.o. daily p.r.n., Cardize m CD 120 mg p.o. daily, ferrous sulfate 325 mg p.o. daily, [place] 1 tablet q.6 hourly p.r.n., multivit juarez 1 tablet p.o. daily, potassium chloride 20 mEq p.o. daily, Ambien 5 mg p.o. at bedtime p.r.n. SOCIAL HISTORY: Patient is . He lives with his . His is the main caregiver. No hi story of tobacco, alcohol or illicit drug abuse. FAMILY HISTORY: No strong family history of premature coronary artery disease, stroke or cancer. EMERGENCY ROOM COURSE: The patient has received IV fluid and Cardizem 10 mg bolus. PHYSICAL EXAMINATION: VITAL SIGNS: On arrival, blood pressure 94/70, pulse 126, respiratory rate 18, temperature 99.4, sat uration 100% on room air, weight 68.4 kilograms. GENERAL: Patient is currently alert, awake, chronically ill, appears weak. No obvious acute distres s. HEAD: Normocephalic, atraumatic. EYES: Pupils round, reactive to light. Extraocular muscles intact. Pallor plus. ENT: Dry appearing mucous membranes. No oral lesions. No pharyngeal erythema, no exudates. NECK: Supple, no JVD, no thyromegaly, no carotid bruit. LUNGS: Clear to auscultation without any rhonchi or rales. CARDIAC: S1 and S2 irregularly irregular. No murmur elicited, no gallop, no rub. ABDOMEN: Soft, bowel sounds present. No suprapubic tenderness. No peritoneal signs, no guarding, n o rigidity, no rebound, no distention. BACK: On examination, bilateral nephrostomy tube in place. No CVA tenderness. EXTREMITIES: Upper extremity; passive movements of all joints are normal. Lower extremity, no edema . Good peripheral pulsation. SKIN: No skin rash, pallor plus. NEUROLOGIC: Nonfocal examination. His speech is normal. He follows all commands. He have moves al l 4 limbs. His sensation is intact. Reflexes symmetrical. No focal neurological deficit noted. PSYCHIATRIC: Normal affect. IMAGING DATA AND SIGNIFICANT LABORATORY DATA: 1. EKG showing atrial fibrillation with rapid ventricular response, nonspecific ST-T changes. 2. Chest x-ray based on my review stable, mild cardiomegaly without any acute process. 3. CBC: WBC 10.1, hemoglobin 11.5, platelet 262 with bandemia. INR 1.2. 4. BMP: Sodium 126, potassium 4.1, chloride 91, carbon dioxide 23, BUN 14, creatinine 0.93, glucose 105, calcium 8.4. 5. LFT: AST 23, ALT 14, alkaline phosphatase 163, albumin 3.1. CK 108, CK-MB 0.5, troponin 0.032. BNP 147.1. ASSESSMENT AND PLAN/IMPRESSION: 1. Diarrhea with hematochezia, I am suspecting Clostridium difficile colitis. He has significant ba ndemia. He has several times diarrhea which are foul smelling now with blood. We will check stool f or Clostridium difficile. I will start empirically oral vancomycin 125 mg p.o. q.i.d. and Flagyl 500 mg IV q.8 hourly, Florastor 250 mg p.o. b.i.d. We will send stool for infection workup. 2. Hypotension, likely due to diarrhea, poor p.o. intake, nausea and vomiting. The patient will be given gentle IV fluid and NS at 75 mL per hour. 3. Hyponatremia and hypochloremia, likely due to protein calorie malnutrition as well as volume depl etion from diarrhea. The patient will be given NS at 75 mL per hour and we will repeat BMP tomorrow. We will check urinalysis, urine sodium, creatinine, random cortisol, TSH, urine and serum osmolalit y as a part of workup. 4. Influenza A is positive though patient does not have any respiratory symptoms. We will treat wit h Tamiflu 75 mg p.o. b.i.d. 5. Atrial fibrillation with rapid ventricular response, likely precipitated by underlying Clostridiu m difficile colitis, diarrhea and volume depletion. We will give him IV fluid. We will monitor on t elemetry floor. If needed, we will use digoxin for rate control because of low blood pressure. 6. Demand ischemia. Patient has elevated troponin, likely due to demand ischemia. We will do seria l cardiac enzymes and rule out acute coronary syndrome and monitor on telemetry floor. 7. Anemia of chronic disease. We will continue with ferrous sulfate 325 mg p.o. daily, folic acid a nd multivitamin therapy and vitamin B12 while in hospital. 8. Bandemia, rule out Clostridium difficile colitis, rule out urinary tract infection. 9. Sepsis. Patient has fever, tachycardia, hypotension, bandemia. Most likely source of infection is gastrointestinal. Underlying urinary tract infection cannot be entirely excluded. We will contin ue with Rocephin 1 gram q.24 hours along with Clostridium difficile treatment. 10. Metastatic prostate cancer. We will continue Decadron as needed basis. 11. Vitamin D deficiency. Continue vitamin D3 5000 units p.o. daily. 12. Moderate protein calorie malnutrition. The patient will be given Ensure 3 times daily. 13. Deep venous thrombosis prophylaxis, Lovenox 30 mg subcutaneously daily. 14. Gastrointestinal prophylaxis. Pepcid 20 mg p.o. b.i.d. 15. Code status: The patient is FULL CODE. The patient's is surrogate decision maker. Disposition plan based on clinical course. We are expecting patient's stay in the hospital more than 2 midnights. The patient will need PT, OT, and eventually the patient and family member wants to go home with home health and hospice care.
[2017-08-18 14:46] LABS: Troponin I 0.016 ng/mL (< 0.028)
[2017-08-18] MEDS ORDERED: Ondansetron ODT 4 MG TAB PO PRN (15:09)
[2017-08-18] MEDS ORDERED: Sodium Chloride 0.65% Nasal 44 ML BOT EA NARE PRN (15:09)
[2017-08-18] MEDS ORDERED: Loperamide HCl 2 MG CAP PO PRN (15:09)
[2017-08-18] MEDS ORDERED: HYDROcodone/Acetaminophen 5/325 mg Tablet PO PRN (15:09)
[2017-08-18] MEDS ORDERED: Zolpidem Tartrate 5 MG TAB PO PRN (15:09)
[2017-08-18] MEDS ORDERED: Ondansetron HCl/PF 4 MG/2 ML Vial IVP PRN (15:09)
[2017-08-18] MEDS ORDERED: Chloraseptic Spray 180 ml Bottle PO PRN (15:09)
[2017-08-18] MEDS ORDERED: Senokot 8.6 MG TAB PO PRN (15:09)
[2017-08-18] MEDS ORDERED: Mag-Al 1200 mg/1200 mg/30 ML UDCUP PO PRN (15:09)
[2017-08-18] MEDS ORDERED: hydrALAZINE 20 MG/ML VIAL SLOW IVP PRN (15:09)
[2017-08-18] MEDS ORDERED: Diabetic Tussin 200 MG/10 ML UDCUP PO PRN (15:09)
[2017-08-18] MEDS ORDERED: Acetaminophen 325 MG TAB PO PRN (15:09)
[2017-08-18] MEDS ORDERED: Benzonatate 100 MG CAP PO PRN (15:09)
[2017-08-18] MEDS ORDERED: Artificial Tears 18 DROP/0.9 ML EA EYE PRN (15:09)
[2017-08-18] MEDS ORDERED: Eucerin (Mineral Oil/Petrolatum,White) 30 gm Jar TOP PRN (15:09)
[2017-08-18] MEDS ORDERED: Milk Of Magnesia 30 ML UDCUP PO PRN ×2 (15:09)
[2017-08-18] MEDS ORDERED: cefTRIAXone\\ROCEPHIN 1 GM in Sodium Chloride 0.9% 100 ML IVPB SCH (15:09)
[2017-08-18] MEDS ORDERED: Loratadine 10 MG TAB PO PRN (15:09)
[2017-08-18] MEDS ORDERED: cefTRIAXone\\ROCEPHIN 1 GM, Syringe 0.4 ML in Sterile Water 9.6 ML SLOW IVP SCH (16:00)
[2017-08-18] MEDS ORDERED: Digoxin 0.5 MG/2 ML AMP SLOW IVP SCH (17:00)
[2017-08-18] MEDS ORDERED: Sodium Chloride 0.9% 0 ML ONE (17:19)
[2017-08-18] MEDS ORDERED: Sodium Chloride 0.9% 10 ML ONE (17:20)
[2017-08-18 17:28] LABS: Creatinine, Urine 35.38 mg/dL (63-166)
[2017-08-18] MEDS: Vancomycin HCl 25 MG/ML Oral PO SCH ×2 (18:06→21:16)
[2017-08-18 18:44] LABS: CKMB 0.7 ng/mL (0-6.6); Troponin I 0.028 ng/mL (< 0.028)
[2017-08-18] MEDS: Famotidine 20 MG TAB PO SCH (21:16)
[2017-08-18] MEDS: Oseltamivir 75 MG CAP PO SCH (21:17)
[2017-08-18] MEDS: metroNIDAZOLE 500 MG in Premix Bag 1 BAG IVPB SCH (21:17)
[2017-08-18 21:35] LABS: CKMB 0.7 ng/mL (0-6.6); Troponin I 0.036 ng/mL (< 0.028)
[2017-08-19] MEDS: metroNIDAZOLE 500 MG in Premix Bag 1 BAG IVPB SCH ×3 (04:50→21:24)
[2017-08-19 05:43] LABS: ALT (SGPT) 12 U/L (8-55); AST (SGOT) 24 U/L (5-34); Albumin 2.5 g/dL (3.4-4.8); Alkaline Phosphatase 141 U/L (40-150); Anion Gap 13 mmol/L (10-20); BUN (Urea Nitrogen) 9 mg/dL (8.4-25.7); Bilirubin, Total 0.3 mg/dL (0.2-1.2); Calc. Creatinine Clearance 69 mL/min (70-130); Calcium 7.8 mg/dL (7.8-10.44); Carbon Dioxide 22 mmol/L (23-31); Chloride 99 mmol/L (98-107); Estimated GFR-MDRD Greater than 90; Globulin 2.3 g/dL (2.4-3.5); Glucose 78 mg/dL (80-115); Potassium 3.8 mmol/L (3.5-5.1); Protein, Total 4.8 g/dL (5.8-8.1); Sodium 130 mmol/L (136-145)
[2017-08-19 05:54] LABS: Band 49 % (5-11); Hemoglobin 10.6 g/dL (14.0-18.0); Lymphocytes 8 % (21-51); MDiff Complete? YES; Mean Corpuscular HGB CONC 31.1 g/dL (32.0-36.0); Mean Corpuscular Hemoglobin 28.3 pg (27.0-31.0); Mean Corpuscular Volume 91.2 fl (80.0-94.0); Mean Platelet Volume 7.2 fL (7.4-10.4); Monocytes 4 % (0-10); Neutrophil 39 % (42-75); PLT Morphology Comment Appears Adequate; Platelet Count 226 thou/uL (130-400); RBC Distribution Width 18.6 % (11.5-14.5); Red Blood Cell (RBC) Count 3.74 mill/uL (4.70-6.10); White Blood Cell (WBC) Count 5.4 thou/uL (4.8-10.8)
[2017-08-19] MEDS ORDERED: FLU VACC TS2017-18 (>65YR) 0.5 ML SYRINGE IM ONE (09:00)
[2017-08-19] MEDS ORDERED: Saccharomyces boulardii 250 MG CAP PO SCH (09:00)
[2017-08-19] MEDS: Ferrous Sulfate 325 MG TAB PO SCH (09:03)
[2017-08-19] MEDS: Famotidine 20 MG TAB PO SCH ×2 (09:03→21:23)
[2017-08-19] MEDS: Saccharomyces boulardii 250 MG CAP PO SCH ×2 (09:03→21:23)
[2017-08-19] MEDS: Oseltamivir 75 MG CAP PO SCH ×2 (09:03→21:23)
[2017-08-19] MEDS: Vancomycin HCl 25 MG/ML Oral PO SCH ×4 (09:03→21:23)
[2017-08-19] MEDS: Folic Acid 1 MG TAB PO SCH (09:03)
[2017-08-19] MEDS: Cyanocobalamin (Vitamin B-12) 1,000 MCG TAB PO SCH (09:03)
[2017-08-19] MEDS: Multivitamin W/ Minerals 1 TAB PO SCH (09:03)
[2017-08-19] MEDS: Digoxin 0.25 MG TAB PO SCH (09:03)
[2017-08-19] MEDS: Enoxaparin Sodium 30 MG/0.3 ML SYRINGE SC SCH (09:04)
[2017-08-19] MEDS ORDERED: cefTRIAXone\\ROCEPHIN 1 GM in Sodium Chloride 0.9% 100 ML IVPB SCH (09:15)
[2017-08-19 09:49] VITALS: BMI 18.0
--- NOTE | 2017-08-19 11:42 | PDOC.PN ---
- Subjective Encounter Start Date: 08/19/17 Encounter Start Time: 07:15 -: old records requested/rev pt has diarrhoea, no vomiting, heart rate controlled, BP stable - Objective Resuscitation Status: Resuscitation Status FULL:Full Resuscitation MAR Reviewed: Yes Vital Signs & Weight: Vital Signs (12 hours) Temp Pulse Pulse Pulse Pulse Resp BP 08/19/17 09:55 117 H 160 H 120 H 124/64 08/19/17 09:03 102 H 08/19/17 09:01 102 H 16 08/19/17 08:29 118 H 119/84 08/19/17 04:39 98.6 F 104 H 22 H BP BP Pulse Ox 08/19/17 09:55 138/66 08/19/17 09:03 08/19/17 09:01 119/84 98 08/19/17 08:29 08/19/17 04:39 137/84 98 Weight Admit Weight 118 lb Weight 115 lb I&O: 08/18/17 08/19/17 08/20/17 06:59 06:59 06:59 Intake Total 875 Output Total 1450 Balance -575 Result Diagrams: 08/19/17 04:16 08/19/17 04:16 EKG Reviewed by me: Yes (afib) Phys Exam - Physical Examination Constitutional: NAD HEENT: PERRLA, moist MMs, sclera anicteric Neck: no JVD, supple Respiratory: no wheezing, no rales, no rhonchi Cardiovascular: no significant murmur, irregular Gastrointestinal: soft, non-tender, no distention, positive bowel sounds Musculoskeletal: no edema, pulses present Neurological: non-focal, normal sensation Lymphatic: no nodes Psychiatric: normal affect, A&O x 3 Skin: no rash, normal turgor Dx/Plan (1) Bacteremia due to Gram-negative bacteria Code(s): R78.81 - BACTEREMIA Status: Acute (2) Atrial fibrillation with RVR Code(s): I48.91 - UNSPECIFIED ATRIAL FIBRILLATION Status: Acute Comment: controlled rate (3) Clostridium difficile diarrhea Code(s): A04.7 - ENTEROCOLITIS DUE TO CLOSTRIDIUM DIFFICILE * DO NOT USE * Status: Acute (4) Demand ischemia Code(s): I24.8 - OTHER FORMS OF ACUTE ISCHEMIC HEART DISEASE Status: Acute (5) Hyponatremia Code(s): E87.1 - HYPO-OSMOLALITY AND HYPONATREMIA Status: Acute (6) Influenza A Code(s): J10.1 - FLU DUE TO OTH IDENT INFLUENZA VIRUS W OTH RESP MANIFEST Status: Acute (7) Protein-calorie malnutrition, moderate Code(s): E44.0 - MODERATE PROTEIN-CALORIE MALNUTRITION Status: Acute (8) Sepsis Code(s): A41.9 - SEPSIS, UNSPECIFIED ORGANISM Status: Acute Qualifiers: (9) Anemia in chronic kidney disease Code(s): N18.9 - CHRONIC KIDNEY DISEASE, UNSPECIFIED; D63.1 - ANEMIA IN CHRONIC KIDNEY DISEASE Status: Chronic (10) History of nephrostomy Code(s): Z87.448 - PERSONAL HISTORY OF OTHER DISEASES OF URINARY SYSTEM Status : Chronic (11) Paroxysmal atrial fibrillation Code(s): I48.0 - PAROXYSMAL ATRIAL FIBRILLATION Status: Chronic (12) Prostate cancer metastatic to bone Code(s): C61 - MALIGNANT NEOPLASM OF PROSTATE; C79.51 - SECONDARY MALIGNANT NEOPLASM OF BONE Status: Chronic - Plan cont current plan of care, plan discussed w/ family, continue antibiotics * continue rocephin for GNR * follow on culture result * continue oral vancomycin and IV flagyl for C-diff diarrhoea * contact isolation * nutritional support * increase cardizem CD * add digoxin * will monitor * repeat labs tomorrow * medication reviewed as below * symptomatic treatment * discussed with . Review of Systems - Review of Systems Constitutional: weakness. negative: fever, chills, sweats, malaise, other Respiratory: negative: Cough, Dry, Shortness of Breath, Hemoptysis, SOB with Excertion, Pleuritic Pain, Sputum, Wheezing Cardiovascular: negative: chest pain, palpitations, orthopnea, paroxysmal nocturnal dyspnea, edema, light headedness, other Gastrointestinal: Diarrhea. negative: Nausea, Vomiting, Abdominal Pain, Constipation, Melena, Hematochezia, Other Genitourinary: negative: Dysuria, Frequency, Incontinence, Hematuria, Retention , Other Musculoskeletal: negative: Neck Pain, Shoulder Pain, Arm Pain, Back Pain, Hand Pain, Leg Pain, Foot Pain, Other Skin: negative: Rash, Lesions, Hector, Bruising, Other - Medications/Allergies Allergies/Adverse Reactions: Allergies Allergy/AdvReac Type Severity Reaction Status Date / Time No Known Allergies Allergy Verified 08/18/17 14:59 Medications: Current Medications Acetaminophen (Tylenol) 650 mg PO Q4H PRN PRN Reason: Headache/Fever or Pain Hydrocodone Bitart/Acetaminophen ([place] 5/325) 1 tab PO Q4H PRN PRN Reason: Moderate Pain (4-6) Al Hydroxide/Mg Hydroxide (Maalox) 30 ml PO Q6H PRN PRN Reason: Heartburn or Indigestion Artificial Tears (Tears Naturale) 0 drop EA EYE PRN PRN PRN Reason: Dry Eyes Benzonatate (Tessalon) 100 mg PO Q4H PRN PRN Reason: Cough Cyanocobalamin (Vitamin B-12) 1,000 mcg PO DAILY [facility] Last Admin: 08/19/17 09:03 Dose: 1,000 mcg Digoxin (Lanoxin) 0.25 mg PO DAILY [facility] Last Admin: 08/19/17 09:03 Dose: 0.25 mg Diltiazem HCl (Cardizem Cd) 180 mg PO DAILY [facility] Last Admin: 08/19/17 09:03 Dose: 180 mg Enoxaparin Sodium (Lovenox) 30 mg SC 0900 [facility] Last Admin: 08/19/17 09:04 Dose: 30 mg Famotidine (Pepcid) 20 mg PO BID [facility] Last Admin: 08/19/17 09:03 Dose: 20 mg Ferrous Sulfate (Feosol) 325 mg PO QA[facility] Last Admin: 08/19/17 09:03 Dose: 325 mg Folic Acid (Folvite) 1 mg PO DAILY [facility] Last Admin: 08/19/17 09:03 Dose: 1 mg Guaifenesin (Robitussin Sf) 200 mg PO Q4H PRN PRN Reason: Cough Hydralazine HCl (Apresoline) 10 mg SLOW IVP Q4H PRN PRN Reason: Systolic BP > 180 Metronidazole 500 mg/ Device 100 mls @ 100 mls/hr IVPB Q8HR [facility] Last Admin: 08/19/17 04:50 Dose: 100 mls Ceftriaxone Sodium 1 gm/ (Syringe 0.4 ml/ Sterile Water) 10 mls @ 120 mls/hr SLOW IVP 1600 [facility] Iron/Minerals/Multivitamins (Theragran M) 1 tab PO DAILY [facility] Last Admin: 08/19/17 09:03 Dose: 1 tab Loperamide HCl (Imodium) 2 mg PO PRN PRN PRN Reason: Diarrhea/Loose Stools Loratadine (Claritin) 10 mg PO DAILYPRN PRN PRN Reason: Sinus Symptoms Magnesium Hydroxide (Milk Of Magnesium) 30 ml PO DAILYPRN PRN PRN Reason: Constipation Magnesium Hydroxide (Milk Of Magnesium) 30 ml PO DAILYPRN PRN PRN Reason: Constipation Mineral Oil/White Petrolatum (Eucerin Cream) 0 gm TOP BIDPRN PRN PRN Reason: Dry Skin Ondansetron HCl (Zofran Odt) 4 mg PO Q6H PRN PRN Reason: Nausea/Vomiting Ondansetron HCl (Zofran) 4 mg IVP Q6H PRN PRN Reason: Nausea/Vomiting Oseltamivir Phosphate (Tamiflu) 75 mg PO BID [facility] Stop: 08/23/17 09:01 Last Admin: 08/19/17 09:03 Dose: 75 mg Phenol (Chloraseptic [place] 180 Ml Bot) 0 ml PO PRN PRN PRN Reason: Sore Throat Saccharomyces Boulardii (Florastor) 250 mg PO BID [facility] Last Admin: 08/19/17 09:03 Dose: 250 mg Senna (Senokot) 2 tab PO HSPRN PRN PRN Reason: Constipation Sodium Chloride ([place] Nasal [place] 0.65%) 0 ml EA NARE QIDPRN PRN PRN Reason: Nasal Congestion Vancomycin HCl (First Vancomycin) 125 mg PO QID [facility] Last Admin: 08/19/17 09:03 Dose: 125 mg Zolpidem Tartrate (Ambien) 5 mg PO HSPRN PRN PRN Reason: Insomnia
[2017-08-19] MEDS: cefTRIAXone\\ROCEPHIN 1 GM, Syringe 0.4 ML in Sterile Water 9.6 ML SLOW IVP SCH (16:24)
[2017-08-20] MEDS: metroNIDAZOLE 500 MG in Premix Bag 1 BAG IVPB SCH ×3 (05:58→20:44)
[2017-08-20] MEDS: Enoxaparin Sodium 30 MG/0.3 ML SYRINGE SC SCH (08:23)
[2017-08-20] MEDS: Ferrous Sulfate 325 MG TAB PO SCH (08:23)
[2017-08-20] MEDS: Digoxin 0.25 MG TAB PO SCH (08:23)
[2017-08-20] MEDS: Cyanocobalamin (Vitamin B-12) 1,000 MCG TAB PO SCH (08:23)
[2017-08-20] MEDS: Saccharomyces boulardii 250 MG CAP PO SCH ×2 (08:24→20:42)
[2017-08-20] MEDS: Multivitamin W/ Minerals 1 TAB PO SCH (08:24)
[2017-08-20] MEDS: Famotidine 20 MG TAB PO SCH ×2 (08:24→20:42)
[2017-08-20] MEDS: Folic Acid 1 MG TAB PO SCH (08:24)
[2017-08-20] MEDS: Oseltamivir 75 MG CAP PO SCH ×2 (08:24→20:55)
[2017-08-20] MEDS: Vancomycin HCl 25 MG/ML Oral PO SCH ×4 (09:30→20:43)
--- NOTE | 2017-08-20 11:09 | PDOC.PN ---
- Subjective Encounter Start Date: 08/20/17 Encounter Start Time: 07:55 Patient seen and examined. No new complaints. No overnight events - Objective Resuscitation Status: Resuscitation Status FULL:Full Resuscitation MAR Reviewed: Yes Vital Signs & Weight: Vital Signs (12 hours) Temp Pulse Resp BP BP Pulse Ox 08/20/17 08:20 96.7 F L 110 H 16 125/74 100 08/20/17 08:00 96.7 F L 110 H 16 100 08/20/17 04:54 97.7 F 71 16 99/68 99 08/20/17 00:17 98.1 F 73 16 91/65 98 Weight Admit Weight 118 lb Weight 119 lb 3.2 oz I&O: 08/19/17 08/20/17 08/21/17 06:59 06:59 06:59 Intake Total 875 820 Output Total 1450 675 Balance -575 145 Result Diagrams: 08/19/17 04:16 08/19/17 04:16 EKG Reviewed by me: Yes (afib) Phys Exam - Physical Examination Constitutional: NAD HEENT: PERRLA, moist MMs, sclera anicteric Neck: no JVD, supple Respiratory: no wheezing, no rales, no rhonchi Cardiovascular: no significant murmur, irregular Gastrointestinal: soft, non-tender, no distention, positive bowel sounds Musculoskeletal: no edema, pulses present Neurological: non-focal, normal sensation Lymphatic: no nodes Psychiatric: normal affect Skin: no rash, normal turgor Dx/Plan (1) Bacteremia due to Gram-negative bacteria Code(s): R78.81 - BACTEREMIA Status: Acute (2) Atrial fibrillation with RVR Code(s): I48.91 - UNSPECIFIED ATRIAL FIBRILLATION Status: Acute Comment: controlled rate (3) Clostridium difficile diarrhea Code(s): A04.7 - ENTEROCOLITIS DUE TO CLOSTRIDIUM DIFFICILE * DO NOT USE * Status: Acute (4) Demand ischemia Code(s): I24.8 - OTHER FORMS OF ACUTE ISCHEMIC HEART DISEASE Status: Acute (5) Hyponatremia Code(s): E87.1 - HYPO-OSMOLALITY AND HYPONATREMIA Status: Acute (6) Influenza A Code(s): J10.1 - FLU DUE TO OTH IDENT INFLUENZA VIRUS W OTH RESP MANIFEST Status: Acute (7) Protein-calorie malnutrition, moderate Code(s): E44.0 - MODERATE PROTEIN-CALORIE MALNUTRITION Status: Acute (8) Sepsis Code(s): A41.9 - SEPSIS, UNSPECIFIED ORGANISM Status: Acute Qualifiers: (9) Anemia in chronic kidney disease Code(s): N18.9 - CHRONIC KIDNEY DISEASE, UNSPECIFIED; D63.1 - ANEMIA IN CHRONIC KIDNEY DISEASE Status: Chronic (10) History of nephrostomy Code(s): Z87.448 - PERSONAL HISTORY OF OTHER DISEASES OF URINARY SYSTEM Status : Chronic (11) Paroxysmal atrial fibrillation Code(s): I48.0 - PAROXYSMAL ATRIAL FIBRILLATION Status: Chronic (12) Prostate cancer metastatic to bone Code(s): C61 - MALIGNANT NEOPLASM OF PROSTATE; C79.51 - SECONDARY MALIGNANT NEOPLASM OF BONE Status: Chronic - Plan cont current plan of care, continue antibiotics * continue tamiflu * continue rocephin for UTI * continue oral vancomycin and flagyl for c-diff * repeat labs and culture tomorrow * monitor on tele for afib * medication reviewed as below * symptomatic treatment * discussed with . Review of Systems - Review of Systems ENT: negative: Ear Pain, Ear Discharge, Nose Pain, Nose Discharge, Nose Congestion, Mouth Pain, Mouth Swelling, Throat Pain, Throat Swelling, Other Respiratory: negative: Cough, Dry, Shortness of Breath, Hemoptysis, SOB with Excertion, Pleuritic Pain, Sputum, Wheezing Cardiovascular: negative: chest pain, palpitations, orthopnea, paroxysmal nocturnal dyspnea, edema, light headedness, other Gastrointestinal: negative: Nausea, Vomiting, Abdominal Pain, Diarrhea, Constipation, Melena, Hematochezia, Other Genitourinary: negative: Dysuria, Frequency, Incontinence, Hematuria, Retention , Other Musculoskeletal: negative: Neck Pain, Shoulder Pain, Arm Pain, Back Pain, Hand Pain, Leg Pain, Foot Pain, Other Skin: negative: Rash, Lesions, Hector, Bruising, Other - Medications/Allergies Allergies/Adverse Reactions: Allergies Allergy/AdvReac Type Severity Reaction Status Date / Time No Known Allergies Allergy Verified 08/18/17 14:59 Medications: Current Medications Acetaminophen (Tylenol) 650 mg PO Q4H PRN PRN Reason: Headache/Fever or Pain Hydrocodone Bitart/Acetaminophen ([place] 5/325) 1 tab PO Q4H PRN PRN Reason: Moderate Pain (4-6) Al Hydroxide/Mg Hydroxide (Maalox) 30 ml PO Q6H PRN PRN Reason: Heartburn or Indigestion Artificial Tears (Tears Naturale) 0 drop EA EYE PRN PRN PRN Reason: Dry Eyes Benzonatate (Tessalon) 100 mg PO Q4H PRN PRN Reason: Cough Cyanocobalamin (Vitamin B-12) 1,000 mcg PO DAILY [facility] Last Admin: 08/20/17 08:23 Dose: 1,000 mcg Digoxin (Lanoxin) 0.25 mg PO DAILY [facility] Last Admin: 08/20/17 08:23 Dose: 0.25 mg Diltiazem HCl (Cardizem Cd) 180 mg PO DAILY [facility] Last Admin: 08/20/17 08:23 Dose: 180 mg Enoxaparin Sodium (Lovenox) 30 mg SC 0900 [facility] Last Admin: 08/20/17 08:23 Dose: 30 mg Famotidine (Pepcid) 20 mg PO BID [facility] Last Admin: 08/20/17 08:24 Dose: 20 mg Ferrous Sulfate (Feosol) 325 mg PO QAM-[facility] Last Admin: 08/20/17 08:23 Dose: 325 mg Folic Acid (Folvite) 1 mg PO DAILY [facility] Last Admin: 08/20/17 08:24 Dose: 1 mg Guaifenesin (Robitussin Sf) 200 mg PO Q4H PRN PRN Reason: Cough Hydralazine HCl (Apresoline) 10 mg SLOW IVP Q4H PRN PRN Reason: Systolic BP > 180 Metronidazole 500 mg/ Device 100 mls @ 100 mls/hr IVPB Q8HR [facility] Last Admin: 08/20/17 05:58 Dose: 100 mls Ceftriaxone Sodium 1 gm/ (Syringe 0.4 ml/ Sterile Water) 10 mls @ 120 mls/hr SLOW IVP 1600 [facility] Last Admin: 08/19/17 16:24 Dose: 10 mls Iron/Minerals/Multivitamins (Theragran M) 1 tab PO DAILY [facility] Last Admin: 08/20/17 08:24 Dose: 1 tab Loperamide HCl (Imodium) 2 mg PO PRN PRN PRN Reason: Diarrhea/Loose Stools Loratadine (Claritin) 10 mg PO DAILYPRN PRN PRN Reason: Sinus Symptoms Magnesium Hydroxide (Milk Of Magnesium) 30 ml PO DAILYPRN PRN PRN Reason: Constipation Magnesium Hydroxide (Milk Of Magnesium) 30 ml PO DAILYPRN PRN PRN Reason: Constipation Mineral Oil/White Petrolatum (Eucerin Cream) 0 gm TOP BIDPRN PRN PRN Reason: Dry Skin Ondansetron HCl (Zofran Odt) 4 mg PO Q6H PRN PRN Reason: Nausea/Vomiting Ondansetron HCl (Zofran) 4 mg IVP Q6H PRN PRN Reason: Nausea/Vomiting Oseltamivir Phosphate (Tamiflu) 75 mg PO BID [facility] Stop: 08/23/17 09:01 Last Admin: 08/20/17 08:24 Dose: 75 mg Phenol (Chloraseptic [place] 180 Ml Bot) 0 ml PO PRN PRN PRN Reason: Sore Throat Saccharomyces Boulardii (Florastor) 250 mg PO BID [facility] Last Admin: 08/20/17 08:24 Dose: 250 mg Senna (Senokot) 2 tab PO HSPRN PRN PRN Reason: Constipation Sodium Chloride ([place] Nasal [place] 0.65%) 0 ml EA NARE QIDPRN PRN PRN Reason: Nasal Congestion Vancomycin HCl (First Vancomycin) 125 mg PO QID [facility] Last Admin: 08/20/17 09:30 Dose: 125 mg Zolpidem Tartrate (Ambien) 5 mg PO HSPRN PRN PRN Reason: Insomnia
--- NOTE | 2017-08-20 11:19 | EKG ---
Test Reason : Blood Pressure : / mmHG Vent. Rate : 131 BPM Atrial Rate : 141 BPM P-R Int : 000 ms QRS Dur : 070 ms QT Int : 316 ms P-R-T Axes : 000 049 035 degrees QTc Int : 466 ms Atrial fibrillation with rapid ventricular response Nonspecific ST and T wave abnormality Abnormal ECG Confirmed by MELVIN MOCK M.D. ([id number]), acquisition editor TRIP RUCKER ([id number] on 08/20/2017 11:18:24 AM Referred By: Confirmed By:MELVIN MOCK M.D.
[2017-08-20] MEDS: cefTRIAXone\\ROCEPHIN 1 GM, Syringe 0.4 ML in Sterile Water 9.6 ML SLOW IVP SCH (16:19)
[2017-08-21] MEDS: metroNIDAZOLE 500 MG in Premix Bag 1 BAG IVPB SCH ×3 (06:23→21:45)
[2017-08-21 06:54] LABS: Anion Gap 14 mmol/L (10-20); BUN (Urea Nitrogen) 6 mg/dL (8.4-25.7); Calc. Creatinine Clearance 78 mL/min (70-130); Calcium 7.5 mg/dL (7.8-10.44); Carbon Dioxide 23 mmol/L (23-31); Chloride 100 mmol/L (98-107); Estimated GFR-MDRD Greater than 90; Glucose 82 mg/dL (80-115); Magnesium 1.7 mg/dL (1.6-2.6); Phosphorus 2.7 mg/dL (2.3-4.7); Potassium 3.2 mmol/L (3.5-5.1); Sodium 134 mmol/L (136-145)
[2017-08-21] MEDS ORDERED: Potassium Chloride 20 MEQ TAB PO SCH (07:15)
[2017-08-21 07:57] LABS: Anisocytosis SLIGHT = 6-15 cells (100X) (0-5/hpf); Band 11 % (5-11); Hemoglobin 10.3 g/dL (14.0-18.0); Lymphocytes 4 % (21-51); MDiff Complete? YES; Mean Corpuscular HGB CONC 32.5 g/dL (32.0-36.0); Mean Corpuscular Hemoglobin 29.7 pg (27.0-31.0); Mean Corpuscular Volume 91.3 fl (80.0-94.0); Mean Platelet Volume 6.3 fL (7.4-10.4); Metamyelocyte 1 % (0-0); Monocytes 7 % (0-10); Neutrophil 76 % (42-75); PLT Morphology Comment Appears Adequate; Platelet Count 271 thou/uL (130-400); RBC Distribution Width 19.1 % (11.5-14.5); Reactive Lymphocytes 1 % (0-10); Red Blood Cell (RBC) Count 3.48 mill/uL (4.70-6.10)
--- NOTE | 2017-08-21 09:38 | PDOC.PN ---
- Subjective Encounter Start Date: 08/21/17 Encounter Start Time: 06:50 less diarrhoea, no fever, Patient seen and examined. No overnight events - Objective Resuscitation Status: Resuscitation Status FULL:Full Resuscitation MAR Reviewed: Yes Vital Signs & Weight: Vital Signs (12 hours) Temp Pulse Resp BP BP Pulse Ox 08/21/17 07:10 99.3 F 73 18 108/71 99 08/21/17 05:16 98 08/21/17 04:00 98.8 F 71 18 113/67 98 08/20/17 23:30 96.4 F L 60 20 105/57 L 98 Weight Admit Weight 118 lb Weight 118 lb 14.4 oz I&O: 08/20/17 08/21/17 08/22/17 06:59 06:59 06:59 Intake Total 820 1860 Output Total 675 2200 Balance 145 -340 Result Diagrams: 08/21/17 05:32 08/21/17 05:32 EKG Reviewed by me: Yes (afib) Phys Exam - Physical Examination Constitutional: NAD HEENT: PERRLA, moist MMs, sclera anicteric Neck: no JVD, supple Respiratory: no wheezing, no rales, no rhonchi Cardiovascular: no significant murmur, irregular Gastrointestinal: soft, non-tender, no distention, positive bowel sounds nephrostomy tube bilateral Musculoskeletal: no edema, pulses present Neurological: non-focal, normal sensation Lymphatic: no nodes Psychiatric: normal affect, A&O x 3 Skin: no rash, normal turgor Dx/Plan (1) Bacteremia due to Gram-negative bacteria Code(s): R78.81 - BACTEREMIA Status: Acute (2) Atrial fibrillation with RVR Code(s): I48.91 - UNSPECIFIED ATRIAL FIBRILLATION Status: Acute Comment: controlled rate (3) Clostridium difficile diarrhea Code(s): A04.7 - ENTEROCOLITIS DUE TO CLOSTRIDIUM DIFFICILE * DO NOT USE * Status: Acute (4) Demand ischemia Code(s): I24.8 - OTHER FORMS OF ACUTE ISCHEMIC HEART DISEASE Status: Acute (5) Hyponatremia Code(s): E87.1 - HYPO-OSMOLALITY AND HYPONATREMIA Status: Acute (6) Influenza A Code(s): J10.1 - FLU DUE TO OTH IDENT INFLUENZA VIRUS W OTH RESP MANIFEST Status: Acute (7) Protein-calorie malnutrition, moderate Code(s): E44.0 - MODERATE PROTEIN-CALORIE MALNUTRITION Status: Acute (8) Sepsis Code(s): A41.9 - SEPSIS, UNSPECIFIED ORGANISM Status: Acute Qualifiers: (9) Anemia in chronic kidney disease Code(s): N18.9 - CHRONIC KIDNEY DISEASE, UNSPECIFIED; D63.1 - ANEMIA IN CHRONIC KIDNEY DISEASE Status: Chronic (10) History of nephrostomy Code(s): Z87.448 - PERSONAL HISTORY OF OTHER DISEASES OF URINARY SYSTEM Status : Chronic (11) Paroxysmal atrial fibrillation Code(s): I48.0 - PAROXYSMAL ATRIAL FIBRILLATION Status: Chronic (12) Prostate cancer metastatic to bone Code(s): C61 - MALIGNANT NEOPLASM OF PROSTATE; C79.51 - SECONDARY MALIGNANT NEOPLASM OF BONE Status: Chronic (13) Hypokalemia Code(s): E87.6 - HYPOKALEMIA Status: Acute - Plan cont current plan of care, plan discussed w/ family, continue antibiotics * contineu tamiflu for influenza * continue rocephin for bacteremia and uti * codntinue oral vancomycin and flagyl for c-diff * dc tele * transfer to medical * start PT * medication reviewed as below * symptomatic treatment. * replace potassium Review of Systems - Review of Systems ENT: negative: Ear Pain, Ear Discharge, Nose Pain, Nose Discharge, Nose Congestion, Mouth Pain, Mouth Swelling, Throat Pain, Throat Swelling, Other Respiratory: negative: Cough, Dry, Shortness of Breath, Hemoptysis, SOB with Excertion, Pleuritic Pain, Sputum, Wheezing Cardiovascular: negative: chest pain, palpitations, orthopnea, paroxysmal nocturnal dyspnea, edema, light headedness, other Gastrointestinal: negative: Nausea, Vomiting, Abdominal Pain, Diarrhea, Constipation, Melena, Hematochezia, Other Genitourinary: negative: Dysuria, Frequency, Incontinence, Hematuria, Retention , Other Musculoskeletal: negative: Neck Pain, Shoulder Pain, Arm Pain, Back Pain, Hand Pain, Leg Pain, Foot Pain, Other Skin: negative: Rash, Lesions, Hector, Bruising, Other - Medications/Allergies Allergies/Adverse Reactions: Allergies Allergy/AdvReac Type Severity Reaction Status Date / Time No Known Allergies Allergy Verified 08/18/17 14:59 Medications: Current Medications Acetaminophen (Tylenol) 650 mg PO Q4H PRN PRN Reason: Headache/Fever or Pain Hydrocodone Bitart/Acetaminophen ([place] 5/325) 1 tab PO Q4H PRN PRN Reason: Moderate Pain (4-6) Al Hydroxide/Mg Hydroxide (Maalox) 30 ml PO Q6H PRN PRN Reason: Heartburn or Indigestion Artificial Tears (Tears Naturale) 0 drop EA EYE PRN PRN PRN Reason: Dry Eyes Benzonatate (Tessalon) 100 mg PO Q4H PRN PRN Reason: Cough Cyanocobalamin (Vitamin B-12) 1,000 mcg PO DAILY [facility] Last Admin: 08/20/17 08:23 Dose: 1,000 mcg Digoxin (Lanoxin) 0.25 mg PO DAILY [facility] Last Admin: 08/20/17 08:23 Dose: 0.25 mg Diltiazem HCl (Cardizem Cd) 180 mg PO DAILY [facility] Last Admin: 08/20/17 08:23 Dose: 180 mg Enoxaparin Sodium (Lovenox) 30 mg SC 0900 [facility] Last Admin: 08/20/17 08:23 Dose: 30 mg Famotidine (Pepcid) 20 mg PO BID [facility] Last Admin: 08/20/17 20:42 Dose: 20 mg Ferrous Sulfate (Feosol) 325 mg PO QA-[facility] Last Admin: 08/20/17 08:23 Dose: 325 mg Folic Acid (Folvite) 1 mg PO DAILY [facility] Last Admin: 08/20/17 08:24 Dose: 1 mg Guaifenesin (Robitussin Sf) 200 mg PO Q4H PRN PRN Reason: Cough Hydralazine HCl (Apresoline) 10 mg SLOW IVP Q4H PRN PRN Reason: Systolic BP > 180 Metronidazole 500 mg/ Device 100 mls @ 100 mls/hr IVPB Q8HR [facility] Last Admin: 08/21/17 06:23 Dose: 100 mls Ceftriaxone Sodium 1 gm/ (Syringe 0.4 ml/ Sterile Water) 10 mls @ 120 mls/hr SLOW IVP 1600 [facility] Last Admin: 08/20/17 16:19 Dose: 10 mls Iron/Minerals/Multivitamins (Theragran M) 1 tab PO DAILY [facility] Last Admin: 08/20/17 08:24 Dose: 1 tab Loperamide HCl (Imodium) 2 mg PO PRN PRN PRN Reason: Diarrhea/Loose Stools Loratadine (Claritin) 10 mg PO DAILYPRN PRN PRN Reason: Sinus Symptoms Magnesium Hydroxide (Milk Of Magnesium) 30 ml PO DAILYPRN PRN PRN Reason: Constipation Magnesium Hydroxide (Milk Of Magnesium) 30 ml PO DAILYPRN PRN PRN Reason: Constipation Mineral Oil/White Petrolatum (Eucerin Cream) 0 gm TOP BIDPRN PRN PRN Reason: Dry Skin Ondansetron HCl (Zofran Odt) 4 mg PO Q6H PRN PRN Reason: Nausea/Vomiting Ondansetron HCl (Zofran) 4 mg IVP Q6H PRN PRN Reason: Nausea/Vomiting Oseltamivir Phosphate (Tamiflu) 75 mg PO BID [facility] Stop: 08/23/17 09:01 Last Admin: 08/20/17 20:55 Dose: 75 mg Phenol (Chloraseptic [place] 180 Ml Bot) 0 ml PO PRN PRN PRN Reason: Sore Throat Saccharomyces Boulardii (Florastor) 250 mg PO BID [facility] Last Admin: 08/20/17 20:42 Dose: 250 mg Senna (Senokot) 2 tab PO HSPRN PRN PRN Reason: Constipation Sodium Chloride ([place] Nasal [place] 0.65%) 0 ml EA NARE QIDPRN PRN PRN Reason: Nasal Congestion Vancomycin HCl (First Vancomycin) 125 mg PO QID [facility] Last Admin: 08/20/17 20:43 Dose: 125 mg Zolpidem Tartrate (Ambien) 5 mg PO HSPRN PRN PRN Reason: Insomnia
[2017-08-21] MEDS: Ferrous Sulfate 325 MG TAB PO SCH (09:46)
[2017-08-21] MEDS: Folic Acid 1 MG TAB PO SCH (09:46)
[2017-08-21] MEDS: Multivitamin W/ Minerals 1 TAB PO SCH (09:46)
[2017-08-21] MEDS: Enoxaparin Sodium 30 MG/0.3 ML SYRINGE SC SCH (09:46)
[2017-08-21] MEDS: Famotidine 20 MG TAB PO SCH ×2 (09:46→20:36)
[2017-08-21] MEDS: Cyanocobalamin (Vitamin B-12) 1,000 MCG TAB PO SCH (09:47)
[2017-08-21] MEDS: Oseltamivir 75 MG CAP PO SCH ×2 (09:47→20:36)
[2017-08-21] MEDS: Saccharomyces boulardii 250 MG CAP PO SCH ×2 (09:47→20:36)
[2017-08-21] MEDS: Digoxin 0.25 MG TAB PO SCH (09:47)
[2017-08-21] MEDS: Vancomycin HCl 25 MG/ML Oral PO SCH ×4 (10:20→20:37)
[2017-08-21] MEDS: cefTRIAXone\\ROCEPHIN 1 GM, Syringe 0.4 ML in Sterile Water 9.6 ML SLOW IVP SCH (16:59)
[2017-08-22 05:02] VITALS: TEMP 98.1
[2017-08-22] MEDS: metroNIDAZOLE 500 MG in Premix Bag 1 BAG IVPB SCH (05:41)
[2017-08-22 08:55] VITALS: BP 115/88
[2017-08-22] MEDS: Vancomycin HCl 25 MG/ML Oral PO SCH ×2 (09:10→12:05)
[2017-08-22] MEDS: Famotidine 20 MG TAB PO SCH (09:11)
[2017-08-22] MEDS: Multivitamin W/ Minerals 1 TAB PO SCH (09:11)
[2017-08-22] MEDS: Ferrous Sulfate 325 MG TAB PO SCH (09:11)
[2017-08-22] MEDS: Enoxaparin Sodium 30 MG/0.3 ML SYRINGE SC SCH (09:12)
[2017-08-22] MEDS: Oseltamivir 75 MG CAP PO SCH (09:12)
[2017-08-22] MEDS: Folic Acid 1 MG TAB PO SCH (09:12)
[2017-08-22] MEDS: Saccharomyces boulardii 250 MG CAP PO SCH (09:12)
[2017-08-22] MEDS: Cyanocobalamin (Vitamin B-12) 1,000 MCG TAB PO SCH (09:12)
[2017-08-22] MEDS: Digoxin 0.25 MG TAB PO SCH (09:12)
--- NOTE | 2017-08-22 10:16 | PDOC.PN ---
- Subjective Encounter Start Date: 08/22/17 Encounter Start Time: 09:20 Patient seen and examined. No new complaints. No overnight events - Objective Resuscitation Status: Resuscitation Status FULL:Full Resuscitation MAR Reviewed: Yes Vital Signs & Weight: Vital Signs (12 hours) Temp Pulse Resp BP BP Pulse Ox 08/22/17 09:12 99 08/22/17 07:40 98.1 F 99 16 115/88 92 L 08/22/17 04:36 98.1 F 75 16 112/73 97 08/22/17 00:37 98.3 F 72 16 117/77 98 Weight Admit Weight 118 lb Weight 115 lb 9.6 oz I&O: 08/21/17 08/22/17 08/23/17 06:59 06:59 06:59 Intake Total 1860 600 Output Total 2200 1075 Balance -340 -475 Result Diagrams: 08/21/17 05:32 08/21/17 05:32 Phys Exam - Physical Examination Constitutional: NAD HEENT: PERRLA, moist MMs, sclera anicteric Neck: no JVD, supple Respiratory: no wheezing, no rales, no rhonchi Cardiovascular: no significant murmur, irregular Gastrointestinal: soft, non-tender, no distention, positive bowel sounds Musculoskeletal: no edema, pulses present Neurological: non-focal, normal sensation, moves all 4 limbs Psychiatric: normal affect, A&O x 3 Skin: no rash, normal turgor Dx/Plan (1) Bacteremia due to Gram-negative bacteria Code(s): R78.81 - BACTEREMIA Status: Acute (2) Atrial fibrillation with RVR Code(s): I48.91 - UNSPECIFIED ATRIAL FIBRILLATION Status: Acute Comment: controlled rate (3) Clostridium difficile diarrhea Code(s): A04.7 - ENTEROCOLITIS DUE TO CLOSTRIDIUM DIFFICILE * DO NOT USE * Status: Acute (4) Demand ischemia Code(s): I24.8 - OTHER FORMS OF ACUTE ISCHEMIC HEART DISEASE Status: Acute (5) Hyponatremia Code(s): E87.1 - HYPO-OSMOLALITY AND HYPONATREMIA Status: Acute (6) Influenza A Code(s): J10.1 - FLU DUE TO OTH IDENT INFLUENZA VIRUS W OTH RESP MANIFEST Status: Acute (7) Protein-calorie malnutrition, moderate Code(s): E44.0 - MODERATE PROTEIN-CALORIE MALNUTRITION Status: Acute (8) Sepsis Code(s): A41.9 - SEPSIS, UNSPECIFIED ORGANISM Status: Acute Qualifiers: (9) Anemia in chronic kidney disease Code(s): N18.9 - CHRONIC KIDNEY DISEASE, UNSPECIFIED; D63.1 - ANEMIA IN CHRONIC KIDNEY DISEASE Status: Chronic (10) History of nephrostomy Code(s): Z87.448 - PERSONAL HISTORY OF OTHER DISEASES OF URINARY SYSTEM Status : Chronic (11) Paroxysmal atrial fibrillation Code(s): I48.0 - PAROXYSMAL ATRIAL FIBRILLATION Status: Chronic (12) Prostate cancer metastatic to bone Code(s): C61 - MALIGNANT NEOPLASM OF PROSTATE; C79.51 - SECONDARY MALIGNANT NEOPLASM OF BONE Status: Chronic (13) Hypokalemia Code(s): E87.6 - HYPOKALEMIA Status: Acute - Plan cont current plan of care, plan discussed w/ family, continue antibiotics * medication reviewed as below * symptomatic treatment * ceftin on discharge for 10 days * taper oral vancomycin * flagyl for 2 week. Review of Systems - Review of Systems ENT: negative: Ear Pain, Ear Discharge, Nose Pain, Nose Discharge, Nose Congestion, Mouth Pain, Mouth Swelling, Throat Pain, Throat Swelling, Other Respiratory: negative: Cough, Dry, Shortness of Breath, Hemoptysis, SOB with Excertion, Pleuritic Pain, Sputum, Wheezing Cardiovascular: negative: chest pain, palpitations, orthopnea, paroxysmal nocturnal dyspnea, edema, light headedness, other Gastrointestinal: negative: Nausea, Vomiting, Abdominal Pain, Diarrhea, Constipation, Melena, Hematochezia, Other Genitourinary: negative: Dysuria, Frequency, Incontinence, Hematuria, Retention , Other Musculoskeletal: negative: Neck Pain, Shoulder Pain, Arm Pain, Back Pain, Hand Pain, Leg Pain, Foot Pain, Other - Medications/Allergies Allergies/Adverse Reactions: Allergies Allergy/AdvReac Type Severity Reaction Status Date / Time No Known Allergies Allergy Verified 08/18/17 14:59 Medications: Current Medications Acetaminophen (Tylenol) 650 mg PO Q4H PRN PRN Reason: Headache/Fever or Pain Hydrocodone Bitart/Acetaminophen ([place] 5/325) 1 tab PO Q4H PRN PRN Reason: Moderate Pain (4-6) Al Hydroxide/Mg Hydroxide (Maalox) 30 ml PO Q6H PRN PRN Reason: Heartburn or Indigestion Artificial Tears (Tears Naturale) 0 drop EA EYE PRN PRN PRN Reason: Dry Eyes Benzonatate (Tessalon) 100 mg PO Q4H PRN PRN Reason: Cough Cyanocobalamin (Vitamin B-12) 1,000 mcg PO DAILY [facility] Last Admin: 08/22/17 09:12 Dose: 1,000 mcg Digoxin (Lanoxin) 0.25 mg PO DAILY [facility] Last Admin: 08/22/17 09:12 Dose: 0.25 mg Diltiazem HCl (Cardizem Cd) 180 mg PO DAILY [facility] Last Admin: 08/22/17 09:12 Dose: 180 mg Enoxaparin Sodium (Lovenox) 30 mg SC 0900 [facility] Last Admin: 08/22/17 09:12 Dose: 30 mg Famotidine (Pepcid) 20 mg PO BID [facility] Last Admin: 08/22/17 09:11 Dose: 20 mg Ferrous Sulfate (Feosol) 325 mg PO QA-[facility] Last Admin: 08/22/17 09:11 Dose: 325 mg Folic Acid (Folvite) 1 mg PO DAILY [facility] Last Admin: 08/22/17 09:12 Dose: 1 mg Guaifenesin (Robitussin Sf) 200 mg PO Q4H PRN PRN Reason: Cough Hydralazine HCl (Apresoline) 10 mg SLOW IVP Q4H PRN PRN Reason: Systolic BP > 180 Metronidazole 500 mg/ Device 100 mls @ 100 mls/hr IVPB Q8HR [facility] Last Admin: 08/22/17 05:41 Dose: 100 mls Ceftriaxone Sodium 1 gm/ (Syringe 0.4 ml/ Sterile Water) 10 mls @ 120 mls/hr SLOW IVP 1600 [facility] Last Admin: 08/21/17 16:59 Dose: 10 mls Iron/Minerals/Multivitamins (Theragran M) 1 tab PO DAILY [facility] Last Admin: 08/22/17 09:11 Dose: 1 tab Loperamide HCl (Imodium) 2 mg PO PRN PRN PRN Reason: Diarrhea/Loose Stools Loratadine (Claritin) 10 mg PO DAILYPRN PRN PRN Reason: Sinus Symptoms Magnesium Hydroxide (Milk Of Magnesium) 30 ml PO DAILYPRN PRN PRN Reason: Constipation Magnesium Hydroxide (Milk Of Magnesium) 30 ml PO DAILYPRN PRN PRN Reason: Constipation Mineral Oil/White Petrolatum (Eucerin Cream) 0 gm TOP BIDPRN PRN PRN Reason: Dry Skin Ondansetron HCl (Zofran Odt) 4 mg PO Q6H PRN PRN Reason: Nausea/Vomiting Ondansetron HCl (Zofran) 4 mg IVP Q6H PRN PRN Reason: Nausea/Vomiting Oseltamivir Phosphate (Tamiflu) 75 mg PO BID [facility] Stop: 08/23/17 09:01 Last Admin: 08/22/17 09:12 Dose: 75 mg Phenol (Chloraseptic [place] 180 Ml Bot) 0 ml PO PRN PRN PRN Reason: Sore Throat Saccharomyces Boulardii (Florastor) 250 mg PO BID [facility] Last Admin: 08/22/17 09:12 Dose: 250 mg Senna (Senokot) 2 tab PO HSPRN PRN PRN Reason: Constipation Sodium Chloride ([place] Nasal [place] 0.65%) 0 ml EA NARE QIDPRN PRN PRN Reason: Nasal Congestion Vancomycin HCl (First Vancomycin) 125 mg PO QID [facility] Last Admin: 08/22/17 09:10 Dose: 125 mg Zolpidem Tartrate (Ambien) 5 mg PO HSPRN PRN PRN Reason: Insomnia
--- NOTE | 2017-08-22 10:50 | DIS ---
DATE OF ADMISSION: 08/18/2017 DATE OF DISCHARGE: 08/22/2017 PRIMARY CARE PHYSICIAN: [facility] call admission. DISCHARGE DISPOSITION: Home. PRIMARY DISCHARGE DIAGNOSES: 1. Atrial fibrillation with rapid ventricular response, rate controlled. 2. Bacteremia due to Escherichia coli. 3. Urinary tract infection due to Klebsiella and Stenotrophomonas. 4. Clostridium difficile colitis and diarrhea. 5. Demand ischemia of myocardium. 6. Influenza A. 7. Hypokalemia and hyponatremia. 8. Sepsis with acute organ dysfunction. SECONDARY DISCHARGE DIAGNOSES: Metastatic prostate cancer, paroxysmal atrial fibrillation, bilateral nephrostomy tube status, chronic disease anemia, moderate protein calorie malnutrition, physical dec onditioning. PRIMARY PROCEDURE/OPERATION: None. RADIOLOGICAL INVESTIGATION: Chest x-ray unremarkable. SIGNIFICANT LABORATORY DATA: Hemoglobin 10.3, INR 1.2, creatinine 0.67, blood culture positive for E . coli. Repeat blood culture negative. Urine culture positive for Klebsiella and Stenotrophomonas, C. difficile was positive. DISCHARGE MEDICATIONS: Ceftin 250 mg p.o. b.i.d. for 10 days for bacteremia and UTI, oral vancomycin 125 mg p.o. q.i.d. for 2 weeks and then 3 times daily for 1 week, followed by 2 times daily for 1 we ek, followed by daily for 1 week, Flagyl 250 mg p.o. t.i.d. for 2 weeks, vitamin D3 5000 units p.o. d aily, vitamin B12 1000 mcg p.o. daily, digoxin 125 mcg p.o. daily, Cardizem CD 180 mg p.o. daily, Pep vidal 20 mg p.o. b.i.d., ferrous sulfate 325 mg p.o. daily, folic acid 1 mg p.o. daily, [place] 1 tablet q.6 hourly p.r.n., multivitamin 1 tablet p.o. daily, potassium chloride 20 mEq p.o. daily, Florastor 250 mg p.o. b.i.d., Ambien 5 mg p.o. at bedtime p.r.n. CONTRAINDICATIONS: None. CODE STATUS: FULL CODE. INPATIENT CONSULTANTS: None. ALLERGIES: No known drug allergy. DISCHARGE PLAN: Post hospital, patient will follow up with primary care physician in 1 week. HOSPITAL COURSE: A 72-year-old male who was admitted by me. Please see my HPI for further details. On admission, he was having generalized weakness. He had hypotension. He was having diarrhea for a lmost 2-3 weeks. He has recent antibiotic exposure. He has diagnosis of Clostridium difficile diarr hea, which was treated with oral vancomycin and IV Flagyl with significant improvement. His bandemia was improving. We prescribed tapering doses of oral vancomycin and Flagyl. On discharge, his hypot ension resolved. His abnormal electrolytes, which was related with diarrhea were corrected. While in the hospital, he is completely treated for influenza with Tamiflu. While in hospital, he had atrial fibrillation with RVR, which was controlled with Cardizem. We added digoxin and we increased dose of Cardizem CD. His sepsis improved. This patient has metastatic pro state cancer and he was on hospice, but he has no DNR. At this point, the patient had significant improvement. He will finish oral antibiotics for bacterem ia and tapering doses of vancomycin and Flagyl for Clostridium difficile diarrhea. His long-term prognosis is poor. The patient is medically stable for discharge. The patient is seen and examined at bedside today. Please see my progress note from today for further details.
== END 2017-08-22 12:07 | disposition home or self-care (01) | DRG 872 ==
LOC: ERS 09:55 → 2NO 14:54 → T4-A 08-21 16:16
PROVIDERS: ADMIT Internal Medicine; ATTEND Internal Medicine
DX: A41.51 Sepsis due to Escherichia coli [E. coli] (principal); A04.72 Enterocolitis due to Clostridium difficile, not specified as recurrent; E44.0 Moderate protein-calorie malnutrition; I24.8 Other forms of acute ischemic heart disease; E87.1 Hypo-osmolality and hyponatremia; C61 Malignant neoplasm of prostate; D63.8 Anemia in other chronic diseases classified elsewhere; I48.91 Unspecified atrial fibrillation; N39.0 Urinary tract infection, site not specified; K92.1 Melena; R65.20 Severe sepsis without septic shock; B96.1 Klebsiella pneumoniae [K. pneumoniae] as the cause of diseases classified elsewhere; B96.89 Other specified bacterial agents as the cause of diseases classified elsewhere; E87.6 Hypokalemia; J11.1 Influenza due to unidentified influenza virus with other respiratory manifestations; E86.0 Dehydration
CPT/HCPCS: 36415; 71010; 80048; 80053; 82274; 82533; 82553; 82570; 83735; 83880; 83930; 83935; 84100; 84300; 84443; 84484; 85025; 85610; 85730; 87040; 87045; 87046; 87077; 87086; 87149; 87186; 87324; 87449; 87493; 87899; 93005; 96361; 96374; A4216; G8978-GP-CL; G8979-GP-CJ; G8987-GO-CL; G8988-GO-CJ; J0696; J1160; J1650